=== PATIENT | male | born 1940 | race African-American/Black ===

== ENCOUNTER 2016-10-04 14:59 | Inpatient (IN) | payer MEDICARE, OTHER ==
[~2016-10-04] VITALS: Ht 170.2 cm; Wt 74.5 kg
[~2016-10-04 14:59] MED LIST: AMIT50TA PO; DABI150C PO; DIGO125T PO; DILT120C4 PO; GLIP10TA13 PO; GLIP5TAB10 PO; LISI1TAB7 PO; METF500T4 PO; PROP150T2 PO
--- NOTE | 2016-10-04 15:27 | PHYS DOC ---
Past Medical History Past Medical History: Diabetes-Type II, Heart Disease, Hypertension Past Surgical History: No Surgical History Alcohol Use: None Drug Use: None Adult General HPI HPI Patient is a 76 year old male who presents after syncopal episode. Patient reports stating [place] when he felt a little dizzy and then apparently blacked out. He says he woke up with people surrounding him. He is feeling better now. No lightheadedness at this time. He denies any chest discomfort or shortness of breath at any point. Had a similar episode a few years ago. Review of Systems Review of Systems Constitutional: Lightheaded (resolved), syncope. Denies fever or chills Eyes: Denies change in visual acuity or eye pain HENT: Denies nasal congestion or sore throat Respiratory: Denies cough or shortness of breath Cardiovascular: Denies chest pain GI: Denies abdominal pain, nausea, vomiting, bloody stools or diarrhea : Denies dysuria or hematuria Musculoskeletal: Denies back pain or joint pain Integument: Denies rash or skin lesions Neurologic: Denies headache, focal weakness or sensory changes Current Medications Current Medications Current Medications Medications (Trade) Dose Ordered Sig/Michael Start Time Stop Time Status Last Admin Dose Admin Acetaminophen (Tylenol) 650 mg PRN Q4HRS PRN 10/04/16 16:30 10/05/16 16:29 Dextrose 12.5 gm PRN Q15MIN PRN 10/04/16 16:30 Morphine Sulfate 2 mg PRN Q2HR PRN 10/04/16 16:30 10/05/16 16:29 Ondansetron HCl (Zofran) 4 mg PRN Q8HRS PRN 10/04/16 16:30 10/05/16 16:29 Sodium Chloride (Iv Sodium Chloride 0.9% 500ml Bag) 500 ml @ 500 mls/hr 1X ONCE 10/04/16 16:00 10/04/16 16:59 DC 10/04/16 16:08 500 MLS/HR Allergies Allergies Allergies Coded Allergies Type Severity Reaction Last Updated Verified No Known Drug Allergies 11/30/13 No Physical Exam Physical Exam Constitutional: Well developed, well nourished, no acute distress, non-toxic appearance HENT: Normocephalic, atraumatic, bilateral external ears normal Eyes: PERRL, EOMI, conjunctiva normal, no discharge Neck: Normal range of motion, no stridor Cardiovascular: Heart rate normal, regular rhythm, no murmur Lungs & Thorax: Coarse breath sounds throughout on expiration Abdomen: Bowel sounds normal, soft, non-distended, no TTP Skin: Warm, dry, no erythema, no rash Extremities: No obvious deformity, no edema Neurologic: Alert and oriented X 3, no gross deficits noted Psychologic: Affect normal, judgement normal, mood normal Current Patient Data Vital Signs Vital Signs Date Time Temp Pulse Resp B/P Pulse Ox O2 Delivery O2 Flow Rate FiO2 10/04/16 16:19 76 21 112/59 99 10/04/16 15:19 Room Air 10/04/16 15:06 98.0 98.0 Lab Values Laboratory Tests Test 10/04/16 15:30 White Blood Count 7.8x10^3/uL (4.0-11.0) Red Blood Count 4.59x10^6/uL (4.30-5.70) Hemoglobin 14.1g/dL (13.0-17.5) Hematocrit 43.6% (39.0-53.0) Mean Corpuscular Volume 95fL (79-100) Mean Corpuscular Hemoglobin 31pg (25-35) Mean Corpuscular Hemoglobin Concent 32g/dL (31-37) Red Cell Distribution Width 13.1% (11.5-14.5) Platelet Count 255x10^3/uL (140-400) Neutrophils (%) (Auto) 72% (31-73) Lymphocytes (%) (Auto) 18% (24-48) L Monocytes (%) (Auto) 7% (0-9) Eosinophils (%) (Auto) 2% (0-3) Basophils (%) (Auto) 1% (0-3) Neutrophils # (Auto) 5.6x10^3uL (1.8-7.7) Lymphocytes # (Auto) 1.4x10^3/uL (1.0-4.8) Monocytes # (Auto) 0.5x10^3/uL (0.0-1.1) Eosinophils # (Auto) 0.2x10^3/uL (0.0-0.7) Basophils # (Auto) 0.1x10^3/uL (0.0-0.2) Sodium Level 144mmol/L (136-145) Potassium Level 5.0mmol/L (3.5-5.1) Chloride Level 105mmol/L (98-107) Carbon Dioxide Level 30mmol/L (21-32) Anion Gap 9 (6-14) Blood Urea Nitrogen 25mg/dL (8-26) Creatinine 1.5mg/dL (0.7-1.3) H Estimated GFR (Cockcroft-Gault) 54.9 Glucose Level 121mg/dL (70-99) H Calcium Level 9.3mg/dL (8.5-10.1) Magnesium Level 1.7mg/dL (1.8-2.4) L Troponin I Quantitative < 0.017ng/mL (0.000-0.055) Laboratory Tests 10/04/16 15:30 Laboratory Tests 10/04/16 15:30 EKG EKG EKG (my read): sinus rhythm, irregular, rate 67, incomplete RBBB, no acute ST/T changes Radiology/Procedures Radiology/Procedures CXR: IMPRESSION: 1. Mild chronic prominence of the basilar lung markings suggesting fibrosis. 2. No acute cardiopulmonary abnormality is detected. Course & Med Decision Making Course & Med Decision Making Pertinent Labs and Imaging studies reviewed. (See chart for details) Patient is 76 year old male who presents s/p syncopal episode. Asymptomatic at this time. Will check EKG, CXR, labs to evaluate. Small fluid bolus ordered. Labs notable for mild hypomagnesemia. Oral replacement ordered. Given age and comorbidities, will plan admission. Discussed with Dr. Madrigal, will admit under his care for further evaluation and treatment. Dragon Disclaimer Dragon Disclaimer This electronic medical record was generated, in whole or in part, using a voice recognition dictation system. Departure Departure Impression: Primary Impression: Syncope Disposition: 09 ADMITTED INPATIENT Admitting Physician: Romelia Madrigal Condition: STABLE Referrals: SANTANA LOPEZ MD (PCP) DELANEY CRAWLEY MD Oct 04, 2016 15:27
[2016-10-04 15:45] LABS: BASO # 0.1 x10^3/uL (0.0-0.2); BASO % 1 % (0-3); EOS % 2 % (0-3); HEMATOCRIT 43.6 % (39.0-53.0); HEMOGLOBIN 14.1 g/dL (13.0-17.5); LYMPH # 1.4 x10^3/uL (1.0-4.8); LYMPH % 18 % (24-48); MEAN CORPUSCULAR HEMOGLOBIN 31 pg (25-35); MEAN CORPUSCULAR HGB CONC 32 g/dL (31-37); MEAN CORPUSCULAR VOLUME 95 fL (79-100); MONO % 7 % (0-9); NEUT % 72 % (31-73); PLATELET COUNT 255 x10^3/uL (140-400); RED BLOOD COUNT 4.59 x10^6/uL (4.30-5.70); RED CELL DISTRIBUTION WIDTH 13.1 % (11.5-14.5); WHITE BLOOD COUNT 7.8 x10^3/uL (4.0-11.0)
--- NOTE | 2016-10-04 15:52 | RAD ---
Portable chest, 10/04/2016: History: Syncope Comparison is made to a study from 12/12/2013. The heart appears to be within normal limits in size. The pulmonary vascularity is normal. There is calcific plaquing of the aorta. Mild prominence of the basilar lung markings is probably due fibrosis. No pulmonary consolidation is seen. There is no evidence of pleural fluid. IMPRESSION: 1. Mild chronic prominence of the basilar lung markings suggesting fibrosis. 2. No acute cardiopulmonary abnormality is detected.
[2016-10-04] MEDS ORDERED: IV NORMAL SALINE 500ML BAG 500 ML IV ONE (16:00)
[2016-10-04 16:06] LABS: CALCIUM 9.3 mg/dL (8.5-10.1); CREATININE 1.5 mg/dL (0.7-1.3); GFR 54.9; MAGNESIUM 1.7 mg/dL (1.8-2.4)
[2016-10-04] MEDS ORDERED: ACETAMINOPHEN 325 MG TABLET. PO PRN (16:30)
[2016-10-04] MEDS ORDERED: ONDANSETRON PF 4 MG/2 ML VIAL. IV PRN (16:30)
[2016-10-04] MEDS ORDERED: DEXTROSE 50% 25 GM / 50ML DISP.SYRIN. IV PRN (16:30)
[2016-10-04] MEDS ORDERED: MORPHINE SULFATE 2 MG/ML DISP.SYRIN. IV PRN (16:30)
[2016-10-04] MEDS: INSULIN ASPART 300 UNITS/3 ML INSULN.PEN SQ SCH (17:00)
[2016-10-04] MEDS ORDERED: MAGNESIUM OXIDE 400 MG TABLET PO ONE (17:00)
[2016-10-04 18:09] VITALS: BP 130/54
--- NOTE | 2016-10-04 18:10 | ACF ---
Admission Forms Criteria SYNCOPE Clinical Indications for Admission to Inpatient Care ( Place 'X' for any and all applicable criteria): Admission is indicated for syncope and ANY ONE of the following (1)(2)(3)(4)(5) (6)(7) : [X]I. Inpatient admission required rather than observation care (Also use Syncope: Observation Care Criteria as appropriate) because of ANY ONE of the following: [ ]a) Hemodynamic instability that is severe or persistent [ ]b) Cardiac arrhythmias of immediate concern identified or strongly suspected (eg, needs electrophysiologic study) [ ]c) Acute coronary syndrome identified (Also use Myocardial Infarction or Angina Criteria form ) [ ]d) Structural cardiac disorder (eg, aortic stenosis) suspected as cause that requires immediate correction [ ]e) Respiratory symptoms (eg, dyspnea, tachypnea) that are severe or persistent [ ]f) Neurologic signs or symptoms that are severe or persistent ( eg, stroke, seizures, altered mental status) [ ]g) Severe electrolyte abnormalities requiring inpatient care [ ]h) Supplemental oxygen or respiratory treatment for over 24 hrs that are performable only in acute inpatient setting [ ]i) IV fluid to replace significant ongoing (eg, for over 24 hrs ) losses (>3 L/m2 per day) [ ]j) Continuous intravenous infusion of anticoagulation, platelet inhibitor, vasoactive, or antiarrhythmic medication(15)(16) [ ]k) Pulmonary artery catheter monitoring [ ]l) Temporary pacemaker placement(17) [ ]m) Emergent cardioversion(18) [X]n) Other conditions, treatment or monitoring requiring inpatient admission [ ]II. Suspicion of imminently dangerous cause (eg, rare causes like pericardial tamponade, pulmonary embolism) [ ]III. Syncope causing severe injury requiring hospitalization Extended stay beyond goal length of stay may be needed for(28) [ ]a) Dangerous arrhythmia(15)(23)(27)(29) [ ]b) Myocardial ischemia [ ]c) Seizure disorder [ ]d) Syncope-related injuries The original [employer] content created by [employer] has been revised. The portions of the content which have been revised are identified through the use of italic text or in bold, and Eliana RazoSuo Yi has neither reviewed nor approved the modified material. All other unmodified content is copyright [employer]. Please see references footnoted in the original [facility] edition 2016 Admission Criteria Met?: Yes HUONG MAURICIO Oct 04, 2016 18:09
[2016-10-04 19:59] VITALS: BP 118/54
[2016-10-04 22:36] VITALS: BP 104/56
--- NOTE | 2016-10-05 00:34 | HP ---
ADMIT DATE: 10/04/2016 CHIEF COMPLAINT: Syncope. HISTORY OF PRESENT ILLNESS: The patient is a pleasant elderly male who was at the [facility] [place], he passed out. The next thing he knew is he woke up with people standing over him. They called the ambulance. I have discussed the case with the ER physician. We are to admit the patient and consult Cardiology. PAST MEDICAL HISTORY: Diabetes, hypertension and coronary artery disease. ALLERGIES: None. FAMILY HISTORY: Coronary artery disease. SOCIAL HISTORY: He does not drink, smoke or take drugs. MEDICATIONS: Reviewed, please refer to the MRAD. REVIEW OF SYSTEMS: GENERAL: No history of weight change, weakness or fevers. SKIN: No bruising, hair changes or rashes. EYES: No blurred, double or loss of vision. NOSE AND THROAT: No history of nosebleeds, hoarseness or sore throat. HEART: No history of palpitations, chest pain or shortness of breath on exertion. LUNGS: Denies cough, hemoptysis, wheezing or shortness of breath. GASTROINTESTINAL: Denies changes in appetite, nausea, vomiting, diarrhea or constipation. GENITOURINARY: No history of frequency, urgency, hesitancy or nocturia. NEUROLOGIC: Denies history of numbness, tingling, tremor or weakness. PSYCHIATRIC: No history of panic, anxiety or depression. ENDOCRINE: No history of heat or cold intolerance, polyuria or polydipsia. EXTREMITIES: Denies muscle weakness, joint pain, pain on walking or stiffness. PHYSICAL EXAMINATION: VITAL SIGNS: Temperature afebrile, pulse 77, respirations 19, blood pressure 130/54. GENERAL: He is weak. He is sleeping. He awakens, though. He is pleasant and cooperative. HEART: Distant S1, S2. LUNGS: Clear. ABDOMEN: Soft, positive bowel sounds. EXTREMITIES: No edema. SKIN: No rashes. ENDOCRINE: No thyromegaly. LYMPHATICS: No cervical nodes. HEMATOPOIETIC: No bruising. LABORATORY DATA: Hematology normal. Electrolytes normal other than a creatinine of 1.5. Troponin is 0. ASSESSMENT AND PLAN: Syncope. The patient has been admitted. We are doing cardiac monitoring, resume home medicines. Consult Cardiology. ZAMZAM GARCIA DO DR: ABEL/deng JOB#: [id number] / [id number]
[2016-10-05 03:59] VITALS: BP 96/52
[2016-10-05 07:25] VITALS: BP 106/58
[2016-10-05] MEDS: INSULIN ASPART 300 UNITS/3 ML INSULN.PEN SQ SCH ×2 (07:48→12:00)
--- NOTE | 2016-10-05 09:16 | PDOC2 ---
CARDIAC CONSULT DATE OF CONSULT Date of Consult DATE: 10/05/16 TIME: 09:09 REASON FOR CONSULT Reason for Consult: syncope HISTORY OF PRESENT ILLNESS HISTORY OF PRESENT ILLNESS Mr Devine is a 76 year old male who presents after a syncopal episode. [place] when the episode occurred. He reports feeling some dizziness and then apparently slumped forward. His brother in law caught him before he struck his head. He did not fall off the stool. He states when he woke EMS was walking over to him. He denies biting his tongue, or loss of continence. He reports this same thing happened a couple years ago. He denies any chest discomfort, congestive symptoms, palpitations. He reports dyspnea on exertion and is only able to walk about 2 blocks. He says sometime he has to stop and rest due to fatigue and dyspnea but not always. He does state he never walks further because he "would fall out ". He reports having occasional dizzy spells but that they resolve if he gets up and walks. He says yesterday he did not get up and walk when he became dizzy. He would like to go home. PAST MEDICAL HISTORY Past Medical History Diabetes, hypertension and coronary artery disease. PAST SURGICAL HISTORY Past Surgical History none FAMILY HISTORY Family History Coronary artery disease. SOCIAL HISTORY Social History He smokes .5 to 1 ppd. He denies alcohol or illicit drugs. CURRENT MEDICATIONS CURRENT MEDICATIONS Home meds include: lisinopril/HCT 20/25 daily metformin 500mg daily Current Medications Medications (Trade) Dose Ordered Sig/Michael Route PRN Reason Start Time Stop Time Status Last Admin Dose Admin Sodium Chloride (Iv Sodium Chloride 0.9% 500ml Bag) 500 ml @ 500 mls/hr 1X ONCE IV 10/04/16 16:00 10/04/16 16:59 DC 10/04/16 16:08 Magnesium Oxide (Magnesium Oxide) 400 mg 1X ONCE PO 10/04/16 17:00 10/04/16 17:01 DC 10/04/16 16:55 ALLERGIES ALLERGIES: Coded Allergies: No Known Drug Allergies (Unverified , 11/30/13) ROS Review of System as per HPI or negative PHYSICAL EXAM General: Alert, Oriented X3, Cooperative, No acute distress HEENT: Atraumatic, EOMI, Mucous membr. moist/pink Lungs: Clear to auscultation, Normal air movement Heart: Regular rate, Normal S1, Normal S2, Other (no gallops,clicks or rubs) Abdomen: Normal bowel sounds, Soft, No tenderness Extremities: No cyanosis, No edema, Normal pulses Neuro: Normal gait, Normal speech, Strength at 5/5 X4 ext Psych/Mental Status: Mental status NL, Mood NL VITALS VITALS tele - sinus bradycardia in the low 40s with occasional PACs, HR up to 90s with exertion. Vital Signs Date Time Temp Pulse Resp B/P Pulse Ox O2 Delivery O2 Flow Rate FiO2 10/05/16 07:25 98.5 78 16 106/58 98 Room Air 98.5 LABS Lab: Laboratory Tests Test 10/04/16 15:30 10/04/16 20:28 10/04/16 22:35 10/05/16 04:04 White Blood Count 7.8x10^3/uL (4.0-11.0) Red Blood Count 4.59x10^6/uL (4.30-5.70) Hemoglobin 14.1g/dL (13.0-17.5) Hematocrit 43.6% (39.0-53.0) Mean Corpuscular Volume 95fL (79-100) Mean Corpuscular Hemoglobin 31pg (25-35) Mean Corpuscular Hemoglobin Concent 32g/dL (31-37) Red Cell Distribution Width 13.1% (11.5-14.5) Platelet Count 255x10^3/uL (140-400) Neutrophils (%) (Auto) 72% (31-73) Lymphocytes (%) (Auto) 18% (24-48) Monocytes (%) (Auto) 7% (0-9) Eosinophils (%) (Auto) 2% (0-3) Basophils (%) (Auto) 1% (0-3) Neutrophils # (Auto) 5.6x10^3uL (1.8-7.7) Lymphocytes # (Auto) 1.4x10^3/uL (1.0-4.8) Monocytes # (Auto) 0.5x10^3/uL (0.0-1.1) Eosinophils # (Auto) 0.2x10^3/uL (0.0-0.7) Basophils # (Auto) 0.1x10^3/uL (0.0-0.2) Sodium Level 144mmol/L (136-145) Potassium Level 5.0mmol/L (3.5-5.1) Chloride Level 105mmol/L (98-107) Carbon Dioxide Level 30mmol/L (21-32) Anion Gap 9 (6-14) Blood Urea Nitrogen 25mg/dL (8-26) Creatinine 1.5mg/dL (0.7-1.3) Estimated GFR (Cockcroft-Gault) 54.9 Glucose Level 121mg/dL (70-99) Calcium Level 9.3mg/dL (8.5-10.1) Magnesium Level 1.7mg/dL (1.8-2.4) Troponin I Quantitative < 0.017ng/mL (0.000-0.055) < 0.017ng/mL (0.000-0.055) < 0.017ng/mL (0.000-0.055) Glucose (Fingerstick) 135mg/dL (70-99) Test 10/05/16 07:41 Glucose (Fingerstick) 93mg/dL (70-99) IMAGES IMAGES CXR - IMPRESSION: 1. Mild chronic prominence of the basilar lung markings suggesting fibrosis. 2. No acute cardiopulmonary abnormality is detected. EKG EKG pending ASSESSMENT/PLAN ASSESSMENT/PLAN 1. syncope - Chelsi negative, no new episodes. 2. bradycardia - sinus with PACs, low rate 42. + chronotropic response. 3. hypertension - controlled 4. hypomagnesemia - replace per IM 5. renal insufficiency, likely chronic stage 3 6. diabetes mellitus - mgmt per IM Suggest echocardiogram and outpatient event monitoring and MPI. Avoid any AV jayashree blocking agents. Problems: DIANN HENLEY APRN Oct 05, 2016 09:16
[2016-10-05] MEDS ORDERED: ONDANSETRON PF 4 MG/2 ML VIAL. IV PRN (09:25)
--- NOTE | 2016-10-05 09:51 | EKG ---
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
[2016-10-05] MEDS ORDERED: HYDROCHLOROTHIAZIDE 25 MG TABLET PO SCH (10:00)
[2016-10-05] MEDS ORDERED: METFORMIN 500 MG TABLET. PO SCH (10:00)
[2016-10-05] MEDS ORDERED: LISINOPRIL 20 MG TABLET PO SCH (10:00)
[2016-10-05 10:18] VITALS: BP_SYST 93; BP_SYST 98; BP_DIAS 50; BP_DIAS 53
--- NOTE | 2016-10-05 12:18 | PDOC3 ---
Discharge Summary Visit Information Date of Admission: Oct 04, 2016 Date of Discharge: Oct 05, 2016 Admitting Diagnosis Comment: Syncope - likley vagal r/o arrhythmia Diabetes, hypertension and coronary artery disease. Final Diagnosis Problems Medical Problems: (1) Syncope Status: Acute Brief Hospital Course Allergies Allergies Coded Allergies Type Severity Reaction Last Updated Verified No Known Drug Allergies 11/30/13 No Vital Signs Vital Signs Date Time Temp Pulse Resp B/P Pulse Ox O2 Delivery O2 Flow Rate FiO2 10/05/16 10:18 67 93/50 98/53 10/05/16 07:25 98.5 16 98 Room Air 98.5 Lab Results Laboratory Tests Test 10/04/16 15:30 10/04/16 20:28 10/04/16 22:35 10/05/16 04:04 White Blood Count 7.8x10^3/uL (4.0-11.0) Red Blood Count 4.59x10^6/uL (4.30-5.70) Hemoglobin 14.1g/dL (13.0-17.5) Hematocrit 43.6% (39.0-53.0) Mean Corpuscular Volume 95fL (79-100) Mean Corpuscular Hemoglobin 31pg (25-35) Mean Corpuscular Hemoglobin Concent 32g/dL (31-37) Red Cell Distribution Width 13.1% (11.5-14.5) Platelet Count 255x10^3/uL (140-400) Neutrophils (%) (Auto) 72% (31-73) Lymphocytes (%) (Auto) 18% (24-48) Monocytes (%) (Auto) 7% (0-9) Eosinophils (%) (Auto) 2% (0-3) Basophils (%) (Auto) 1% (0-3) Neutrophils # (Auto) 5.6x10^3uL (1.8-7.7) Lymphocytes # (Auto) 1.4x10^3/uL (1.0-4.8) Monocytes # (Auto) 0.5x10^3/uL (0.0-1.1) Eosinophils # (Auto) 0.2x10^3/uL (0.0-0.7) Basophils # (Auto) 0.1x10^3/uL (0.0-0.2) Sodium Level 144mmol/L (136-145) Potassium Level 5.0mmol/L (3.5-5.1) Chloride Level 105mmol/L (98-107) Carbon Dioxide Level 30mmol/L (21-32) Anion Gap 9 (6-14) Blood Urea Nitrogen 25mg/dL (8-26) Creatinine 1.5mg/dL (0.7-1.3) Estimated GFR (Cockcroft-Gault) 54.9 Glucose Level 121mg/dL (70-99) Calcium Level 9.3mg/dL (8.5-10.1) Magnesium Level 1.7mg/dL (1.8-2.4) Troponin I Quantitative < 0.017ng/mL (0.000-0.055) < 0.017ng/mL (0.000-0.055) < 0.017ng/mL (0.000-0.055) Glucose (Fingerstick) 135mg/dL (70-99) Test 10/05/16 07:41 10/05/16 11:11 Glucose (Fingerstick) 93mg/dL (70-99) 156mg/dL (70-99) Laboratory Tests Test 10/04/16 15:30 10/04/16 20:28 10/04/16 22:35 10/05/16 04:04 White Blood Count 7.8x10^3/uL (4.0-11.0) Red Blood Count 4.59x10^6/uL (4.30-5.70) Hemoglobin 14.1g/dL (13.0-17.5) Hematocrit 43.6% (39.0-53.0) Mean Corpuscular Volume 95fL (79-100) Mean Corpuscular Hemoglobin 31pg (25-35) Mean Corpuscular Hemoglobin Concent 32g/dL (31-37) Red Cell Distribution Width 13.1% (11.5-14.5) Platelet Count 255x10^3/uL (140-400) Neutrophils (%) (Auto) 72% (31-73) Lymphocytes (%) (Auto) 18% (24-48) Monocytes (%) (Auto) 7% (0-9) Eosinophils (%) (Auto) 2% (0-3) Basophils (%) (Auto) 1% (0-3) Neutrophils # (Auto) 5.6x10^3uL (1.8-7.7) Lymphocytes # (Auto) 1.4x10^3/uL (1.0-4.8) Monocytes # (Auto) 0.5x10^3/uL (0.0-1.1) Eosinophils # (Auto) 0.2x10^3/uL (0.0-0.7) Basophils # (Auto) 0.1x10^3/uL (0.0-0.2) Sodium Level 144mmol/L (136-145) Potassium Level 5.0mmol/L (3.5-5.1) Chloride Level 105mmol/L (98-107) Carbon Dioxide Level 30mmol/L (21-32) Anion Gap 9 (6-14) Blood Urea Nitrogen 25mg/dL (8-26) Creatinine 1.5mg/dL (0.7-1.3) Estimated GFR (Cockcroft-Gault) 54.9 Glucose Level 121mg/dL (70-99) Calcium Level 9.3mg/dL (8.5-10.1) Magnesium Level 1.7mg/dL (1.8-2.4) Troponin I Quantitative < 0.017ng/mL (0.000-0.055) < 0.017ng/mL (0.000-0.055) < 0.017ng/mL (0.000-0.055) Glucose (Fingerstick) 135mg/dL (70-99) Test 10/05/16 07:41 10/05/16 11:11 Glucose (Fingerstick) 93mg/dL (70-99) 156mg/dL (70-99) Brief Hospital Course Mr. Devine is a 76 old AA m,deepthi [place], Remained UR cardiac anderson overnight, CARds saw, advised OP MPI and echo, Pt ddi well with PT < Advised stop metformin (crea 1.5) unitl rpt BMP 1-2 weeks by PCP Rx all; given to RN and pt Pt seen and examined Discharge Information Condition at Discharge: Improved, Stable Follow Up: Weeks (OP echo and MPI, BMP 1-2 weeks by PCP for RAMBO) Disposition/Orders: D/C to Home Scheduled Amitriptyline Hcl (Amitriptyline Hcl) 50 MG PO HS (Reported) Lisinopril/Hydrochlorothiazide (Lisinopril-Hctz 20-25 Mg Tab) 1 TAB PO DAILY ( Reported) Metformin Hcl (Metformin Hcl) 500 MG PO BID (Reported) LE SANFORD MD Oct 05, 2016 12:18
[2016-10-05] MEDS ORDERED: AMITRIPTYLINE HCL 50 MG TABLET PO SCH (21:00)
== END 2016-10-05 13:45 | disposition home or self-care (01) | DRG 312 ==
LOC: ER 14:59 → 5 SOUTH 16:36
PROVIDERS: ADMIT Internal Medicine; ATTEND Internal Medicine
DX: R55 Syncope and collapse (principal); E11.9 Type 2 diabetes mellitus without complications; E83.42 Hypomagnesemia; F17.200 Nicotine dependence, unspecified, uncomplicated; I25.10 Atherosclerotic heart disease of native coronary artery without angina pectoris; I12.9 Hypertensive chronic kidney disease with stage 1 through stage 4 chronic kidney disease, or unspecified chronic kidney disease; N18.3 Chronic kidney disease, stage 3 (moderate); Z82.49 Family history of ischemic heart disease and other diseases of the circulatory system
CPT/HCPCS: 36415; 71010; 80048; 82947; 83735; 84484; 85027; 93005; 96360; J1815; J7040; 97530; 99285-25

== ENCOUNTER 2017-12-28 18:48 | Inpatient (IN) | payer MEDICARE ==
[2017-12-28 21:06] LABS: ADD MAN DIFF? NO
[2017-12-28 21:08] LABS: BASO % 1 % (0-3); EOS # 0.2 x10^3/uL (0.0-0.7); EOS % 2 % (0-3); HEMATOCRIT 41.3 % (39.0-53.0); HEMOGLOBIN 13.7 g/dL (13.0-17.5); LYMPH # 1.2 x10^3/uL (1.0-4.8); LYMPH % 16 % (24-48); MEAN CORPUSCULAR HEMOGLOBIN 32 pg (25-35); MEAN CORPUSCULAR HGB CONC 33 g/dL (31-37); MEAN CORPUSCULAR VOLUME 96 fL (79-100); MONO # 0.6 x10^3/uL (0.0-1.1); MONO % 8 % (0-9); NEUT # 5.4 x10^3uL (1.8-7.7); NEUT % 73 % (31-73); PLATELET COUNT 192 x10^3/uL (140-400); RED CELL DISTRIBUTION WIDTH 13.3 % (11.5-14.5); WHITE BLOOD COUNT 7.4 x10^3/uL (4.0-11.0)
[2017-12-28 21:40] LABS: ANION GAP 4 (6-14); BLOOD UREA NITROGEN 17 mg/dL (8-26); BUN/CREATININE RATIO 11 (6-20); CALCIUM 8.5 mg/dL (8.5-10.1); CARBON DIOXIDE 29 mmol/L (21-32); CHLORIDE 110 mmol/L (98-107); CREATININE 1.6 mg/dL (0.7-1.3); GFR 50.8; GLUCOSE 156 mg/dL (70-99); SODIUM 143 mmol/L (136-145)
[2017-12-28 21:46] LABS: ALBUMIN 3.2 g/dL (3.4-5.0); ALBUMIN/GLOBULIN RATIO 0.8 (1.0-1.7); ALK PHOS 108 U/L (46-116); ALT (SGPT) 42 U/L (16-63); AST (SGOT) 23 U/L (15-37); TOTAL BILIRUBIN 0.4 mg/dL (0.2-1.0); TOTAL PROTEIN 7.2 g/dL (6.4-8.2)
[2017-12-28 21:52] LABS: NT-PRO BNP 555 pg/mL (0-449)
[2017-12-28] MEDS ORDERED: MORPHINE SULFATE 4 MG/ML DISP.SYRIN. IV (22:45)
[2017-12-28] MEDS ORDERED: ACETAMINOPHEN 325 MG TABLET. PO (22:45)
[2017-12-28] MEDS ORDERED: ONDANSETRON PF 4 MG/2 ML VIAL. IV (22:45)
[2017-12-28] MEDS ORDERED: NITROGLYCERIN SUBLINGUAL 0.4 MG BOTTLE OF 25. SL (22:45)
[2017-12-28] MEDS: cloNIDine HCL 0.1 MG TABLET PO (23:21)
[2017-12-29 04:26] LABS: ADD MAN DIFF? NO
[2017-12-29 04:33] LABS: BASO % 1 % (0-3); EOS # 0.2 x10^3/uL (0.0-0.7); EOS % 3 % (0-3); HEMOGLOBIN 12.6 g/dL (13.0-17.5); LYMPH # 1.3 x10^3/uL (1.0-4.8); LYMPH % 21 % (24-48); MEAN CORPUSCULAR HEMOGLOBIN 32 pg (25-35); MEAN CORPUSCULAR HGB CONC 33 g/dL (31-37); MEAN CORPUSCULAR VOLUME 96 fL (79-100); MONO # 0.6 x10^3/uL (0.0-1.1); MONO % 10 % (0-9); NEUT # 4.1 x10^3uL (1.8-7.7); NEUT % 65 % (31-73); PLATELET COUNT 176 x10^3/uL (140-400); RED BLOOD COUNT 3.97 x10^6/uL (4.30-5.70); RED CELL DISTRIBUTION WIDTH 13.3 % (11.5-14.5); WHITE BLOOD COUNT 6.3 x10^3/uL (4.0-11.0)
[2017-12-29 05:35] LABS: ANION GAP 5 (6-14); BLOOD UREA NITROGEN 16 mg/dL (8-26); CALCIUM 7.6 mg/dL (8.5-10.1); CARBON DIOXIDE 28 mmol/L (21-32); CHLORIDE 111 mmol/L (98-107); CREATININE 1.5 mg/dL (0.7-1.3); GFR 54.8; GLUCOSE 124 mg/dL (70-99); POTASSIUM 3.6 mmol/L (3.5-5.1); SODIUM 144 mmol/L (136-145)
[2017-12-29] MEDS: IPRATRPIUM/ALBUTEROL 0.5/2.5MG 3 ML NEBU. NEB ×4 (07:36→20:26)
[2017-12-29 08:46] LABS: POC GLUCOSE 135 mg/dL (70-99)
[2017-12-29] MEDS: ENOXAPARIN 40 MG/0.4 ML SYRINGE. SQ (10:16)
[2017-12-29 11:30] LABS: POC GLUCOSE 162 mg/dL (70-99)
[2017-12-29] MEDS: hydroCHLOROthiazide 12.5 MG CAPSULE PO (11:42)
[2017-12-29] MEDS: LISINOPRIL 20 MG TABLET PO (11:42)
[2017-12-29] MEDS: INSULIN LISPRO 300 UNITS/3 ML INSULN.PEN. SQ ×2 (11:48→17:12)
[2017-12-29 16:59] LABS: POC GLUCOSE 155 mg/dL (70-99)
[2017-12-29 20:56] LABS: POC GLUCOSE 189 mg/dL (70-99)
[2017-12-30] MEDS: IPRATRPIUM/ALBUTEROL 0.5/2.5MG 3 ML NEBU. NEB (07:13)
[2017-12-30 07:59] LABS: POC GLUCOSE 103 mg/dL (70-99)
[2017-12-30] MEDS: INSULIN LISPRO 300 UNITS/3 ML INSULN.PEN. SQ ×3 (08:00→17:00)
[2017-12-30] MEDS: ENOXAPARIN 40 MG/0.4 ML SYRINGE. SQ (09:27)
[2017-12-30 11:54] LABS: POC GLUCOSE 186 mg/dL (70-99)
[2017-12-30 15:06] LABS: ANION GAP 7 (6-14); BLOOD UREA NITROGEN 12 mg/dL (8-26); CALCIUM 8.4 mg/dL (8.5-10.1); CARBON DIOXIDE 29 mmol/L (21-32); CHLORIDE 106 mmol/L (98-107); CREATININE 1.5 mg/dL (0.7-1.3); GFR 54.8; GLUCOSE 96 mg/dL (70-99); MAGNESIUM 1.7 mg/dL (1.8-2.4); POTASSIUM 3.8 mmol/L (3.5-5.1); SODIUM 142 mmol/L (136-145)
[2017-12-30 15:18] LABS: THYROID STIM HORMONE (TSH) 2.489 uIU/mL (0.358-3.74)
[2017-12-30] MEDS: amLODIPine BESYLATE 5 MG TABLET PO (15:53)
[2017-12-30 16:50] LABS: POC GLUCOSE 67 mg/dL (70-99)
[2017-12-30 17:18] LABS: POC GLUCOSE 82 mg/dL (70-99)
[2017-12-30] MEDS: MAGNESIUM SULFATE 1GM 100 ML IV (20:32)
[2017-12-30 20:52] LABS: POC GLUCOSE 136 mg/dL (70-99)
[2017-12-31] MEDS: INSULIN LISPRO 300 UNITS/3 ML INSULN.PEN. SQ ×3 (08:00→16:44)
[2017-12-31 08:24] LABS: POC GLUCOSE 99 mg/dL (70-99)
[2017-12-31 08:30] LABS: CHOLESTEROL 169 mg/dL (0-200); HDLC 43 mg/dL (40-60); LDLC 111 mg/dL (0-100); NON-HDL CHOLESTEROL 126 mg/dL (0-129); TRIGLYCERIDES 74 mg/dL (0-150); VLDLC 15 mg/dL (0-40)
[2017-12-31 08:33] LABS: CHOLESTEROL/HDL RATIO 3.9
[2017-12-31] MEDS: REGADENOSON 0.4 MG/5 ML DISP.SYRIN. IV (10:40)
[2017-12-31 11:47] LABS: POC GLUCOSE 130 mg/dL (70-99)
[2017-12-31] MEDS: hydroCHLOROthiazide 12.5 MG CAPSULE PO (11:55)
[2017-12-31] MEDS: LISINOPRIL 10 MG TABLET PO (11:55)
[2017-12-31] MEDS: ASPIRIN ENTERIC COATED 81 MG TABLET.DR. PO (11:55)
[2017-12-31] MEDS: amLODIPine BESYLATE 5 MG TABLET PO ×2 (11:57→19:59)
[2017-12-31] MEDS: ENOXAPARIN 40 MG/0.4 ML SYRINGE. SQ (11:58)
[2017-12-31 16:21] LABS: POC GLUCOSE 127 mg/dL (70-99)
[2017-12-31] MEDS ORDERED: hydrALAZINE 20 MG/ML VIAL. IVP (17:30)
[2017-12-31 20:51] LABS: POC GLUCOSE 137 mg/dL (70-99)
[2017-12-31] MEDS: ATORVASTATIN CALCIUM 10 MG TABLET. PO (20:55)
[2018-01-01 07:49] LABS: POC GLUCOSE 102 mg/dL (70-99)
[2018-01-01] MEDS: INSULIN LISPRO 300 UNITS/3 ML INSULN.PEN. SQ ×3 (07:51→17:29)
[2018-01-01] MEDS: ENOXAPARIN 40 MG/0.4 ML SYRINGE. SQ (07:53)
[2018-01-01] MEDS: hydroCHLOROthiazide 12.5 MG CAPSULE PO (07:53)
[2018-01-01] MEDS: amLODIPine BESYLATE 5 MG TABLET PO ×2 (07:53→11:11)
[2018-01-01] MEDS: ASPIRIN ENTERIC COATED 81 MG TABLET.DR. PO (07:54)
[2018-01-01] MEDS: LISINOPRIL 10 MG TABLET PO (07:54)
[2018-01-01 11:28] LABS: POC GLUCOSE 129 mg/dL (70-99)
[2018-01-01 11:45] LABS: ANION GAP 8 (6-14); BLOOD UREA NITROGEN 13 mg/dL (8-26); CALCIUM 9.2 mg/dL (8.5-10.1); CARBON DIOXIDE 29 mmol/L (21-32); CHLORIDE 101 mmol/L (98-107); CREATININE 1.3 mg/dL (0.7-1.3); GFR 64.6; GLUCOSE 131 mg/dL (70-99); POTASSIUM 3.7 mmol/L (3.5-5.1); SODIUM 138 mmol/L (136-145)
[2018-01-01] MEDS ORDERED: LIDOCAINE 2%/EPI 1:100,000 20 ML VIAL. (12:41)
[2018-01-01] MEDS ORDERED: fentaNYL PF VIAL 250 MCG/5 ML VIAL (13:24)
[2018-01-01] MEDS ORDERED: MIDAZOLAM HCL/PF 5 MG/5 ML VIAL. (13:25)
[2018-01-01] MEDS: fentaNYL PF VIAL 250 MCG/5 ML VIAL IV (14:36)
[2018-01-01] MEDS: LIDOCAINE 2%/EPI 1:100,000 20 ML VIAL. IJ (14:36)
[2018-01-01] MEDS: MIDAZOLAM HCL/PF 5 MG/5 ML VIAL. IV (14:37)
[2018-01-01] MEDS: BACITRACIN 50,000 UNIT in IV NORMAL SALINE 250ML 250 ML IRR (14:37)
[2018-01-01] MEDS: METOPROLOL TARTRATE 5 MG/5 ML VIAL. IVP (15:52)
[2018-01-01] MEDS ORDERED: oxyCODONE/APAP 5/325 1 TAB TABLET PO (16:00)
[2018-01-01] MEDS ORDERED: NO ANTICOAGULANT THERAPY. MC (16:00)
[2018-01-01 17:02] LABS: POC GLUCOSE 183 mg/dL (70-99)
[2018-01-01] MEDS: METOPROLOL TART IMMED RELEASE 25 MG TABLET. PO (17:29)
[2018-01-01 20:39] LABS: BILIRUBIN,URINE NEGATIVE (NEG); CLARITY,URINE CLEAR; COLOR,URINE YELLOW; GLUCOSE,URINE NEGATIVE (NEG); NITRITE,URINE NEGATIVE (NEG); PROTEIN,URINE NEGATIVE (NEG-TRACE)
[2018-01-01 20:53] LABS: BACTERIA,URINE MOD /HPF (0-FEW); RBC,URINE 0 /HPF (0-2); SQUAMOUS EPITHELIAL CELL,UR OCC /LPF
[2018-01-01] MEDS: ATORVASTATIN CALCIUM 10 MG TABLET. PO (20:56)
[2018-01-01 21:05] LABS: POC GLUCOSE 206 mg/dL (70-99)
[2018-01-02] MEDS: METOPROLOL TART IMMED RELEASE 25 MG TABLET. PO ×4 (00:33→22:42)
[2018-01-02] MEDS: FUROSEMIDE 40 MG/4 ML VIAL. IVP ×3 (07:45→14:59)
[2018-01-02 08:00] LABS: POC GLUCOSE 105 mg/dL (70-99)
[2018-01-02] MEDS: INSULIN LISPRO 300 UNITS/3 ML INSULN.PEN. SQ ×3 (08:00→17:00)
[2018-01-02] MEDS: ENOXAPARIN 40 MG/0.4 ML SYRINGE. SQ (09:22)
[2018-01-02] MEDS: hydroCHLOROthiazide 12.5 MG CAPSULE PO (09:22)
[2018-01-02] MEDS: amLODIPine BESYLATE 5 MG TABLET PO (09:22)
[2018-01-02] MEDS: LISINOPRIL 10 MG TABLET PO (09:22)
[2018-01-02] MEDS: ASPIRIN ENTERIC COATED 81 MG TABLET.DR. PO (09:22)
[2018-01-02] MEDS: FUROSEMIDE 40 MG TABLET. PO (10:36)
[2018-01-02 12:23] LABS: ANION GAP 10 (6-14); BLOOD UREA NITROGEN 17 mg/dL (8-26); CALCIUM 8.8 mg/dL (8.5-10.1); CARBON DIOXIDE 28 mmol/L (21-32); CHLORIDE 100 mmol/L (98-107); CREATININE 1.6 mg/dL (0.7-1.3); GFR 50.8; GLUCOSE 198 mg/dL (70-99); MAGNESIUM 1.7 mg/dL (1.8-2.4); POTASSIUM 4.1 mmol/L (3.5-5.1); SODIUM 138 mmol/L (136-145)
[2018-01-02 12:36] LABS: POC GLUCOSE 213 mg/dL (70-99)
[2018-01-02] MEDS: DIGOXIN IV 500 MCG/2 ML AMPUL. IV (13:19)
[2018-01-02] MEDS: FUROSEMIDE 20 MG/2 ML VIAL. IVP ×2 (13:20→13:30)
[2018-01-02] MEDS: METOPROLOL TARTRATE 5 MG/5 ML VIAL. IVP (13:30)
[2018-01-02] MEDS ORDERED: ANTI-COAG MONITOR BY PHARMACY. MC (13:45)
[2018-01-02 16:56] LABS: POC GLUCOSE 109 mg/dL (70-99)
[2018-01-02] MEDS: ATORVASTATIN CALCIUM 10 MG TABLET. PO (20:36)
[2018-01-03] MEDS: METOPROLOL TART IMMED RELEASE 25 MG TABLET. PO ×2 (06:44→20:33)
[2018-01-03] MEDS: INSULIN LISPRO 300 UNITS/3 ML INSULN.PEN. SQ ×3 (08:00→17:00)
[2018-01-03 08:19] LABS: POC GLUCOSE 149 mg/dL (70-99)
[2018-01-03] MEDS ORDERED: METOPROLOL TART IMMED RELEASE 25 MG TABLET. PO (09:00)
[2018-01-03] MEDS: hydroCHLOROthiazide 12.5 MG CAPSULE PO (09:09)
[2018-01-03] MEDS: amLODIPine BESYLATE 5 MG TABLET PO (09:09)
[2018-01-03] MEDS: DIGOXIN IV 500 MCG/2 ML AMPUL. IV ×3 (09:10→18:30)
[2018-01-03] MEDS: LISINOPRIL 10 MG TABLET PO (09:10)
[2018-01-03 12:00] LABS: POC GLUCOSE 184 mg/dL (70-99)
[2018-01-03 13:05] LABS: HEMATOCRIT 50.3 % (39.0-53.0); HEMOGLOBIN 17.2 g/dL (13.0-17.5); MEAN CORPUSCULAR HEMOGLOBIN 32 pg (25-35); MEAN CORPUSCULAR HGB CONC 34 g/dL (31-37); MEAN CORPUSCULAR VOLUME 94 fL (79-100); PLATELET COUNT 168 x10^3/uL (140-400); RED BLOOD COUNT 5.33 x10^6/uL (4.30-5.70); RED CELL DISTRIBUTION WIDTH 13.4 % (11.5-14.5)
[2018-01-03] MEDS: APIXABAN 5 MG TABLET. PO ×2 (13:23→20:32)
[2018-01-03 14:12] LABS: ALBUMIN 3.2 g/dL (3.4-5.0); ALBUMIN/GLOBULIN RATIO 0.7 (1.0-1.7); ALK PHOS 98 U/L (46-116); ALT (SGPT) 61 U/L (16-63); ANION GAP 8 (6-14); AST (SGOT) 55 U/L (15-37); BLOOD UREA NITROGEN 31 mg/dL (8-26); BUN/CREATININE RATIO 17 (6-20); CALCIUM 9.2 mg/dL (8.5-10.1); CARBON DIOXIDE 25 mmol/L (21-32); CHLORIDE 100 mmol/L (98-107); CREATININE 1.8 mg/dL (0.7-1.3); GFR 44.4; GLUCOSE 169 mg/dL (70-99); SODIUM 133 mmol/L (136-145); TOTAL BILIRUBIN 0.5 mg/dL (0.2-1.0); TOTAL PROTEIN 7.5 g/dL (6.4-8.2)
[2018-01-03] MEDS ORDERED: IV NORMAL SALINE 250ML 250 ML IV (14:15)
[2018-01-03] MEDS: IV NORMAL SALINE 500ML BAG 250 ML IV (14:15)
[2018-01-03] MEDS: MAGNESIUM CHLORIDE ER 64 MG TABLET.ER PO ×2 (15:18→20:32)
[2018-01-03 17:30] LABS: POC GLUCOSE 126 mg/dL (70-99)
[2018-01-03] MEDS: ATORVASTATIN CALCIUM 10 MG TABLET. PO (20:32)
[2018-01-03 21:16] LABS: POC GLUCOSE 169 mg/dL (70-99)
[2018-01-04] MEDS: INSULIN LISPRO 300 UNITS/3 ML INSULN.PEN. SQ ×3 (08:00→16:45)
[2018-01-04 08:23] LABS: POC GLUCOSE 123 mg/dL (70-99)
[2018-01-04] MEDS: APIXABAN 5 MG TABLET. PO ×2 (09:24→20:56)
[2018-01-04] MEDS: hydroCHLOROthiazide 12.5 MG CAPSULE PO (09:24)
[2018-01-04] MEDS: MAGNESIUM CHLORIDE ER 64 MG TABLET.ER PO ×2 (09:24→20:56)
[2018-01-04] MEDS: METOPROLOL TART IMMED RELEASE 25 MG TABLET. PO ×2 (09:25→20:58)
[2018-01-04 12:13] LABS: POC GLUCOSE 220 mg/dL (70-99)
[2018-01-04 15:12] LABS: ALBUMIN/GLOBULIN RATIO 0.7 (1.0-1.7); ALK PHOS 88 U/L (46-116); ALT (SGPT) 77 U/L (16-63); ANION GAP 6 (6-14); AST (SGOT) 57 U/L (15-37); BLOOD UREA NITROGEN 29 mg/dL (8-26); BUN/CREATININE RATIO 17 (6-20); CALCIUM 8.5 mg/dL (8.5-10.1); CARBON DIOXIDE 30 mmol/L (21-32); CHLORIDE 101 mmol/L (98-107); CREATININE 1.7 mg/dL (0.7-1.3); GFR 47.4; GLUCOSE 118 mg/dL (70-99); POTASSIUM 4.4 mmol/L (3.5-5.1); SODIUM 137 mmol/L (136-145); TOTAL BILIRUBIN 0.5 mg/dL (0.2-1.0); TOTAL PROTEIN 7.1 g/dL (6.4-8.2)
[2018-01-04] MEDS: DEXTROSE 50% 25 GM / 50ML DISP.SYRIN. IV (16:51)
[2018-01-04 17:02] LABS: POC GLUCOSE 68 mg/dL (70-99)
[2018-01-04 17:44] LABS: POC GLUCOSE 165 mg/dL (70-99)
[2018-01-04] MEDS: ATORVASTATIN CALCIUM 10 MG TABLET. PO (20:56)
[2018-01-04 21:17] LABS: POC GLUCOSE 209 mg/dL (70-99)
[2018-01-05] MEDS: INSULIN LISPRO 300 UNITS/3 ML INSULN.PEN. SQ ×2 (08:00→12:40)
[2018-01-05 08:23] LABS: POC GLUCOSE 142 mg/dL (70-99)
[2018-01-05] MEDS: MAGNESIUM CHLORIDE ER 64 MG TABLET.ER PO (09:43)
[2018-01-05] MEDS: APIXABAN 5 MG TABLET. PO (09:43)
[2018-01-05] MEDS: hydroCHLOROthiazide 12.5 MG CAPSULE PO (09:45)
[2018-01-05] MEDS: METOPROLOL TART IMMED RELEASE 25 MG TABLET. PO (09:48)
[2018-01-05 21:03] LABS: POC GLUCOSE 205 mg/dL (70-99)
== END 2018-01-05 17:29 | DRG 242 ==
LOC: 5 SOUTH 12-29 00:44 → ER 18:48 → 2 SOUTH 01-01 13:19 → 5 SOUTH 22:25
PROC: 0JH606Z Insertion of Pacemaker, Dual Chamber into Chest Subcutaneous Tissue and Fascia, Open Approach (ICD-10-PCS; principal; 2018-01-01)
PROC: 02H63JZ Insertion of Pacemaker Lead into Right Atrium, Percutaneous Approach (ICD-10-PCS; 2018-01-01)
PROC: 02HK3JZ Insertion of Pacemaker Lead into Right Ventricle, Percutaneous Approach (ICD-10-PCS; 2018-01-01)
DX: I13.0 Hypertensive heart and chronic kidney disease with heart failure and stage 1 through stage 4 chronic kidney disease, or unspecified chronic kidney disease (principal); I50.31 Acute diastolic (congestive) heart failure; J96.01 Acute respiratory failure with hypoxia; N17.9 Acute kidney failure, unspecified; I48.92 Unspecified atrial flutter; E11.22 Type 2 diabetes mellitus with diabetic chronic kidney disease; I48.91 Unspecified atrial fibrillation; J44.9 Chronic obstructive pulmonary disease, unspecified; I49.5 Sick sinus syndrome; N18.9 Chronic kidney disease, unspecified; F17.210 Nicotine dependence, cigarettes, uncomplicated; I16.0 Hypertensive urgency; I25.10 Atherosclerotic heart disease of native coronary artery without angina pectoris; Z79.84 Long term (current) use of oral hypoglycemic drugs; Z83.3 Family history of diabetes mellitus
CPT/HCPCS: 33208; 36415; 71045; 71046; 78452; 80048; 80053; 80061; 81001; 82962; 83735; 83880; 84443; 85025; 85027; 93005; 93017; 93306; 94640; 94760; 96374; 96375; 96376; 97110-GP; 97116-GP; 97162-GP; 97164-GP; 97166-GO; 97168-GO; 97530-GO; 97530-GP; 97535-GO; 99152; 99153; 99285; 99285-25; 99406; A9500; C1785; C1898; J0690; J1160; J1650; J1815; J1940; J2250; J2785; J3010; J3475; J3490; J7040; J7042; J7050; J7620

== ENCOUNTER → 2018-06-30 | Outpatient (CLI) | payer MEDICARE ==
[2018-01-05 15:00] VITALS: BP 137/57
[~2018-06-30] MED LIST changes: +BP Med; +METF500T16 PO; -METF500T4 PO
--- NOTE | 2018-06-30 10:27 | CARD ---
MR#: [id number] Date of Study: 06/30/2018 Ordering Physician: NEGRO KILPATRICK, Referring Physician: NEGRO KILPATRICK, Tech: Sophia Rothman MINDY APPROVED REPORT EXAM: Two-dimensional and M-mode echocardiogram with Doppler and color Doppler. Other Information Quality : Good INDICATION Hypertension/HCVD 2D DIMENSIONS RVDd2.3 (2.9-3.5cm)Left Atrium(2D)3.2 (1.6-4.0cm) IVSd0.9 (0.7-1.1cm)Aortic Root(2D)2.8 (2.0-3.7cm) LVDd5.6 (3.9-5.9cm)LVOT Diameter2.2 (1.8-2.4cm) PWd0.9 (0.7-1.1cm)LVDs2.3 (2.5-4.0cm) FS (%) 30.0 %SV135.9 ml LVEF(%)60.0 (>50%) Aortic Valve AoV Peak Hua.148.0cm/sAoV VTI27.6cm AO Peak GR.8.8mmHgLVOT Peak Hua.119.8cm/s AO Mean GR.5mmHgAVA (VMAX)3.02cm2 NIKOLE (VTI)3.60cm2 Mitral Valve MV E Hjdpvtjz53.9cm/sMV DECEL [id number] MV A Nwkuqaxc348.5cm/sE/A Ratio0.7 Tricuspid Valve TR P. Ksfmdeoy576ou/sRAP [id number] TR Peak Gr.93uoXpWTYX22ynMa Pulmonary Vein S1 Igvbmazt75.2cm/sD2 Ynnqdyyk79.0cm/s LEFT VENTRICLE The left ventricle is normal size. There is normal left ventricular wall thickness. The left ventricu lar systolic function is normal. The Ejection Fraction is 55-60%. There is normal LV segmental wall m otion. Transmitral Doppler flow pattern is Grade I-abnormal relaxation pattern. RIGHT VENTRICLE The right ventricle is normal size. The right ventricular systolic function is normal. There is a pac emaker lead in the right ventricle. ATRIA The left atrium size is normal. The right atrium size is normal. A pacemaker is seen in the right atr ium consistent with history. The interatrial septum is intact with no evidence for an atrial septal d efect or patent foramen ovale as noted on 2-D or Doppler imaging. AORTIC VALVE The aortic valve is calcified but opens well. Doppler and Color Flow revealed no significant aortic r egurgitation. There is no significant aortic valvular stenosis. MITRAL VALVE The mitral valve is calcified but opens well. There is no evidence of mitral valve prolapse. There is no mitral valve stenosis. Doppler and Color Flow revealed no mitral valve regurgitation noted. TRICUSPID VALVE The tricuspid valve is normal in structure and function. Doppler and Color Flow revealed trace to mil d tricuspid regurgitation. There is moderate-severe pulmonary hypertension. The PA pressure was estim ated at 68 mmHg. There is no tricuspid valve stenosis. PULMONIC VALVE The pulmonic valve is not well visualized. Doppler and Color Flow revealed no pulmonic valvular regur gitation. There is no pulmonic valvular stenosis. GREAT VESSELS The aortic root is normal in size. The ascending aorta is normal in size. The IVC is normal in size a nd collapses >50% with inspiration. PERICARDIAL EFFUSION There is no evidence of significant pericardial effusion. Critical Notification Critical Value: No <Conclusion> The left ventricular systolic function is normal. The Ejection Fraction is 55-60%. There is normal LV segmental wall motion. Transmitral Doppler flow pattern is Grade I-abnormal relaxation pattern. A pacemaker is seen in the right atrium consistent with history. Trace to mild tricuspid regurgitation. Moderate-severe pulmonary hypertension. The PA pressure was estimated at 68 mmHg. There is no evidence of significant pericardial effusion. Signed by : Chon Nelson, Electronically Approved : 06/30/2018 10:26:52
== END | disposition home or self-care (01) ==
LOC: ECHO 08:44
PROVIDERS: ATTEND Internal Medicine Cardiovascular Disease
DX: I10 Essential (primary) hypertension (principal); Z95.0 Presence of cardiac pacemaker
CPT/HCPCS: 93306

== ENCOUNTER 2018-12-10 12:58 | Observation (INO) | payer MEDICARE ==
[~2018-12-10] VITALS: Ht 170.2 cm; Wt 83.6 kg
--- NOTE | 2018-12-10 13:05 | PHYS DOC ---
Past Medical History Past Medical History: Diabetes-Type II, Heart Disease, Hypertension Past Surgical History: No Surgical History Alcohol Use: None Drug Use: None Adult General Chief Complaint Chief Complaint: RAPID HEART RATE HPI HPI Patient is a 78 year old male was brought here by EMS for evaluation of rapid heart rate. Patient has history of tachy- bradycardia syndrome, had pacemaker placed last year. She said he had been feeling weak and dizzy for about week, he went to see her family doctor today at a regular checkup, they found that his heart rate was fast so they called EMS to take him here for evaluation. Patient denies any trouble breathing or chest pain. He denies any cough or any fever. Review of Systems Review of Systems Constitutional: Denies fever or chills [] Eyes: Denies change in visual acuity, redness, or eye pain [] HENT: Denies nasal congestion or sore throat [] Respiratory: Denies cough or shortness of breath [] Cardiovascular: No additional information not addressed in HPI [] GI: Denies abdominal pain, nausea, vomiting, bloody stools or diarrhea [] : Denies dysuria or hematuria [] Musculoskeletal: Denies back pain or joint pain [] Integument: Denies rash or skin lesions [] Neurologic: Denies headache, focal weakness or sensory changes. POSITIVE FOR WEAK AND DIZZINESS. Endocrine: Denies polyuria or polydipsia [] All other systems were reviewed and found to be within normal limits, except as documented in this note. Current Medications Current Medications Current Medications Medications (Trade) Dose Ordered Sig/Michael Start Time Stop Time Status Last Admin Dose Admin Diltiazem HCl (Cardizem Iv Push) 20 mg 1X ONCE 12/10/18 13:15 12/10/18 13:16 DC 12/10/18 13:23 20 MG Diltiazem HCl 125 mg/Dextrose 125 ml @ 5 mls/hr CONT PRN 12/10/18 13:45 12/11/18 16:27 DC Allergies Allergies Allergies Coded Allergies Type Severity Reaction Last Updated Verified No Known Drug Allergies 11/30/13 No Physical Exam Physical Exam Constitutional: Well developed, well nourished, no acute distress, non-toxic мария earance. [] HENT: Normocephalic, atraumatic, bilateral external ears normal, oropharynx moist, no oral exudates, nose normal. [] Eyes: PERRLA, EOMI, conjunctiva normal, no discharge. [] Neck: Normal range of motion, no tenderness, supple, no stridor. [] Cardiovascular: tachycardia with irregular rhythm, no murmur [] Lungs & Thorax: Bilateral breath sounds clear to auscultation [] Abdomen: Bowel sounds normal, soft, no tenderness, no masses, no pulsatile masses. [] Skin: Warm, dry, no erythema, no rash. [] Back: No tenderness, no CVA tenderness. [] Extremities: No tenderness, no cyanosis, no clubbing, ROM intact, no edema. [] Neurologic: Alert and oriented X 3, normal motor function, normal sensory function, no focal deficits noted. [] Psychologic: Affect normal, judgement normal, mood normal. [] Current Patient Data Vital Signs Vital Signs Date Time Temp Pulse Resp B/P (MAP) Pulse Ox O2 Delivery O2 Flow Rate FiO2 12/10/18 14:18 84 24 102/59 (73) 96 Room Air 12/10/18 13:00 98.8 98.8 Lab Values Laboratory Tests Test 12/10/18 13:10 White Blood Count 8.2 x10^3/uL (4.0-11.0) Red Blood Count 4.41 x10^6/uL (4.30-5.70) Hemoglobin 12.3 g/dL (13.0-17.5) L Hematocrit 39.7 % (39.0-53.0) Mean Corpuscular Volume 90 fL (79-100) Mean Corpuscular Hemoglobin 28 pg (25-35) Mean Corpuscular Hemoglobin Concent 31 g/dL (31-37) Red Cell Distribution Width 14.6 % (11.5-14.5) H Platelet Count 258 x10^3/uL (140-400) Neutrophils (%) (Auto) 75 % (31-73) H Lymphocytes (%) (Auto) 16 % (24-48) L Monocytes (%) (Auto) 7 % (0-9) Eosinophils (%) (Auto) 2 % (0-3) Basophils (%) (Auto) 1 % (0-3) Neutrophils # (Auto) 6.2 x10^3uL (1.8-7.7) Lymphocytes # (Auto) 1.3 x10^3/uL (1.0-4.8) Monocytes # (Auto) 0.6 x10^3/uL (0.0-1.1) Eosinophils # (Auto) 0.2 x10^3/uL (0.0-0.7) Basophils # (Auto) 0.1 x10^3/uL (0.0-0.2) Prothrombin Time 15.3 SEC (11.7-14.0) H Prothrombin Time INR 1.2 (0.8-1.1) H PTT 32 SEC (24-38) Sodium Level 141 mmol/L (136-145) Potassium Level 3.6 mmol/L (3.5-5.1) Chloride Level 102 mmol/L (98-107) Carbon Dioxide Level 26 mmol/L (21-32) Anion Gap 13 (6-14) Blood Urea Nitrogen 22 mg/dL (8-26) Creatinine 1.9 mg/dL (0.7-1.3) H Estimated GFR (Cockcroft-Gault) 41.6 BUN/Creatinine Ratio 12 (6-20) Glucose Level 258 mg/dL (70-99) H Calcium Level 8.7 mg/dL (8.5-10.1) Magnesium Level 1.6 mg/dL (1.8-2.4) L Total Bilirubin 0.4 mg/dL (0.2-1.0) Aspartate Amino Transferase (AST) 15 U/L (15-37) Alanine Aminotransferase (ALT) 17 U/L (16-63) Alkaline Phosphatase 93 U/L (46-116) Creatine Kinase 201 U/L (39-308) Creatine Kinase MB (Mass) 1.4 ng/mL (0.0-3.6) Creatine Kinase MB Relative Index 0.7 % (0-4) Troponin I Quantitative < 0.017 ng/mL (0.000-0.055) SL-Utp-K-Type Natriuretic Peptide 432 pg/mL (0-449) Total Protein 7.4 g/dL (6.4-8.2) Albumin 3.4 g/dL (3.4-5.0) Albumin/Globulin Ratio 0.9 (1.0-1.7) L Thyroid Stimulating Hormone (TSH) 1.433 uIU/mL (0.358-3.74) Free Thyroxine 1.18 ng/dL (0.76-1.46) Laboratory Tests 12/10/18 13:10 Laboratory Tests 12/10/18 13:10 EKG EKG HEART RATE OF 149 BPM, ATRIAL FLUTTER RHYTHM , NO STEMI. Radiology/Procedures Radiology/Procedures [] Course & Med Decision Making Course & Med Decision Making Pertinent Labs and Imaging studies reviewed. (See chart for details) [] Dragon Disclaimer Dragon Disclaimer This electronic medical record was generated, in whole or in part, using a voice recognition dictation system. Departure Departure Impression: Primary Impression: Atrial flutter Disposition: ADMITTED INPATIENT Admitting Physician: Romelia Madrigal Condition: STABLE Referrals: MARGOT RYDER MD (PCP) HAROLDO BARKSDALE DO December 10, 2018 13:05
[2018-12-10] MEDS ORDERED: dilTIAZem IV PUSH 25 MG/5 ML VIAL IVP ONE (13:15)
--- NOTE | 2018-12-10 13:19 | EKG ---
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
[2018-12-10 13:30] LABS: BASO # 0.1 x10^3/uL (0.0-0.2); BASO % 1 % (0-3); EOS # 0.2 x10^3/uL (0.0-0.7); EOS % 2 % (0-3); HEMATOCRIT 39.7 % (39.0-53.0); HEMOGLOBIN 12.3 g/dL (13.0-17.5); LYMPH # 1.3 x10^3/uL (1.0-4.8); LYMPH % 16 % (24-48); MEAN CORPUSCULAR HEMOGLOBIN 28 pg (25-35); MEAN CORPUSCULAR HGB CONC 31 g/dL (31-37); MEAN CORPUSCULAR VOLUME 90 fL (79-100); MONO # 0.6 x10^3/uL (0.0-1.1); MONO % 7 % (0-9); NEUT # 6.2 x10^3uL (1.8-7.7); NEUT % 75 % (31-73); PLATELET COUNT 258 x10^3/uL (140-400); RED BLOOD COUNT 4.41 x10^6/uL (4.30-5.70); RED CELL DISTRIBUTION WIDTH 14.6 % (11.5-14.5); WHITE BLOOD COUNT 8.2 x10^3/uL (4.0-11.0)
[2018-12-10 13:39] LABS: PROTHROMBIN TIME PATIENT 15.3 SEC (11.7-14.0)
[2018-12-10 13:40] LABS: CALCIUM 8.7 mg/dL (8.5-10.1); CREATININE 1.9 mg/dL (0.7-1.3); GFR 41.6; POTASSIUM 3.6 mmol/L (3.5-5.1)
[2018-12-10] MEDS ORDERED: dilTIAZem INJ 125 MG in IV DEXTROSE 5% 100ML 100 ML IV PRN (13:45)
[2018-12-10 13:49] LABS: ALBUMIN 3.4 g/dL (3.4-5.0); ALBUMIN/GLOBULIN RATIO 0.9 (1.0-1.7); MAGNESIUM 1.6 mg/dL (1.8-2.4); TOTAL BILIRUBIN 0.4 mg/dL (0.2-1.0); TOTAL PROTEIN 7.4 g/dL (6.4-8.2)
[2018-12-10 13:52] LABS: FREE T4 1.18 ng/dL (0.76-1.46); THYROID STIM HORMONE (TSH) 1.433 uIU/mL (0.358-3.74)
--- NOTE | 2018-12-10 14:15 | RAD ---
PORTABLE CHEST 1V History: Shortness of breath.. Comparison with January 02, 2018. The heart size remains enlarged. Pacemaker again demonstrated. There is mild increase in infiltrates/edema in both lungs, more pronounced on the left lung base. No evidence of pneumothorax. Small left pleural effusion. IMPRESSION: Worsening of pulmonary edema/infiltrate. Increase in small left pleural effusion. Electronically signed by: Seth Moarles MD (12/10/2018 2:12 PM) [id number]
[2018-12-10 15:00] VITALS: BP 131/63
--- NOTE | 2018-12-10 15:10 | NUR ---
Patient arrived to room 262 via bed from ER at 1510. Patient's niece/DPOA at bedside. Patient A&OX3 but forgetful at times. No complaints of pain. The patient, LEO RESENDIZ, 78 y/o, M admitted by ZAMZAM GARCIA III, DO, was given written information regarding hospital policies, unit procedures and contact persons. Valuables were checked and noted. Will continue to monitor.
--- NOTE | 2018-12-10 15:19 | PDOC2 ---
RONY SHEIKH DECATING MACHINE OPERATOR 12/10/18 1519: CARDIAC CONSULT DATE OF CONSULT Date of Consult DATE: 12/10/18 TIME: 15:10 REASON FOR CONSULT Reason for Consult: Atrial flutter with RVR REFERRING PHYSICIAN Referring Physician: Dr. Peterson SOURCE Source: Chart review, Patient HISTORY OF PRESENT ILLNESS HISTORY OF PRESENT ILLNESS This is a 78 yo male, with a history of PAFIB. SSS s/p PPM, hypertension, and diabetes, who presented secondary to tachycardia. Patient presented to PCP office for regular visit. Routine vitals noted elevated heart rate and patient was referred to the ED for further evaluation and treatment. Initial EKG with a- flutter with RVR. Cardizem bolus was administered. Denies any palpitations or shortness of breath. Patient reports chronic intermittent dizziness. Was not dizzy today. Has been experiencing shortness of breath with minimal exertion. Has been worse in the last few months. Further ischemic workup was discussed during last office visit, by patient deferred. Denies any LE edema, orthopnea, or PND. No recent illness/fevers. Reports compliance with medications. Patient remains in a-flutter with controlled rate. PAST MEDICAL HISTORY Cardiovascular: AFIB, CHF, HTN, Hyperlipidemia, Other (SSS) Pulmonary: COPD CENTRAL NERVOUS SYSTEM: Other (no pertinent hx) GI: No pertinent hx Heme/Onc: No pertinent hx Hepatobiliary: No pertinent hx Psych: No pertinent hx Musculoskeletal: Osteoarthritis Rheumatologic: No pertinent hx Infectious disease: No pertinent hx ENT: No pertinent hx Renal/: Chronic renal insuff Endocrine: Diabetes Dermatology: No pertinent hx PAST SURGICAL HISTORY Past Surgical History: Pacemaker FAMILY HISTORY Family History: Coronary Artery Disease (father CABG), Diabetes, High Peggy strol, Hypertension, Stroke (mother ) SOCIAL HISTORY Smoke: <1 pack per day ALCOHOL: none Drugs: None Lives: Alone CURRENT MEDICATIONS CURRENT MEDICATIONS Current Medications Medications (Trade) Dose Ordered Sig/Michael Route PRN Reason Start Time Stop Time Status Last Admin Dose Admin Diltiazem HCl (Cardizem Iv Push) 20 mg 1X ONCE IVP 12/10/18 13:15 12/10/18 13:16 DC 12/10/18 13:23 ALLERGIES ALLERGIES: Coded Allergies: No Known Drug Allergies (Unverified , 11/30/13) ROS Review of System 14 point ROS conducted with pertinent positives noted above in HPI. PHYSICAL EXAM General: Alert, Oriented X3, Cooperative, No acute distress HEENT: Atraumatic, Mucous membr. moist/pink Lungs: Clear to auscultation, Normal air movement Heart: No murmurs, Other (IRRR; tele AFIB. rate near 80) Abdomen: Soft, No tenderness Extremities: No edema, Normal pulses Skin: No breakdown, No significant lesion Neuro: Normal speech, Sensation intact Psych/Mental Status: Mental status NL, Mood NL MUSCULOSKELETAL: Osteoarthritic changes both hands VITALS VITALS Vital Signs Date Time Temp Pulse Resp B/P (MAP) Pulse Ox O2 Delivery O2 Flow Rate FiO2 12/10/18 14:48 82 24 99/58 (72) 96 Room Air 12/10/18 13:00 98.8 98.8 LABS Lab: Laboratory Tests Test 12/10/18 13:10 White Blood Count 8.2 x10^3/uL (4.0-11.0) Red Blood Count 4.41 x10^6/uL (4.30-5.70) Hemoglobin 12.3 g/dL (13.0-17.5) Hematocrit 39.7 % (39.0-53.0) Mean Corpuscular Volume 90 fL (79-100) Mean Corpuscular Hemoglobin 28 pg (25-35) Mean Corpuscular Hemoglobin Concent 31 g/dL (31-37) Red Cell Distribution Width 14.6 % (11.5-14.5) Platelet Count 258 x10^3/uL (140-400) Neutrophils (%) (Auto) 75 % (31-73) Lymphocytes (%) (Auto) 16 % (24-48) Monocytes (%) (Auto) 7 % (0-9) Eosinophils (%) (Auto) 2 % (0-3) Basophils (%) (Auto) 1 % (0-3) Neutrophils # (Auto) 6.2 x10^3uL (1.8-7.7) Lymphocytes # (Auto) 1.3 x10^3/uL (1.0-4.8) Monocytes # (Auto) 0.6 x10^3/uL (0.0-1.1) Eosinophils # (Auto) 0.2 x10^3/uL (0.0-0.7) Basophils # (Auto) 0.1 x10^3/uL (0.0-0.2) Prothrombin Time 15.3 SEC (11.7-14.0) Prothromb Time International Ratio 1.2 (0.8-1.1) Activated Partial Thromboplast Time 32 SEC (24-38) Sodium Level 141 mmol/L (136-145) Potassium Level 3.6 mmol/L (3.5-5.1) Chloride Level 102 mmol/L (98-107) Carbon Dioxide Level 26 mmol/L (21-32) Anion Gap 13 (6-14) Blood Urea Nitrogen 22 mg/dL (8-26) Creatinine 1.9 mg/dL (0.7-1.3) Estimated GFR (Cockcroft-Gault) 41.6 BUN/Creatinine Ratio 12 (6-20) Glucose Level 258 mg/dL (70-99) Calcium Level 8.7 mg/dL (8.5-10.1) Magnesium Level 1.6 mg/dL (1.8-2.4) Total Bilirubin 0.4 mg/dL (0.2-1.0) Aspartate Amino Transf (AST/SGOT) 15 U/L (15-37) Alanine Aminotransferase (ALT/SGPT) 17 U/L (16-63) Alkaline Phosphatase 93 U/L (46-116) Creatine Kinase 201 U/L (39-308) Creatine Kinase MB (Mass) 1.4 ng/mL (0.0-3.6) Creatine Kinase MB Relative Index 0.7 % (0-4) Troponin I Quantitative < 0.017 ng/mL (0.000-0.055) EU-Has-W-Type Natriuretic Peptide 432 pg/mL (0-449) Total Protein 7.4 g/dL (6.4-8.2) Albumin 3.4 g/dL (3.4-5.0) Albumin/Globulin Ratio 0.9 (1.0-1.7) Thyroid Stimulating Hormone (TSH) 1.433 uIU/mL (0.358-3.74) Free Thyroxine 1.18 ng/dL (0.76-1.46) ECHOCARDIOGRAM ECHOCARDIOGRAM <Conclusion> The left ventricular systolic function is normal. The Ejection Fraction is 55-60%. There is normal LV segmental wall motion. Transmitral Doppler flow pattern is Grade I-abnormal relaxation pattern. A pacemaker is seen in the right atrium consistent with history. Trace to mild tricuspid regurgitation. Moderate-severe pulmonary hypertension. The PA pressure was estimated at 68 mmHg. There is no evidence of significant pericardial effusion. DATE: 06/30/18 1026 STRESS TEST STRESS TEST Conclusion 1. No evidence of EKG changes with stress testing. 2. Normal perfusion at stress/rest. 3. Low risk study. 4. EF > 60%. DATE: 01/01/18 1102 ASSESSMENT/PLAN ASSESSMENT/PLAN 1. PAFIB/a-flutter with RVR; rate controlled following Cardizem bolus. Remains in atrial flutter 2. Chronic diastolic HF; appears compensated 3. SSS s/p PPM (Biotronik) 4. Hypertension; controlled 5. Hyperlipidemia; statin 6. Diabetes, II 7. Hypomagnesemia 8. 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 Tobaccoism; discussed/encouraged cessation Recommendations Biotronik to interrogate device Increase BB for rate control TSH Resume Eliquis for stroke prophylaxis NPO m MN. Possible CV in AM. Discussed further outpatient ischemic evaluation given risk factors and GODDARD. Patient would like to discuss further with NEGRO Wall MD 12/10/18 2266: CARDIAC CONSULT ASSESSMENT/PLAN ASSESSMENT/PLAN Patient seen and examined. He is well-known to me. In the office we discussed possibility of a right left heart catheterization due to his dyspnea but he has not given us a final decision. Continue optimization of his heart rate. If he still in atrial fibrillation tomorrow we'll plan for cardioversion and depending on his symptoms on outpatient basis could consider a right left heart catheterization at that time in 4 weeks RONY SHEIKH APRN December 10, 2018 15:19 NEGRO KILPATRICK MD December 10, 2018 17:46
[2018-12-10] MEDS ORDERED: APIX5TAB PO (15:52)
[2018-12-10] MEDS ORDERED: LISI1TAB5 PO (15:52)
[2018-12-10] MEDS ORDERED: ATOR10TA60 PO (15:52)
[2018-12-10] MEDS ORDERED: METO50TA6 PO (15:52)
[2018-12-10] MEDS ORDERED: MAGN64TA6 PO (15:52)
[2018-12-10] MEDS ORDERED: 0.9 % SODIUM CHLORIDE 10 ML DISP.SYRIN. IV PRN (16:30)
[2018-12-10] MEDS ORDERED: ANTI-COAG MONITOR BY PHARMACY. MC PRN (16:45)
[2018-12-10] MEDS ORDERED: MAGNESIUM SULFATE 2GM 50 ML IV ONE (17:00)
--- NOTE | 2018-12-10 19:33 | PDOC1 ---
History and Physical Date of Admission: Date of Admission DATE: 12/10/18 TIME: 19:30 Chief Complaint: Problems: (1) Syncope (2) Atrial fibrillation (3) Atrial flutter (4) FH: stroke (5) FH: cardiovascular disease (6) FH: coronary artery bypass surgery Chief Complain: Tachycardia History of Present Illness: HPI: Patient is a pleasant middle-aged male with an extensive cardiac history presented to his nicky-care doctor's office for evaluation was noted to have tachycardia He was told to go to the ER We got our emergency room we noted that he had A. fib and flutter with rapid ventricular response He was given some Cardizem that seems to have helped I discussed the case with ER physician Luc admit the patient and consult cardiology Cardiology saw him this evening and plans to do further cardiac evaluation over the next couple of days She be noted the patient discussed describes his pain as agonizing He has associated shortness of breath This has been occurring off and on for months and he has actually deferred further cardiac evaluation He rates it 7 out of 10 Past Medical/Surgical History: PMH/PSH: PAST MEDICAL HISTORY Cardiovascular: AFIB, CHF, HTN, Hyperlipidemia, Other (SSS) Pulmonary: COPD CENTRAL NERVOUS SYSTEM: Other (no pertinent hx) GI: No pertinent hx Heme/Onc: No pertinent hx Hepatobiliary: No pertinent hx Psych: No pertinent hx Musculoskeletal: Osteoarthritis Rheumatologic: No pertinent hx Infectious disease: No pertinent hx ENT: No pertinent hx Renal/: Chronic renal insuff Endocrine: Diabetes Dermatology: No pertinent hx PAST SURGICAL HISTORY Past Surgical History: Pacemaker Allergies: Allergies: Coded Allergies: No Known Drug Allergies (Unverified , 11/30/13) Family History: Family History: Strokes Social History: Social Hisoty: He does not drink smoke or take the Current Medications: Current Medications Current Medications Diltiazem HCl (Cardizem Iv Push) 20 mg 1X ONCE IVP Last administered on 12/10/18at 13:23; Start 12/10/18 at 13:15; Stop 12/10/18 at 13:16; Status DC Diltiazem HCl 125 mg/Dextrose 125 ml @ 5 mls/hr CONT PRN IV SEE I/O RECORD; Start 12/10/18 at 13:45 Apixaban (Eliquis) 5 mg BID PO ; Start 12/10/18 at 21:00 Atorvastatin Calcium (Lipitor) 10 mg HS PO ; Start 12/10/18 at 21:00 Non-Formulary Medication (Lisinopril/ Hydrochlorothiazide (Lisinopril-Hctz 20- 12.5 Mg Tab)) 1 tab DAILY PO ; Start 12/11/18 at 09:00; Status UNV Magnesium Chloride (Mag Delay) 64 mg DAILY PO ; Start 12/11/18 at 09:00 Lisinopril (Prinivil) 20 mg DAILY PO ; Start 12/11/18 at 09:00 Hydrochlorothiazide (Microzide) 12.5 mg DAILY PO ; Start 12/11/18 at 09:00 Info (Anti-Coagulation Monitoring By Pharmacy) 1 each PRN DAILY PRN MC SEE COMMENTS; Start 12/10/18 at 16:45 Magnesium Sulfate 50 ml @ 25 mls/hr 1X ONCE IV Last administered on 12/10/18at 17:03; Start 12/10/18 at 17:00; Stop 12/10/18 at 18:59; Status DC Metoprolol Tartrate (Lopressor) 100 mg BID PO ; Start 12/10/18 at 21:00 Sodium Chloride (Normal Saline Flush) 10 ml QSHIFT PRN IV AFTER MEDS AND BLOOD DRAWS; Start 12/10/18 at 16:30 Active Scripts Active Reported Lisinopril-Hctz 20-12.5 Mg Tab (Lisinopril/Hydrochlorothiazide) 1 Each Tablet 1 Tab PO DAILY Metoprolol Tartrate 50 Mg Tablet 50 Mg PO BID Mag64 (Magnesium Chloride) 64 Mg Tablet.er 64 Mg PO DAILY Eliquis (Apixaban) 5 Mg Tablet 5 Mg PO BID Atorvastatin Calcium 10 Mg Tablet 10 Mg PO HS [BP Med] DAILY Metformin Hcl 500 Mg Tablet 500 Mg PO BIDWMEALS ROS: Review of Systems Review of System REVIEW OF SYSTEMS: GENERAL: Denies weakness SKIN: No bruising, hair changes or rashes. EYES: No blurred, double or loss of vision. NOSE AND THROAT: No history of nosebleeds, hoarseness or sore throat. HEART: Complains of palpitations and tachycardia LUNGS: Complains of shortness of breath. GASTROINTESTINAL: Denies changes in appetite, nausea, vomiting, diarrhea or constipation. GENITOURINARY: No history of frequency, urgency, hesitancy or nocturia. NEUROLOGIC: Denies history of numbness, tingling, tremor or weakness. PSYCHIATRIC: No history of panic, anxiety or depression. ENDOCRINE: No history of heat or cold intolerance, polyuria or polydipsia. EXTREMITIES: Denies muscle weakness, joint pain, pain on walking or stiffness. Physical Exam: Vital Signs: Vital Signs Date Time Temp Pulse Resp B/P (MAP) Pulse Ox O2 Delivery O2 Flow Rate FiO2 12/10/18 15:15 Room Air 12/10/18 15:00 98.3 90 18 131/63 (85) 98 98.3 Physcial Exam: GEN.: No apparent distress. Alert and oriented. HEENT: Head is normocephalic, atraumatic NECK: Supple, no JVD LUNGS: Clear to auscultation without rhonchi or wheezing HEART: He has a flutter on the monitor but his rate is well controlled 78 bpm with intermittent pacing ABDOMEN: Soft, nontender. Positive bowel sounds no organomegaly EXTREMITIES: Without any cyanosis, clubbing, or edema. Pedal pulses intact NEUROLOGIC: Normal speech, normal tone. A&O x 3 PSYCHIATRIC: Normal affect, normal mood. Stable SKIN: No ulcerations or rashes VASCULAR: Good capillary refill Labs: Labs: Laboratory Tests Test 12/10/18 13:10 12/10/18 16:33 White Blood Count 8.2 x10^3/uL (4.0-11.0) Red Blood Count 4.41 x10^6/uL (4.30-5.70) Hemoglobin 12.3 g/dL (13.0-17.5) Hematocrit 39.7 % (39.0-53.0) Mean Corpuscular Volume 90 fL (79-100) Mean Corpuscular Hemoglobin 28 pg (25-35) Mean Corpuscular Hemoglobin Concent 31 g/dL (31-37) Red Cell Distribution Width 14.6 % (11.5-14.5) Platelet Count 258 x10^3/uL (140-400) Neutrophils (%) (Auto) 75 % (31-73) Lymphocytes (%) (Auto) 16 % (24-48) Monocytes (%) (Auto) 7 % (0-9) Eosinophils (%) (Auto) 2 % (0-3) Basophils (%) (Auto) 1 % (0-3) Neutrophils # (Auto) 6.2 x10^3uL (1.8-7.7) Lymphocytes # (Auto) 1.3 x10^3/uL (1.0-4.8) Monocytes # (Auto) 0.6 x10^3/uL (0.0-1.1) Eosinophils # (Auto) 0.2 x10^3/uL (0.0-0.7) Basophils # (Auto) 0.1 x10^3/uL (0.0-0.2) Prothrombin Time 15.3 SEC (11.7-14.0) Prothromb Time International Ratio 1.2 (0.8-1.1) Activated Partial Thromboplast Time 32 SEC (24-38) Sodium Level 141 mmol/L (136-145) Potassium Level 3.6 mmol/L (3.5-5.1) Chloride Level 102 mmol/L (98-107) Carbon Dioxide Level 26 mmol/L (21-32) Anion Gap 13 (6-14) Blood Urea Nitrogen 22 mg/dL (8-26) Creatinine 1.9 mg/dL (0.7-1.3) Estimated GFR (Cockcroft-Gault) 41.6 BUN/Creatinine Ratio 12 (6-20) Glucose Level 258 mg/dL (70-99) Calcium Level 8.7 mg/dL (8.5-10.1) Magnesium Level 1.6 mg/dL (1.8-2.4) Total Bilirubin 0.4 mg/dL (0.2-1.0) Aspartate Amino Transf (AST/SGOT) 15 U/L (15-37) Alanine Aminotransferase (ALT/SGPT) 17 U/L (16-63) Alkaline Phosphatase 93 U/L (46-116) Creatine Kinase 201 U/L (39-308) Creatine Kinase MB (Mass) 1.4 ng/mL (0.0-3.6) Creatine Kinase MB Relative Index 0.7 % (0-4) Troponin I Quantitative < 0.017 ng/mL (0.000-0.055) VM-Zsg-S-Type Natriuretic Peptide 432 pg/mL (0-449) Total Protein 7.4 g/dL (6.4-8.2) Albumin 3.4 g/dL (3.4-5.0) Albumin/Globulin Ratio 0.9 (1.0-1.7) Thyroid Stimulating Hormone (TSH) 1.433 uIU/mL (0.358-3.74) Free Thyroxine 1.18 ng/dL (0.76-1.46) Glucose (Fingerstick) 95 mg/dL (70-99) Laboratory Tests Test 12/10/18 13:10 12/10/18 16:33 White Blood Count 8.2 x10^3/uL (4.0-11.0) Red Blood Count 4.41 x10^6/uL (4.30-5.70) Hemoglobin 12.3 g/dL (13.0-17.5) Hematocrit 39.7 % (39.0-53.0) Mean Corpuscular Volume 90 fL (79-100) Mean Corpuscular Hemoglobin 28 pg (25-35) Mean Corpuscular Hemoglobin Concent 31 g/dL (31-37) Red Cell Distribution Width 14.6 % (11.5-14.5) Platelet Count 258 x10^3/uL (140-400) Neutrophils (%) (Auto) 75 % (31-73) Lymphocytes (%) (Auto) 16 % (24-48) Monocytes (%) (Auto) 7 % (0-9) Eosinophils (%) (Auto) 2 % (0-3) Basophils (%) (Auto) 1 % (0-3) Neutrophils # (Auto) 6.2 x10^3uL (1.8-7.7) Lymphocytes # (Auto) 1.3 x10^3/uL (1.0-4.8) Monocytes # (Auto) 0.6 x10^3/uL (0.0-1.1) Eosinophils # (Auto) 0.2 x10^3/uL (0.0-0.7) Basophils # (Auto) 0.1 x10^3/uL (0.0-0.2) Prothrombin Time 15.3 SEC (11.7-14.0) Prothromb Time International Ratio 1.2 (0.8-1.1) Activated Partial Thromboplast Time 32 SEC (24-38) Sodium Level 141 mmol/L (136-145) Potassium Level 3.6 mmol/L (3.5-5.1) Chloride Level 102 mmol/L (98-107) Carbon Dioxide Level 26 mmol/L (21-32) Anion Gap 13 (6-14) Blood Urea Nitrogen 22 mg/dL (8-26) Creatinine 1.9 mg/dL (0.7-1.3) Estimated GFR (Cockcroft-Gault) 41.6 BUN/Creatinine Ratio 12 (6-20) Glucose Level 258 mg/dL (70-99) Calcium Level 8.7 mg/dL (8.5-10.1) Magnesium Level 1.6 mg/dL (1.8-2.4) Total Bilirubin 0.4 mg/dL (0.2-1.0) Aspartate Amino Transf (AST/SGOT) 15 U/L (15-37) Alanine Aminotransferase (ALT/SGPT) 17 U/L (16-63) Alkaline Phosphatase 93 U/L (46-116) Creatine Kinase 201 U/L (39-308) Creatine Kinase MB (Mass) 1.4 ng/mL (0.0-3.6) Creatine Kinase MB Relative Index 0.7 % (0-4) Troponin I Quantitative < 0.017 ng/mL (0.000-0.055) KW-Rjm-Y-Type Natriuretic Peptide 432 pg/mL (0-449) Total Protein 7.4 g/dL (6.4-8.2) Albumin 3.4 g/dL (3.4-5.0) Albumin/Globulin Ratio 0.9 (1.0-1.7) Thyroid Stimulating Hormone (TSH) 1.433 uIU/mL (0.358-3.74) Free Thyroxine 1.18 ng/dL (0.76-1.46) Glucose (Fingerstick) 95 mg/dL (70-99) Images: Images Chest x-rays negative Assessment/Plan Assessment/Plan A. fib flutter with RVR Plan We gave a bolus of Cardizem for now that seems to help We consult cardiology they saw the patient and are planning further cardiac evaluation starting tomorrow morning DVT prophylaxis Full code Serial enzymes Serial EKGs Home meds ZAMZAM GARCIA III DO December 10, 2018 19:33
[2018-12-10 19:40] VITALS: BP 118/44
[2018-12-10] MEDS ORDERED: ATORVASTATIN CALCIUM 10 MG TABLET. PO SCH (21:00)
[2018-12-10] MEDS: APIXABAN 5 MG TABLET. PO SCH (21:15)
[2018-12-10] MEDS: METOPROLOL TART IMMED RELEASE 50 MG TABLET. PO SCH (21:15)
[2018-12-10] MEDS ORDERED: diphenhydrAMINE HCL 25 MG CAPSULE PO PRN (21:45)
[2018-12-10 23:44] VITALS: BP 109/61
[2018-12-11 03:20] VITALS: BP 106/43
[2018-12-11 04:02] LABS: CHOLESTEROL/HDL RATIO 2.2
[2018-12-11 07:33] VITALS: BP 138/63
--- NOTE | 2018-12-11 07:33 | EKG ---
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
[2018-12-11] MEDS: APIXABAN 5 MG TABLET. PO SCH (08:28)
[2018-12-11] MEDS: METOPROLOL TART IMMED RELEASE 50 MG TABLET. PO SCH (08:29)
[2018-12-11] MEDS ORDERED: hydroCHLOROthiazide 12.5 MG CAPSULE PO SCH (09:00)
[2018-12-11] MEDS ORDERED: LISINOPRIL 20 MG TABLET PO SCH (09:00)
[2018-12-11] MEDS ORDERED: MAGNESIUM CHLORIDE ER 64 MG TABLET.ER PO SCH (09:00)
[2018-12-11] MEDS ORDERED: NON FORMULARY ITEM (Lisinopril/Hydrochlorothiazide (Lisinopril-Hctz 20-12.5 Mg Tab) 1 TAB) PO SCH (09:00)
--- NOTE | 2018-12-11 09:33 | PDOC ---
PROGRESS NOTES History of Present Illness History of Present Illness Assessment/Plan IMPRESSION: Worsening of pulmonary edema/infiltrate. Increase in small left pleural effusion. A. fib flutter with RVR Plan Biotronik to interrogate device BB for rate control TSH Eliquis for stroke prophylaxis Possible CV today. iv Cardizem consult cardiology DVT prophylaxis Full code Serial enzymes Serial EKGs Home meds 43 min pt exam, chart review, > 50% of time spent with exam, chart review, pt care coordination Vitals Vitals Vital Signs Date Time Temp Pulse Resp B/P (MAP) Pulse Ox O2 Delivery O2 Flow Rate FiO2 12/11/18 08:29 71 150/66 12/11/18 07:33 98.3 18 96 Room Air 98.3 Physical Exam General: Alert, Oriented X3, Cooperative, No acute distress Heart: No murmurs, Other (IRRR; tele AFIB. rate near 80) Lungs: Clear Abdomen: Soft, No tenderness Extremities: No edema, Normal pulses Skin: No breakdown, No significant lesion Labs LABS PORTABLE CHEST 1V History: Shortness of breath.. Comparison with January 02, 2018. The heart size remains enlarged. Pacemaker again demonstrated. There is mild increase in infiltrates/edema in both lungs, more pronounced on the left lung base. No evidence of pneumothorax. Small left pleural effusion. IMPRESSION: Worsening of pulmonary edema/infiltrate. Increase in small left pleural effusion. Electronically signed by: Seth Morales MD (12/10/2018 2:12 PM) [facility] Laboratory Tests Test 12/10/18 13:10 12/10/18 16:33 12/10/18 20:51 12/11/18 03:30 White Blood Count 8.2 x10^3/uL (4.0-11.0) Red Blood Count 4.41 x10^6/uL (4.30-5.70) Hemoglobin 12.3 g/dL (13.0-17.5) Hematocrit 39.7 % (39.0-53.0) Mean Corpuscular Volume 90 fL (79-100) Mean Corpuscular Hemoglobin 28 pg (25-35) Mean Corpuscular Hemoglobin Concent 31 g/dL (31-37) Red Cell Distribution Width 14.6 % (11.5-14.5) Platelet Count 258 x10^3/uL (140-400) Neutrophils (%) (Auto) 75 % (31-73) Lymphocytes (%) (Auto) 16 % (24-48) Monocytes (%) (Auto) 7 % (0-9) Eosinophils (%) (Auto) 2 % (0-3) Basophils (%) (Auto) 1 % (0-3) Neutrophils # (Auto) 6.2 x10^3uL (1.8-7.7) Lymphocytes # (Auto) 1.3 x10^3/uL (1.0-4.8) Monocytes # (Auto) 0.6 x10^3/uL (0.0-1.1) Eosinophils # (Auto) 0.2 x10^3/uL (0.0-0.7) Basophils # (Auto) 0.1 x10^3/uL (0.0-0.2) Prothrombin Time 15.3 SEC (11.7-14.0) Prothromb Time International Ratio 1.2 (0.8-1.1) Activated Partial Thromboplast Time 32 SEC (24-38) Sodium Level 141 mmol/L (136-145) Potassium Level 3.6 mmol/L (3.5-5.1) Chloride Level 102 mmol/L (98-107) Carbon Dioxide Level 26 mmol/L (21-32) Anion Gap 13 (6-14) Blood Urea Nitrogen 22 mg/dL (8-26) Creatinine 1.9 mg/dL (0.7-1.3) Estimated GFR (Cockcroft-Gault) 41.6 BUN/Creatinine Ratio 12 (6-20) Glucose Level 258 mg/dL (70-99) Calcium Level 8.7 mg/dL (8.5-10.1) Magnesium Level 1.6 mg/dL (1.8-2.4) Total Bilirubin 0.4 mg/dL (0.2-1.0) Aspartate Amino Transf (AST/SGOT) 15 U/L (15-37) Alanine Aminotransferase (ALT/SGPT) 17 U/L (16-63) Alkaline Phosphatase 93 U/L (46-116) Creatine Kinase 201 U/L (39-308) Creatine Kinase MB (Mass) 1.4 ng/mL (0.0-3.6) Creatine Kinase MB Relative Index 0.7 % (0-4) Troponin I Quantitative < 0.017 ng/mL (0.000-0.055) SV-Ekc-O-Type Natriuretic Peptide 432 pg/mL (0-449) Total Protein 7.4 g/dL (6.4-8.2) Albumin 3.4 g/dL (3.4-5.0) Albumin/Globulin Ratio 0.9 (1.0-1.7) Thyroid Stimulating Hormone (TSH) 1.433 uIU/mL (0.358-3.74) Free Thyroxine 1.18 ng/dL (0.76-1.46) Glucose (Fingerstick) 95 mg/dL (70-99) 175 mg/dL (70-99) Triglycerides Level 45 mg/dL (0-150) Cholesterol Level 92 mg/dL (0-200) LDL Cholesterol, Calculated 41 mg/dL (0-100) VLDL Cholesterol, Calculated 9 mg/dL (0-40) Non-HDL Cholesterol Calculated 50 mg/dL (0-129) HDL Cholesterol 42 mg/dL (40-60) Cholesterol/HDL Ratio 2.2 Test 12/11/18 07:06 Glucose (Fingerstick) 99 mg/dL (70-99) Assessment and Plan Assessmemt and Plan Problems Medical Problems: (1) Atrial flutter Status: Acute Comment Review of Relevant I have reviewed the following items jacquelin (where applicable) has been applied. Labs Laboratory Tests Test 12/10/18 13:10 12/10/18 16:33 12/10/18 20:51 12/11/18 03:30 White Blood Count 8.2 x10^3/uL (4.0-11.0) Red Blood Count 4.41 x10^6/uL (4.30-5.70) Hemoglobin 12.3 g/dL (13.0-17.5) Hematocrit 39.7 % (39.0-53.0) Mean Corpuscular Volume 90 fL (79-100) Mean Corpuscular Hemoglobin 28 pg (25-35) Mean Corpuscular Hemoglobin Concent 31 g/dL (31-37) Red Cell Distribution Width 14.6 % (11.5-14.5) Platelet Count 258 x10^3/uL (140-400) Neutrophils (%) (Auto) 75 % (31-73) Lymphocytes (%) (Auto) 16 % (24-48) Monocytes (%) (Auto) 7 % (0-9) Eosinophils (%) (Auto) 2 % (0-3) Basophils (%) (Auto) 1 % (0-3) Neutrophils # (Auto) 6.2 x10^3uL (1.8-7.7) Lymphocytes # (Auto) 1.3 x10^3/uL (1.0-4.8) Monocytes # (Auto) 0.6 x10^3/uL (0.0-1.1) Eosinophils # (Auto) 0.2 x10^3/uL (0.0-0.7) Basophils # (Auto) 0.1 x10^3/uL (0.0-0.2) Prothrombin Time 15.3 SEC (11.7-14.0) Prothromb Time International Ratio 1.2 (0.8-1.1) Activated Partial Thromboplast Time 32 SEC (24-38) Sodium Level 141 mmol/L (136-145) Potassium Level 3.6 mmol/L (3.5-5.1) Chloride Level 102 mmol/L (98-107) Carbon Dioxide Level 26 mmol/L (21-32) Anion Gap 13 (6-14) Blood Urea Nitrogen 22 mg/dL (8-26) Creatinine 1.9 mg/dL (0.7-1.3) Estimated GFR (Cockcroft-Gault) 41.6 BUN/Creatinine Ratio 12 (6-20) Glucose Level 258 mg/dL (70-99) Calcium Level 8.7 mg/dL (8.5-10.1) Magnesium Level 1.6 mg/dL (1.8-2.4) Total Bilirubin 0.4 mg/dL (0.2-1.0) Aspartate Amino Transf (AST/SGOT) 15 U/L (15-37) Alanine Aminotransferase (ALT/SGPT) 17 U/L (16-63) Alkaline Phosphatase 93 U/L (46-116) Creatine Kinase 201 U/L (39-308) Creatine Kinase MB (Mass) 1.4 ng/mL (0.0-3.6) Creatine Kinase MB Relative Index 0.7 % (0-4) Troponin I Quantitative < 0.017 ng/mL (0.000-0.055) PX-Xwi-F-Type Natriuretic Peptide 432 pg/mL (0-449) Total Protein 7.4 g/dL (6.4-8.2) Albumin 3.4 g/dL (3.4-5.0) Albumin/Globulin Ratio 0.9 (1.0-1.7) Thyroid Stimulating Hormone (TSH) 1.433 uIU/mL (0.358-3.74) Free Thyroxine 1.18 ng/dL (0.76-1.46) Glucose (Fingerstick) 95 mg/dL (70-99) 175 mg/dL (70-99) Triglycerides Level 45 mg/dL (0-150) Cholesterol Level 92 mg/dL (0-200) LDL Cholesterol, Calculated 41 mg/dL (0-100) VLDL Cholesterol, Calculated 9 mg/dL (0-40) Non-HDL Cholesterol Calculated 50 mg/dL (0-129) HDL Cholesterol 42 mg/dL (40-60) Cholesterol/HDL Ratio 2.2 Test 12/11/18 07:06 Glucose (Fingerstick) 99 mg/dL (70-99) Laboratory Tests Test 12/10/18 13:10 12/10/18 16:33 12/10/18 20:51 12/11/18 03:30 White Blood Count 8.2 x10^3/uL (4.0-11.0) Red Blood Count 4.41 x10^6/uL (4.30-5.70) Hemoglobin 12.3 g/dL (13.0-17.5) Hematocrit 39.7 % (39.0-53.0) Mean Corpuscular Volume 90 fL (79-100) Mean Corpuscular Hemoglobin 28 pg (25-35) Mean Corpuscular Hemoglobin Concent 31 g/dL (31-37) Red Cell Distribution Width 14.6 % (11.5-14.5) Platelet Count 258 x10^3/uL (140-400) Neutrophils (%) (Auto) 75 % (31-73) Lymphocytes (%) (Auto) 16 % (24-48) Monocytes (%) (Auto) 7 % (0-9) Eosinophils (%) (Auto) 2 % (0-3) Basophils (%) (Auto) 1 % (0-3) Neutrophils # (Auto) 6.2 x10^3uL (1.8-7.7) Lymphocytes # (Auto) 1.3 x10^3/uL (1.0-4.8) Monocytes # (Auto) 0.6 x10^3/uL (0.0-1.1) Eosinophils # (Auto) 0.2 x10^3/uL (0.0-0.7) Basophils # (Auto) 0.1 x10^3/uL (0.0-0.2) Prothrombin Time 15.3 SEC (11.7-14.0) Prothromb Time International Ratio 1.2 (0.8-1.1) Activated Partial Thromboplast Time 32 SEC (24-38) Sodium Level 141 mmol/L (136-145) Potassium Level 3.6 mmol/L (3.5-5.1) Chloride Level 102 mmol/L (98-107) Carbon Dioxide Level 26 mmol/L (21-32) Anion Gap 13 (6-14) Blood Urea Nitrogen 22 mg/dL (8-26) Creatinine 1.9 mg/dL (0.7-1.3) Estimated GFR (Cockcroft-Gault) 41.6 BUN/Creatinine Ratio 12 (6-20) Glucose Level 258 mg/dL (70-99) Calcium Level 8.7 mg/dL (8.5-10.1) Magnesium Level 1.6 mg/dL (1.8-2.4) Total Bilirubin 0.4 mg/dL (0.2-1.0) Aspartate Amino Transf (AST/SGOT) 15 U/L (15-37) Alanine Aminotransferase (ALT/SGPT) 17 U/L (16-63) Alkaline Phosphatase 93 U/L (46-116) Creatine Kinase 201 U/L (39-308) Creatine Kinase MB (Mass) 1.4 ng/mL (0.0-3.6) Creatine Kinase MB Relative Index 0.7 % (0-4) Troponin I Quantitative < 0.017 ng/mL (0.000-0.055) NG-Dta-B-Type Natriuretic Peptide 432 pg/mL (0-449) Total Protein 7.4 g/dL (6.4-8.2) Albumin 3.4 g/dL (3.4-5.0) Albumin/Globulin Ratio 0.9 (1.0-1.7) Thyroid Stimulating Hormone (TSH) 1.433 uIU/mL (0.358-3.74) Free Thyroxine 1.18 ng/dL (0.76-1.46) Glucose (Fingerstick) 95 mg/dL (70-99) 175 mg/dL (70-99) Triglycerides Level 45 mg/dL (0-150) Cholesterol Level 92 mg/dL (0-200) LDL Cholesterol, Calculated 41 mg/dL (0-100) VLDL Cholesterol, Calculated 9 mg/dL (0-40) Non-HDL Cholesterol Calculated 50 mg/dL (0-129) HDL Cholesterol 42 mg/dL (40-60) Cholesterol/HDL Ratio 2.2 Test 12/11/18 07:06 Glucose (Fingerstick) 99 mg/dL (70-99) Medications Current Medications Diltiazem HCl (Cardizem Iv Push) 20 mg 1X ONCE IVP Last administered on 12/10/18 13:23; Start 12/10/18 at 13:15; Stop 12/10/18 at 13:16; Status DC Diltiazem HCl 125 mg/Dextrose 125 ml @ 5 mls/hr CONT PRN IV SEE I/O RECORD; Start 12/10/18 at 13:45 Apixaban (Eliquis) 5 mg BID PO Last administered on 12/11/18at 08:28; Start 12/10/18 at 21:00 Atorvastatin Calcium (Lipitor) 10 mg HS PO Last administered on 12/10/18at 21:15; Start 12/10/18 at 21:00 Non-Formulary Medication (Lisinopril/ Hydrochlorothiazide (Lisinopril-Hctz 20- 12.5 Mg Tab)) 1 tab DAILY PO ; Start 12/11/18 at 09:00; Status UNV Magnesium Chloride (Mag Delay) 64 mg DAILY PO Last administered on 12/11/18 08:28; Start 12/11/18 at 09:00 Lisinopril (Prinivil) 20 mg DAILY PO Last administered on 12/11/18 08:28; Start 12/11/18 at 09:00 Hydrochlorothiazide (Microzide) 12.5 mg DAILY PO Last administered on 12/11/18 08:28; Start 12/11/18 at 09:00 Info (Anti-Coagulation Monitoring By Pharmacy) 1 each PRN DAILY PRN MC SEE COMMENTS; Start 12/10/18 at 16:45 Magnesium Sulfate 50 ml @ 25 mls/hr 1X ONCE IV Last administered on 12/10/18at 17:03; Start 12/10/18 at 17:00; Stop 12/10/18 at 18:59; Status DC Metoprolol Tartrate (Lopressor) 100 mg BID PO Last administered on 12/11/18at 08:29; Start 12/10/18 at 21:00 Sodium Chloride (Normal Saline Flush) 10 ml QSHIFT PRN IV AFTER MEDS AND BLOOD DRAWS; Start 12/10/18 at 16:30 Diphenhydramine HCl (Benadryl) 25 mg PRN QHS PRN PO INSOMNIA Last administered on 12/10/18at 22:23; Start 12/10/18 at 21:45 Active Scripts Active Reported Lisinopril-Hctz 20-12.5 Mg Tab (Lisinopril/Hydrochlorothiazide) 1 Each Tablet 1 Tab PO DAILY Metoprolol Tartrate 50 Mg Tablet 50 Mg PO BID Mag64 (Magnesium Chloride) 64 Mg Tablet.er 64 Mg PO DAILY Eliquis (Apixaban) 5 Mg Tablet 5 Mg PO BID Atorvastatin Calcium 10 Mg Tablet 10 Mg PO HS [BP Med] DAILY Metformin Hcl 500 Mg Tablet 500 Mg PO BIDWMEALS Vitals/I & O Vital Sign - Last 24 Hours 12/10/18 12/10/18 12/10/18 12/10/18 13:00 13:22 13:23 13:48 Temp 98.8 98.8 Pulse 146 150 152 94 Resp 24 24 B/P (MAP) 125/79 (94) 103/67 (79) 103/67 109/59 (76) Pulse Ox 98 97 95 O2 Delivery Room Air Room Air Room Air 12/10/18 12/10/18 12/10/18 12/10/18 14:18 14:48 15:00 15:15 Temp 98.3 98.3 Pulse 84 82 90 Resp 24 24 18 B/P (MAP) 102/59 (73) 99/58 (72) 131/63 (85) Pulse Ox 96 96 98 O2 Delivery Room Air Room Air Room Air Room Air 12/10/18 12/10/18 12/10/18 12/10/18 19:40 20:00 21:15 23:44 Temp 98.5 98.4 98.5 98.4 Pulse 69 69 89 Resp 19 18 B/P (MAP) 118/44 (68) 118/44 109/61 (77) Pulse Ox 91 95 O2 Delivery Room Air Room Air Room Air 12/11/18 12/11/18 12/11/18 12/11/18 03:20 07:33 08:28 08:29 Temp 98.1 98.3 98.1 98.3 Pulse 73 73 73 71 Resp 18 18 B/P (MAP) 106/43 (64) 138/63 (88) 150/66 150/66 Pulse Ox 98 96 O2 Delivery Room Air Room Air Intake and Output 12/10/18 12/10/18 12/11/18 15:00 23:00 07:00 Intake Total 600 ml Balance 600 ml ABIDA VARGAS MD December 11, 2018 09:33
--- NOTE | 2018-12-11 09:49 | CARD ---
MR#: [id number] Date of Study: 12/11/2018 Ordering Physician: RONY SHEIKH, Referring Physician: ZAMZAM GARCIA Tech: Corrina Eastman MINDY APPROVED REPORT EXAM: Two-dimensional and M-mode echocardiogram with Doppler and color Doppler. Other Information Quality : AverageHR: 84bpm Rhythm : Other INDICATION Arrhythmia 2D DIMENSIONS RVDd3.0 (2.9-3.5cm)Left Atrium(2D)3.8 (1.6-4.0cm) IVSd0.9 (0.7-1.1cm)Aortic Root(2D)2.9 (2.0-3.7cm) LVDd4.6 (3.9-5.9cm)LVOT Diameter2.3 (1.8-2.4cm) PWd0.8 (0.7-1.1cm)LVDs3.6 (2.5-4.0cm) FS (%) 22.9 %SV45.1 ml LVEF(%)46.1 (>50%) M-Mode DIMENSIONS Left Atrium(MM)3.70 (2.5-4.0cm)Aortic Root3.07 (2.2-3.7cm) Aortic Valve AoV Peak Hua.118.7cm/sAoV VTI26.1cm AO Peak GR.5.6mmHgLVOT Peak Hua.82.2cm/s AO Mean GR.3mmHgAVA (VMAX)2.80cm2 NIKOLE (VTI)2.70cm2 Mitral Valve MV E Rrafgttu93.2cm/sMV DECEL JULT543lf MV A Nadprwrs206.5cm/sE/A Ratio0.7 Pulmonary Valve PV Peak Oxdnkgxl969.1cm/s Tricuspid Valve TR P. Bnkkivie650mx/sRAP WSKAVXXS7qhXz TR Peak Gr.31asXrYUGA12jjZd LEFT VENTRICLE The left ventricle is normal size. There is normal left ventricular wall thickness. Left ventricle sy stolic function is low normal. The Ejection Fraction is 50%. Transmitral Doppler flow pattern is Grad e I-abnormal relaxation pattern. RIGHT VENTRICLE The right ventricle is normal size. There is normal right ventricular wall thickness. Systolic functi on is borderline reduced. Pacer lead noted in RV/RA. ATRIA The left atrium size is normal. The right atrium size is normal. The interatrial septum is intact wit h no evidence for an atrial septal defect or patent foramen ovale as noted on 2-D or Doppler imaging. AORTIC VALVE The aortic valve is mildly calcified. The aortic valve is trileaflet. Doppler and Color Flow revealed no significant aortic regurgitation. There is no significant aortic valvular stenosis. There is no a ortic valvular vegetation. MITRAL VALVE Mitral annular calcification is mild. There is no evidence of mitral valve prolapse. There is no mitr al valve stenosis. Doppler and Color Flow revealed no mitral valve regurgitation noted. TRICUSPID VALVE The tricuspid valve is normal in structure and function. Doppler and Color Flow revealed mild tricusp id regurgitation. There is moderate pulmonary hypertension. The PA pressure was estimated at 55 mmHg. There is no tricuspid valve prolapse or vegetation. There is no tricuspid valve stenosis. PULMONIC VALVE The pulmonic valve is not well visualized. GREAT VESSELS The aortic root is normal in size. The ascending aorta is normal in size. The IVC is dilated and taj apses >50% with inspiration. PERICARDIAL EFFUSION There is no evidence of significant pericardial effusion. Critical Notification Critical Value: No <Conclusion> Left ventricle systolic function is low normal. The Ejection Fraction is 50%. Transmitral Doppler flow pattern is Grade I-abnormal relaxation pattern. Pacer lead noted in RV/RA. Mild tricuspid regurgitation. There is moderate pulmonary hypertension. The PA pressure was estimated at 55 mmHg. There is no evidence of significant pericardial effusion. Signed by : Chon Nelson, Electronically Approved : 12/11/2018 09:48:33
[2018-12-11 10:38] VITALS: BP 131/73
--- NOTE | 2018-12-11 12:24 | PDOC ---
CARDIO Progress Notes Date and Time Date of Service 12/11/2018 Time of Evaluation 1200 Subjective Subjective: No Chest Pain, No shortness of breath, No Palpitations Vitals Vitals Vital Signs Date Time Temp Pulse Resp B/P (MAP) Pulse Ox O2 Delivery O2 Flow Rate FiO2 12/11/18 10:38 98.6 64 18 131/73 (92) 94 Room Air 98.6 Weight Weight [ ] Input and Output Intake and Output Intake and Output 12/11/18 07:00 Intake Total 600 ml Balance 600 ml Intake Oral 600 ml # Voids 3 # Bowel Movements 1 Laboratory Labs Laboratory Tests Test 12/10/18 13:10 12/10/18 16:33 12/10/18 20:51 12/11/18 03:30 White Blood Count 8.2 x10^3/uL (4.0-11.0) Red Blood Count 4.41 x10^6/uL (4.30-5.70) Hemoglobin 12.3 g/dL (13.0-17.5) Hematocrit 39.7 % (39.0-53.0) Mean Corpuscular Volume 90 fL (79-100) Mean Corpuscular Hemoglobin 28 pg (25-35) Mean Corpuscular Hemoglobin Concent 31 g/dL (31-37) Red Cell Distribution Width 14.6 % (11.5-14.5) Platelet Count 258 x10^3/uL (140-400) Neutrophils (%) (Auto) 75 % (31-73) Lymphocytes (%) (Auto) 16 % (24-48) Monocytes (%) (Auto) 7 % (0-9) Eosinophils (%) (Auto) 2 % (0-3) Basophils (%) (Auto) 1 % (0-3) Neutrophils # (Auto) 6.2 x10^3uL (1.8-7.7) Lymphocytes # (Auto) 1.3 x10^3/uL (1.0-4.8) Monocytes # (Auto) 0.6 x10^3/uL (0.0-1.1) Eosinophils # (Auto) 0.2 x10^3/uL (0.0-0.7) Basophils # (Auto) 0.1 x10^3/uL (0.0-0.2) Prothrombin Time 15.3 SEC (11.7-14.0) Prothromb Time International Ratio 1.2 (0.8-1.1) Activated Partial Thromboplast Time 32 SEC (24-38) Sodium Level 141 mmol/L (136-145) Potassium Level 3.6 mmol/L (3.5-5.1) Chloride Level 102 mmol/L (98-107) Carbon Dioxide Level 26 mmol/L (21-32) Anion Gap 13 (6-14) Blood Urea Nitrogen 22 mg/dL (8-26) Creatinine 1.9 mg/dL (0.7-1.3) Estimated GFR (Cockcroft-Gault) 41.6 BUN/Creatinine Ratio 12 (6-20) Glucose Level 258 mg/dL (70-99) Calcium Level 8.7 mg/dL (8.5-10.1) Magnesium Level 1.6 mg/dL (1.8-2.4) Total Bilirubin 0.4 mg/dL (0.2-1.0) Aspartate Amino Transf (AST/SGOT) 15 U/L (15-37) Alanine Aminotransferase (ALT/SGPT) 17 U/L (16-63) Alkaline Phosphatase 93 U/L (46-116) Creatine Kinase 201 U/L (39-308) Creatine Kinase MB (Mass) 1.4 ng/mL (0.0-3.6) Creatine Kinase MB Relative Index 0.7 % (0-4) Troponin I Quantitative < 0.017 ng/mL (0.000-0.055) UB-Yis-K-Type Natriuretic Peptide 432 pg/mL (0-449) Total Protein 7.4 g/dL (6.4-8.2) Albumin 3.4 g/dL (3.4-5.0) Albumin/Globulin Ratio 0.9 (1.0-1.7) Thyroid Stimulating Hormone (TSH) 1.433 uIU/mL (0.358-3.74) Free Thyroxine 1.18 ng/dL (0.76-1.46) Glucose (Fingerstick) 95 mg/dL (70-99) 175 mg/dL (70-99) Triglycerides Level 45 mg/dL (0-150) Cholesterol Level 92 mg/dL (0-200) LDL Cholesterol, Calculated 41 mg/dL (0-100) VLDL Cholesterol, Calculated 9 mg/dL (0-40) Non-HDL Cholesterol Calculated 50 mg/dL (0-129) HDL Cholesterol 42 mg/dL (40-60) Cholesterol/HDL Ratio 2.2 Test 12/11/18 07:06 12/11/18 11:31 Glucose (Fingerstick) 99 mg/dL (70-99) 271 mg/dL (70-99) Physical Exam HEENT: Neck Supple W Full Motion Chest: Symmetric LUNGS: Clear to Auscultation Heart: S1S2, RRR (SR with intermittent pacing) Abdomen: Soft N/T Extremities: No Edema, No Calf Tenderness Neurology: alert, oriented, follow commands Assessment Assessment 1. PAFIB/a-flutter with RVR: converted to SR overnight. 2. Chronic diastolic CHF; appears compensated 3. SSS s/p PPM ([employer]), normal function. 22% AFIB burden, DDD-CLS 4. Hypertension; controlled 5. DM2/HLP 6. RAMBO on CKD 7. Tobaccoism; discussed/encouraged cessation Recommendations Continue with current metoprolol dose. Eliquis for stroke prevention. lasix x1. Continue home HCTZ. Continue secondary preventions. Smoking cessation If no recent stress test then would consider as an outpt. Follow up in office in 4 weeks. Anticipate DC this afternoon. ERIC JASSO APRN December 11, 2018 12:24
[2018-12-11] MEDS ORDERED: FUROSEMIDE 40 MG/4 ML VIAL. IVP ONE (12:30)
[2018-12-11 13:32] VITALS: BP 180/72
[2018-12-11 13:34] LABS: CALCIUM 8.6 mg/dL (8.5-10.1); CREATININE 1.8 mg/dL (0.7-1.3); GFR 44.3; POTASSIUM 3.7 mmol/L (3.5-5.1)
[2018-12-11 14:44] VITALS: BP 142/65
[2018-12-11] MEDS ORDERED: METO100T7 PO (15:21)
--- NOTE | 2018-12-11 15:58 | NUR ---
Discharge Note: LEO RESENDIZ [facility] Discharge instructions and discharge home medications reviewed with patient & Family Member and a copy given. All questions have been answered and understanding verbalized. The following instructions and handouts were given: discharge instructions, Atrial fibrillation Discontinued lines and drains: Peripheral IV intact. Patient discharged to Home or Self Care with Family Member via Ambulated with walker at 1555.
--- NOTE | 2018-12-11 16:26 | PDOC3 ---
Discharge Summary Date of Admission: December 10, 2018 Date of Discharge: December 11, 2018 Follow-Up: 3-5 days Admitting Diagnosis comment: discharge dx IMPRESSION: Worsening of pulmonary edema/infiltrate. Increase in small left pleural effusion. A. fib flutter with RVR Plan Biotronik to interrogate device BB for rate control TSH Eliquis for stroke prophylaxis iv lasix x 1 Possible CV cancelled iv Cardizem consult cardiology DVT prophylaxis Full code Serial enzymes Serial EKGs Home meds 43 min pt exam, chart review, > 50% of time spent with exam, chart review, pt care coordination Vitals Vitals Vital Signs Date Time Temp Pulse Resp B/P (MAP) Pulse Ox O2 Delivery O2 Flow Rate FiO2 12/11/18 08:29 71 150/66 12/11/18 07:33 98.3 18 96 Room Air 98.3 Physical Exam General: Alert, Oriented X3, Cooperative, No acute distress Heart: No murmurs, Other (IRRR; tele AFIB. rate near 80) Lungs: Clear Abdomen: Soft, No tenderness Extremities: No edema, Normal pulses Skin: No breakdown, No significant lesion Labs LABS PORTABLE CHEST 1V History: Shortness of breath.. Comparison with January 02, 2018. The heart size remains enlarged. Pacemaker again demonstrated. There is mild increase in infiltrates/edema in both lungs, more pronounced on the left lung base. No evidence of pneumothorax. Small left pleural effusion. IMPRESSION: Worsening of pulmonary edema/infiltrate. Increase in small left pleural effusion. FINAL DIAGNOSIS Problems Medical Problems: (1) Atrial flutter Status: Acute Brief Hospital Course Mr. Devine is a 78 old [sex] who presented with [ a fib rvr] CONDITION AT DISCHARGE: Improved Discharge Medications Current Medications Diltiazem HCl (Cardizem Iv Push) 20 mg 1X ONCE IVP Last administered on 12/10/18at 13:23; Start 12/10/18 at 13:15; Stop 12/10/18 at 13:16; Status DC Diltiazem HCl 125 mg/Dextrose 125 ml @ 5 mls/hr CONT PRN IV SEE I/O RECORD; Start 12/10/18 at 13:45 Apixaban (Eliquis) 5 mg BID PO Last administered on 12/11/18at 08:28; Start 12/10/18 at 21:00 Atorvastatin Calcium (Lipitor) 10 mg HS PO Last administered on 12/10/18at 21:15; Start 12/10/18 at 21:00 Non-Formulary Medication (Lisinopril/ Hydrochlorothiazide (Lisinopril-Hctz 20- 12.5 Mg Tab)) 1 tab DAILY PO ; Start 12/11/18 at 09:00; Status UNV Magnesium Chloride (Mag Delay) 64 mg DAILY PO Last administered on 12/11/18 08:28; Start 12/11/18 at 09:00 Lisinopril (Prinivil) 20 mg DAILY PO Last administered on 12/11/18 08:28; Start 12/11/18 at 09:00 Hydrochlorothiazide (Microzide) 12.5 mg DAILY PO Last administered on 12/11/18 08:28; Start 12/11/18 at 09:00 Info (Anti-Coagulation Monitoring By Pharmacy) 1 each PRN DAILY PRN MC SEE COMMENTS; Start 12/10/18 at 16:45 Magnesium Sulfate 50 ml @ 25 mls/hr 1X ONCE IV Last administered on 12/10/18 17:03; Start 12/10/18 at 17:00; Stop 12/10/18 at 18:59; Status DC Metoprolol Tartrate (Lopressor) 100 mg BID PO Last administered on 12/11/18 08:29; Start 12/10/18 at 21:00 Sodium Chloride (Normal Saline Flush) 10 ml QSHIFT PRN IV AFTER MEDS AND BLOOD DRAWS; Start 12/10/18 at 16:30 Diphenhydramine HCl (Benadryl) 25 mg PRN QHS PRN PO INSOMNIA Last administered on 12/10/18 22:23; Start 12/10/18 at 21:45 Furosemide (Lasix) 40 mg 1X ONCE IVP Last administered on 12/11/18 13:24; Start 12/11/18 at 12:30; Stop 12/11/18 at 12:31; Status DC Active Scripts Active Reported Metoprolol Tartrate 100 Mg Tablet 1 Tab PO BID Lisinopril-Hctz 20-12.5 Mg Tab (Lisinopril/Hydrochlorothiazide) 1 Each Tablet 1 Tab PO DAILY Mag64 (Magnesium Chloride) 64 Mg Tablet.er 64 Mg PO DAILY Eliquis (Apixaban) 5 Mg Tablet 5 Mg PO BID Atorvastatin Calcium 10 Mg Tablet 10 Mg PO HS Metformin Hcl 500 Mg Tablet 500 Mg PO BIDWMEALS Vital Signs Vital Signs Date Time Temp Pulse Resp B/P (MAP) Pulse Ox O2 Delivery O2 Flow Rate FiO2 12/11/18 14:44 142/65 (90) 12/11/18 10:38 98.6 64 18 94 Room Air 98.6 Labs Laboratory Tests Test 12/10/18 13:10 12/10/18 16:33 12/10/18 20:51 12/11/18 03:30 White Blood Count 8.2 x10^3/uL (4.0-11.0) Red Blood Count 4.41 x10^6/uL (4.30-5.70) Hemoglobin 12.3 g/dL (13.0-17.5) Hematocrit 39.7 % (39.0-53.0) Mean Corpuscular Volume 90 fL (79-100) Mean Corpuscular Hemoglobin 28 pg (25-35) Mean Corpuscular Hemoglobin Concent 31 g/dL (31-37) Red Cell Distribution Width 14.6 % (11.5-14.5) Platelet Count 258 x10^3/uL (140-400) Neutrophils (%) (Auto) 75 % (31-73) Lymphocytes (%) (Auto) 16 % (24-48) Monocytes (%) (Auto) 7 % (0-9) Eosinophils (%) (Auto) 2 % (0-3) Basophils (%) (Auto) 1 % (0-3) Neutrophils # (Auto) 6.2 x10^3uL (1.8-7.7) Lymphocytes # (Auto) 1.3 x10^3/uL (1.0-4.8) Monocytes # (Auto) 0.6 x10^3/uL (0.0-1.1) Eosinophils # (Auto) 0.2 x10^3/uL (0.0-0.7) Basophils # (Auto) 0.1 x10^3/uL (0.0-0.2) Prothrombin Time 15.3 SEC (11.7-14.0) Prothromb Time International Ratio 1.2 (0.8-1.1) Activated Partial Thromboplast Time 32 SEC (24-38) Sodium Level 141 mmol/L (136-145) 143 mmol/L (136-145) Potassium Level 3.6 mmol/L (3.5-5.1) 3.7 mmol/L (3.5-5.1) Chloride Level 102 mmol/L (98-107) 105 mmol/L (98-107) Carbon Dioxide Level 26 mmol/L (21-32) 28 mmol/L (21-32) Anion Gap 13 (6-14) 10 (6-14) Blood Urea Nitrogen 22 mg/dL (8-26) 24 mg/dL (8-26) Creatinine 1.9 mg/dL (0.7-1.3) 1.8 mg/dL (0.7-1.3) Estimated GFR (Cockcroft-Gault) 41.6 44.3 BUN/Creatinine Ratio 12 (6-20) Glucose Level 258 mg/dL (70-99) 130 mg/dL (70-99) Calcium Level 8.7 mg/dL (8.5-10.1) 8.6 mg/dL (8.5-10.1) Magnesium Level 1.6 mg/dL (1.8-2.4) 1.8 mg/dL (1.8-2.4) Total Bilirubin 0.4 mg/dL (0.2-1.0) Aspartate Amino Transf (AST/SGOT) 15 U/L (15-37) Alanine Aminotransferase (ALT/SGPT) 17 U/L (16-63) Alkaline Phosphatase 93 U/L (46-116) Creatine Kinase 201 U/L (39-308) Creatine Kinase MB (Mass) 1.4 ng/mL (0.0-3.6) Creatine Kinase MB Relative Index 0.7 % (0-4) Troponin I Quantitative < 0.017 ng/mL (0.000-0.055) EA-Kql-P-Type Natriuretic Peptide 432 pg/mL (0-449) Total Protein 7.4 g/dL (6.4-8.2) Albumin 3.4 g/dL (3.4-5.0) Albumin/Globulin Ratio 0.9 (1.0-1.7) Thyroid Stimulating Hormone (TSH) 1.433 uIU/mL (0.358-3.74) Free Thyroxine 1.18 ng/dL (0.76-1.46) Glucose (Fingerstick) 95 mg/dL (70-99) 175 mg/dL (70-99) Triglycerides Level 45 mg/dL (0-150) Cholesterol Level 92 mg/dL (0-200) LDL Cholesterol, Calculated 41 mg/dL (0-100) VLDL Cholesterol, Calculated 9 mg/dL (0-40) Non-HDL Cholesterol Calculated 50 mg/dL (0-129) HDL Cholesterol 42 mg/dL (40-60) Cholesterol/HDL Ratio 2.2 Test 12/11/18 07:06 12/11/18 11:31 Glucose (Fingerstick) 99 mg/dL (70-99) 271 mg/dL (70-99) Laboratory Tests Test 12/10/18 16:33 12/10/18 20:51 12/11/18 03:30 12/11/18 07:06 Glucose (Fingerstick) 95 mg/dL (70-99) 175 mg/dL (70-99) 99 mg/dL (70-99) Sodium Level 143 mmol/L (136-145) Potassium Level 3.7 mmol/L (3.5-5.1) Chloride Level 105 mmol/L (98-107) Carbon Dioxide Level 28 mmol/L (21-32) Anion Gap 10 (6-14) Blood Urea Nitrogen 24 mg/dL (8-26) Creatinine 1.8 mg/dL (0.7-1.3) Estimated GFR (Cockcroft-Gault) 44.3 Glucose Level 130 mg/dL (70-99) Calcium Level 8.6 mg/dL (8.5-10.1) Magnesium Level 1.8 mg/dL (1.8-2.4) Triglycerides Level 45 mg/dL (0-150) Cholesterol Level 92 mg/dL (0-200) LDL Cholesterol, Calculated 41 mg/dL (0-100) VLDL Cholesterol, Calculated 9 mg/dL (0-40) Non-HDL Cholesterol Calculated 50 mg/dL (0-129) HDL Cholesterol 42 mg/dL (40-60) Cholesterol/HDL Ratio 2.2 Test 12/11/18 11:31 Glucose (Fingerstick) 271 mg/dL (70-99) Allergies Allergies Coded Allergies Type Severity Reaction Last Updated Verified No Known Drug Allergies 11/30/13 No Disposition/Orders: D/C to Home Patient Instructions d/c planning 35 min ABIDA VARGAS MD December 11, 2018 16:26
[2018-12-22] MEDS ORDERED: AMIO200T4 PO (10:46)
[2018-12-22] MEDS ORDERED: Pantoprazole PO (10:46)
== END 2018-12-11 15:55 | disposition home or self-care (01) ==
LOC: ER 12:58 → OBSVTOIN 14:29 → 2 SOUTH 14:29 → INTOOBSV 14:29
PROVIDERS: ADMIT Internal Medicine; ATTEND Internal Medicine
DX: I48.92 Unspecified atrial flutter (principal); N17.9 Acute kidney failure, unspecified; I13.0 Hypertensive heart and chronic kidney disease with heart failure and stage 1 through stage 4 chronic kidney disease, or unspecified chronic kidney disease; I50.32 Chronic diastolic (congestive) heart failure; E11.22 Type 2 diabetes mellitus with diabetic chronic kidney disease; E78.5 Hyperlipidemia, unspecified; E83.42 Hypomagnesemia; F17.210 Nicotine dependence, cigarettes, uncomplicated; I25.10 Atherosclerotic heart disease of native coronary artery without angina pectoris; J44.9 Chronic obstructive pulmonary disease, unspecified; N18.9 Chronic kidney disease, unspecified; Z82.3 Family history of stroke; Z82.49 Family history of ischemic heart disease and other diseases of the circulatory system; Z95.1 Presence of aortocoronary bypass graft; Z83.3 Family history of diabetes mellitus; M19.90 Unspecified osteoarthritis, unspecified site; Z71.6 Tobacco abuse counseling; R00.1 Bradycardia, unspecified
CPT/HCPCS: 36415; 71045; 80048; 80053; 80061; 82550; 82553; 82962; 83735; 83880; 84439; 84443; 84484; 85025; 85610; 85730; 93005; 93306; 96365; 96366; 96375; 99284; 99406; G0378; J1940; J3475; J3490; Q0163; 92960; 96374; G0379; 99285-25

== ENCOUNTER 2018-12-18 09:10 | Inpatient (IN) | payer MEDICARE ==
[~2018-12-18] VITALS: Ht 170.2 cm; Wt 82.4 kg
[~2018-12-18 09:10] MED LIST changes: +APIX5TAB PO; +ATOR10TA60 PO; +LISI1TAB5 PO; +MAGN64TA6 PO; +METO100T7 PO; +METO50TA6 PO
[2018-12-18] MEDS ORDERED: dilTIAZem IV PUSH 25 MG/5 ML VIAL ONE (09:24)
[2018-12-18] MEDS ORDERED: dilTIAZem IV PUSH 25 MG/5 ML VIAL IVP ONE (09:30)
--- NOTE | 2018-12-18 09:52 | PHYS DOC ---
Past Medical History Past Medical History: A-Fib, Diabetes-Type II, Heart Disease, Hypertension Past Surgical History: Pacemaker Alcohol Use: None Drug Use: None Adult General Chief Complaint Chief Complaint: RAPID HEART RATE HPI HPI Patient is a 78 year old male who presents with complaining of heart racing. Patient has history of atrial fibrillation on Coumadin and recent hospitalization with palpitation and was seen by his para educator today because of palpitation started today with increasing of shortness of breath without chest pain. EKG showed atrial flutter with RVR and send to ER for evaluation. Patient complaining of generalized weakness without focal neuro deficit, fever and chills, chest pain, nausea and vomiting. Review of Systems Review of Systems Constitutional: Denies fever or chills [] Eyes: Denies change in visual acuity, redness, or eye pain [] HENT: Denies nasal congestion or sore throat [] Respiratory: Denies cough or shortness of breath [] Cardiovascular: No additional information not addressed in HPI [] GI: Denies abdominal pain, nausea, vomiting, bloody stools or diarrhea [] : Denies dysuria or hematuria [] Musculoskeletal: Denies back pain or joint pain [] Integument: Denies rash or skin lesions [] Neurologic: Denies headache, focal weakness or sensory changes [] Endocrine: Denies polyuria or polydipsia [] All other systems were reviewed and found to be within normal limits, except as documented in this note. Current Medications Current Medications Current Medications Medications (Trade) Dose Ordered Sig/Michael Start Time Stop Time Status Last Admin Dose Admin Diltiazem HCl (Cardizem Iv Push) 25 mg STK-MED ONCE 12/18/18 09:24 12/18/18 09:25 DC Allergies Allergies Allergies Coded Allergies Type Severity Reaction Last Updated Verified No Known Drug Allergies 11/30/13 No Physical Exam Physical Exam Constitutional: Well developed, well nourished, mild distress, non-toxic appearance. [] HENT: Normocephalic, atraumatic, oropharynx moist. Eyes: PERRLA, EOMI, conjunctiva normal, no discharge. [] Neck: Normal range of motion, no tenderness, supple, no stridor. [] Cardiovascular: Irregularly irregular with tachycardia, no murmur [] Lungs & Thorax: Bilateral breath sounds clear to auscultation [] Abdomen: Bowel sounds normal, soft, no tenderness, no masses, no pulsatile masses. [] Skin: Warm, dry, no erythema, no rash. [] Back: No tenderness, no CVA tenderness. [] Extremities: No tenderness, no cyanosis, no clubbing, ROM intact, no edema. [] Neurologic: Alert and oriented X 3, normal motor function, normal sensory function, no focal deficits noted. [] Psychologic: Affect normal, judgement normal, mood normal. [] Current Patient Data Vital Signs Vital Signs Date Time Temp Pulse Resp B/P (MAP) Pulse Ox O2 Delivery O2 Flow Rate FiO2 12/18/18 09:29 149 115/75 12/18/18 09:22 97.8 20 99 Nasal Cannula 2.0 97.8 Lab Values Laboratory Tests Test 12/18/18 09:39 White Blood Count 7.3 x10^3/uL (4.0-11.0) Red Blood Count 4.25 x10^6/uL (4.30-5.70) L Hemoglobin 11.9 g/dL (13.0-17.5) L Hematocrit 37.7 % (39.0-53.0) L Mean Corpuscular Volume 89 fL (79-100) Mean Corpuscular Hemoglobin 28 pg (25-35) Mean Corpuscular Hemoglobin Concent 31 g/dL (31-37) Red Cell Distribution Width 14.6 % (11.5-14.5) H Platelet Count 263 x10^3/uL (140-400) Neutrophils (%) (Auto) 71 % (31-73) Lymphocytes (%) (Auto) 16 % (24-48) L Monocytes (%) (Auto) 10 % (0-9) H Eosinophils (%) (Auto) 2 % (0-3) Basophils (%) (Auto) 1 % (0-3) Neutrophils # (Auto) 5.2 x10^3uL (1.8-7.7) Lymphocytes # (Auto) 1.2 x10^3/uL (1.0-4.8) Monocytes # (Auto) 0.7 x10^3/uL (0.0-1.1) Eosinophils # (Auto) 0.1 x10^3/uL (0.0-0.7) Basophils # (Auto) 0.1 x10^3/uL (0.0-0.2) Prothrombin Time 16.0 SEC (11.7-14.0) H Prothrombin Time INR 1.3 (0.8-1.1) H Sodium Level 142 mmol/L (136-145) Potassium Level 3.9 mmol/L (3.5-5.1) Chloride Level 105 mmol/L (98-107) Carbon Dioxide Level 24 mmol/L (21-32) Anion Gap 13 (6-14) Blood Urea Nitrogen 26 mg/dL (8-26) Creatinine 2.0 mg/dL (0.7-1.3) H Estimated GFR (Cockcroft-Gault) 39.2 BUN/Creatinine Ratio 13 (6-20) Glucose Level 154 mg/dL (70-99) H Calcium Level 9.0 mg/dL (8.5-10.1) Magnesium Level 1.7 mg/dL (1.8-2.4) L Total Bilirubin 0.6 mg/dL (0.2-1.0) Aspartate Amino Transferase (AST) 17 U/L (15-37) Alanine Aminotransferase (ALT) 19 U/L (16-63) Alkaline Phosphatase 78 U/L (46-116) Creatine Kinase 82 U/L (39-308) Troponin I Quantitative < 0.017 ng/mL (0.000-0.055) KX-Mdn-U-Type Natriuretic Peptide 1977 pg/mL (0-449) H Total Protein 7.3 g/dL (6.4-8.2) Albumin 3.3 g/dL (3.4-5.0) L Albumin/Globulin Ratio 0.8 (1.0-1.7) L Laboratory Tests 12/18/18 09:39 Laboratory Tests 12/18/18 09:39 EKG EKG EKG interpreted by me. EKG at 0 922 showed atrial flutter with RVR at rate of 151, normal KS and QT intervals, right atrial enlargement, left foster axis, LVH, no acute ST and T-wave abnormalities. Repeat EKG at 0 944 after Cardizem showed atrial flutter at rate of [address] and T-wave abnormalities. Radiology/Procedures Radiology/Procedures [] [address] [place] [address] IMAGING REPORT Signed PATIENT: LEO RESENDIZ ACCOUNT: [id number] : 1940 LOCATION: [facility] AGE: 78 SEX: M EXAM STATUS: ADM IN ORD. PHYSICIAN: JEREMY GROSSMAN MD REASON: shortness of breath, a.fib with RVR PROCEDURE: PORTABLE CHEST 1V Portable chest, 12/18/2018: HISTORY: Shortness of breath, atrial fibrillation Comparison is made to a study from 12/10/2018. A left-sided transvenous pacemaker remains in place with 2 leads extending into the right heart. The heart is enlarged. The pulmonary vascularity is prominent. There is ongoing left basilar infiltrate which appears to have worsened slightly. No definite pleural fluid is seen. IMPRESSION: 1. Cardiomegaly with mild vascular congestion. 2. Worsening left basilar infiltrate compatible with pneumonia versus pulmonary edema. Electronically signed by: Chace Zavala MD (12/18/2018 10:12 AM) [facility] DICTATED and SIGNED BY: CHACE ZAVALA MD DATE: 12/18/18 1012 Course & Med Decision Making Course & Med Decision Making Pertinent Labs and Imaging studies reviewed. (See chart for details) Evaluation of patient in ER showed 78-year-old male patient sent from his cardiology office because of exacerbation with RVR. Patient had heart rate of 150s in ER and treated with Cardizem bolus decrease of heart rate to 90s with atrial flutter. Cardizem and amiodarone drip was started per recommendation of his para educator. . Patient was chest pain-free in ER.Patient requiring admission for further evaluation and treatment. Discussed with Dr. Figueroa who is in agreement with admission. Discussed findings and plan with patient and family, who acknowledge understanding and agreement. Dragon Disclaimer Dragon Disclaimer This electronic medical record was generated, in whole or in part, using a voice recognition dictation system. Departure Departure Impression: Primary Impression: Atrial flutter with rapid ventricular response Additional Impressions: Shortness of breath Anemia Renal insufficiency Hypomagnesemia CHF (congestive heart failure) Disposition: ADMITTED INPATIENT (at 046) Admitting Physician: Robert Newman (Accepted admission at 0945) Condition: IMPROVED Referrals: MARGOT RYDER MD (PCP) Critical Care Time Critical care time was 55 minutes exclusive of procedures. Problem Qualifiers JEREMY GROSSMAN MD December 18, 2018 09:52
[2018-12-18 09:54] LABS: BASO # 0.1 x10^3/uL (0.0-0.2); BASO % 1 % (0-3); EOS # 0.1 x10^3/uL (0.0-0.7); EOS % 2 % (0-3); HEMATOCRIT 37.7 % (39.0-53.0); HEMOGLOBIN 11.9 g/dL (13.0-17.5); LYMPH # 1.2 x10^3/uL (1.0-4.8); LYMPH % 16 % (24-48); MEAN CORPUSCULAR HEMOGLOBIN 28 pg (25-35); MEAN CORPUSCULAR HGB CONC 31 g/dL (31-37); MEAN CORPUSCULAR VOLUME 89 fL (79-100); MONO # 0.7 x10^3/uL (0.0-1.1); MONO % 10 % (0-9); NEUT # 5.2 x10^3uL (1.8-7.7); NEUT % 71 % (31-73); PLATELET COUNT 263 x10^3/uL (140-400); RED BLOOD COUNT 4.25 x10^6/uL (4.30-5.70); RED CELL DISTRIBUTION WIDTH 14.6 % (11.5-14.5); WHITE BLOOD COUNT 7.3 x10^3/uL (4.0-11.0)
[2018-12-18 10:00] LABS: GFR 39.2; POTASSIUM 3.9 mmol/L (3.5-5.1)
[2018-12-18] MEDS ORDERED: dilTIAZem INJ 125 MG in IV DEXTROSE 5% 100ML 100 ML IV ONE (10:00)
[2018-12-18] MEDS ORDERED: AMIODARONE 900 MG in IV DEXTROSE 5% 500 ML IV ONE (10:00)
[2018-12-18 10:07] LABS: ALBUMIN 3.3 g/dL (3.4-5.0); ALBUMIN/GLOBULIN RATIO 0.8 (1.0-1.7); MAGNESIUM 1.7 mg/dL (1.8-2.4); TOTAL BILIRUBIN 0.6 mg/dL (0.2-1.0); TOTAL PROTEIN 7.3 g/dL (6.4-8.2)
--- NOTE | 2018-12-18 10:16 | RAD ---
Portable chest, 12/18/2018: HISTORY: Shortness of breath, atrial fibrillation Comparison is made to a study from 12/10/2018. A left-sided transvenous pacemaker remains in place with 2 leads extending into the right heart. The heart is enlarged. The pulmonary vascularity is prominent. There is ongoing left basilar infiltrate which appears to have worsened slightly. No definite pleural fluid is seen. IMPRESSION: 1. Cardiomegaly with mild vascular congestion. 2. Worsening left basilar infiltrate compatible with pneumonia versus pulmonary edema. Electronically signed by: Chace Zavala MD (12/18/2018 10:12 AM) [facility]
--- NOTE | 2018-12-18 10:22 | PDOC1 ---
History and Physical Date of Admission Date of Admission DATE: 12/18/18 TIME: 10:22 Identification/Chief Complaint Chief Complaint seen in er , 78 year old male who presents with complaining of heart racing. Patient has history of atrial fibrillation on eliquis and recent hospitalization with palpitations and was seen by his tawer today because of palpitation started today with increasing of shortness of breath without chest pain. EKG showed atrial flutter with RVR and send to ER for evaluation. Patient complaining of generalized weakness without focal neuro deficit, fever and chills, chest pain, nausea and vomiting. Past Medical History Cardiovascular: AFIB, CHF, HTN, Hyperlipidemia, Other Pulmonary: COPD CENTRAL NERVOUS SYSTEM: Other GI: No pertinent hx Heme/Onc: No pertinent hx Hepatobiliary: No pertinent hx Psych: No pertinent hx Musculoskeletal: Osteoarthritis Rheumatologic: No pertinent hx Infectious disease: No pertinent hx Renal/: Chronic renal insuff Endocrine: Diabetes Past Surgical History Past Surgical History: Pacemaker Family History Family History: Coronary Artery Disease, Diabetes, High Cholestrol, Hypertension, Stroke Social History Smoke: No ALCOHOL: none Drugs: None Current Problem List Problem List Problems Medical Problems: (1) Atrial flutter with rapid ventricular response Status: Acute (2) Shortness of breath Status: Acute Current Medications Current Medications Current Medications Diltiazem HCl (Cardizem Iv Push) 20 mg 1X ONCE IVP Last administered on 12/18/18at 09:29; Start 12/18/18 at 09:30; Stop 12/18/18 at 09:31; Status DC Amiodarone HCl 900 mg/Dextrose 518 ml @ 0 mls/hr 1X ONCE IV Last administered on 12/18/18at 10:02; Start 12/18/18 at 10:00; Stop 12/18/18 at 10:01; Status DC Diltiazem HCl 125 mg/Dextrose 125 ml @ 10 mls/hr 1X ONCE IV Last administered on 12/18/18at 09:45; Start 12/18/18 at 10:00; Stop 12/18/18 at 22:29 Diltiazem HCl (Cardizem Iv Push) 25 mg STK-MED ONCE .ROUTE ; Start 12/18/18 at 09:24; Stop 12/18/18 at 09:25; Status DC Active Scripts Active Reported Metoprolol Tartrate 100 Mg Tablet 1 Tab PO BID Lisinopril-Hctz 20-12.5 Mg Tab (Lisinopril/Hydrochlorothiazide) 1 Each Tablet 1 Tab PO DAILY Mag64 (Magnesium Chloride) 64 Mg Tablet.er 64 Mg PO DAILY Eliquis (Apixaban) 5 Mg Tablet 5 Mg PO BID Atorvastatin Calcium 10 Mg Tablet 10 Mg PO HS Metformin Hcl 500 Mg Tablet 500 Mg PO BIDWMEALS Allergies Allergies: Coded Allergies: No Known Drug Allergies (Unverified , 11/30/13) ROS Review of System Review of Systems Review of Systems Constitutional: Denies fever or chills [] Eyes: Denies change in visual acuity, redness, or eye pain [] HENT: Denies nasal congestion or sore throat [] Respiratory: Denies cough or shortness of breath [] Cardiovascular: No additional information not addressed in HPI [] GI: Denies abdominal pain, nausea, vomiting, bloody stools or diarrhea [] : Denies dysuria or hematuria [] Musculoskeletal: Denies back pain or joint pain [] Integument: Denies rash or skin lesions [] Neurologic: Denies headache, focal weakness or sensory changes [] Endocrine: Denies polyuria or polydipsia [] 14 pt systems were reviewed and found to be within normal limits, except as documented Physical Exam Physical Exam Physical Exam Physical Exam Constitutional: Well developed, well nourished, mild distress, non-toxic appearance. [] HENT: Normocephalic, atraumatic, oropharynx moist. Eyes: PERRLA, EOMI, conjunctiva normal, no discharge. [] Neck: Normal range of motion, no tenderness, supple, no stridor. [] Cardiovascular: Irregularly irregular with tachycardia, no murmur [] Lungs & Thorax: Bilateral breath sounds clear to auscultation [] Abdomen: Bowel sounds normal, soft, no tenderness, no masses, no pulsatile masses. [] Skin: Warm, dry, no erythema, no rash. [] Back: No tenderness, no CVA tenderness. [] Extremities: No tenderness, no cyanosis, no clubbing, ROM intact, no edema. [] Neurologic: Alert and oriented X 3, normal motor function, normal sensory function, no focal deficits noted. [] Psychologic: Affect normal, judgement normal, mood normal. [] General: Oriented X3, Cooperative, mild distress HEENT: Atraumatic, Mucous membr. moist/pink Lungs: Normal air movement Heart: irregularly irregular Abdomen: Soft Rectal Exam: not examined Neuro: Normal speech, Cranial nerves 3-12 NL Psych/Mental Status: Mental status NL, Mood NL Vitals Vitals Vital Signs Date Time Temp Pulse Resp B/P (MAP) Pulse Ox O2 Delivery O2 Flow Rate FiO2 12/18/18 09:29 149 115/75 12/18/18 09:22 97.8 20 99 Nasal Cannula 2.0 97.8 Labs Labs Laboratory Tests Test 12/18/18 09:39 White Blood Count 7.3 x10^3/uL (4.0-11.0) Red Blood Count 4.25 x10^6/uL (4.30-5.70) Hemoglobin 11.9 g/dL (13.0-17.5) Hematocrit 37.7 % (39.0-53.0) Mean Corpuscular Volume 89 fL (79-100) Mean Corpuscular Hemoglobin 28 pg (25-35) Mean Corpuscular Hemoglobin Concent 31 g/dL (31-37) Red Cell Distribution Width 14.6 % (11.5-14.5) Platelet Count 263 x10^3/uL (140-400) Neutrophils (%) (Auto) 71 % (31-73) Lymphocytes (%) (Auto) 16 % (24-48) Monocytes (%) (Auto) 10 % (0-9) Eosinophils (%) (Auto) 2 % (0-3) Basophils (%) (Auto) 1 % (0-3) Neutrophils # (Auto) 5.2 x10^3uL (1.8-7.7) Lymphocytes # (Auto) 1.2 x10^3/uL (1.0-4.8) Monocytes # (Auto) 0.7 x10^3/uL (0.0-1.1) Eosinophils # (Auto) 0.1 x10^3/uL (0.0-0.7) Basophils # (Auto) 0.1 x10^3/uL (0.0-0.2) Prothrombin Time 16.0 SEC (11.7-14.0) Prothromb Time International Ratio 1.3 (0.8-1.1) Sodium Level 142 mmol/L (136-145) Potassium Level 3.9 mmol/L (3.5-5.1) Chloride Level 105 mmol/L (98-107) Carbon Dioxide Level 24 mmol/L (21-32) Anion Gap 13 (6-14) Blood Urea Nitrogen 26 mg/dL (8-26) Creatinine 2.0 mg/dL (0.7-1.3) Estimated GFR (Cockcroft-Gault) 39.2 BUN/Creatinine Ratio 13 (6-20) Glucose Level 154 mg/dL (70-99) Calcium Level 9.0 mg/dL (8.5-10.1) Magnesium Level 1.7 mg/dL (1.8-2.4) Total Bilirubin 0.6 mg/dL (0.2-1.0) Aspartate Amino Transf (AST/SGOT) 17 U/L (15-37) Alanine Aminotransferase (ALT/SGPT) 19 U/L (16-63) Alkaline Phosphatase 78 U/L (46-116) Creatine Kinase 82 U/L (39-308) Troponin I Quantitative < 0.017 ng/mL (0.000-0.055) QK-Nef-W-Type Natriuretic Peptide 1977 pg/mL (0-449) Total Protein 7.3 g/dL (6.4-8.2) Albumin 3.3 g/dL (3.4-5.0) Albumin/Globulin Ratio 0.8 (1.0-1.7) Laboratory Tests Test 12/18/18 09:39 White Blood Count 7.3 x10^3/uL (4.0-11.0) Red Blood Count 4.25 x10^6/uL (4.30-5.70) Hemoglobin 11.9 g/dL (13.0-17.5) Hematocrit 37.7 % (39.0-53.0) Mean Corpuscular Volume 89 fL (79-100) Mean Corpuscular Hemoglobin 28 pg (25-35) Mean Corpuscular Hemoglobin Concent 31 g/dL (31-37) Red Cell Distribution Width 14.6 % (11.5-14.5) Platelet Count 263 x10^3/uL (140-400) Neutrophils (%) (Auto) 71 % (31-73) Lymphocytes (%) (Auto) 16 % (24-48) Monocytes (%) (Auto) 10 % (0-9) Eosinophils (%) (Auto) 2 % (0-3) Basophils (%) (Auto) 1 % (0-3) Neutrophils # (Auto) 5.2 x10^3uL (1.8-7.7) Lymphocytes # (Auto) 1.2 x10^3/uL (1.0-4.8) Monocytes # (Auto) 0.7 x10^3/uL (0.0-1.1) Eosinophils # (Auto) 0.1 x10^3/uL (0.0-0.7) Basophils # (Auto) 0.1 x10^3/uL (0.0-0.2) Prothrombin Time 16.0 SEC (11.7-14.0) Prothromb Time International Ratio 1.3 (0.8-1.1) Sodium Level 142 mmol/L (136-145) Potassium Level 3.9 mmol/L (3.5-5.1) Chloride Level 105 mmol/L (98-107) Carbon Dioxide Level 24 mmol/L (21-32) Anion Gap 13 (6-14) Blood Urea Nitrogen 26 mg/dL (8-26) Creatinine 2.0 mg/dL (0.7-1.3) Estimated GFR (Cockcroft-Gault) 39.2 BUN/Creatinine Ratio 13 (6-20) Glucose Level 154 mg/dL (70-99) Calcium Level 9.0 mg/dL (8.5-10.1) Magnesium Level 1.7 mg/dL (1.8-2.4) Total Bilirubin 0.6 mg/dL (0.2-1.0) Aspartate Amino Transf (AST/SGOT) 17 U/L (15-37) Alanine Aminotransferase (ALT/SGPT) 19 U/L (16-63) Alkaline Phosphatase 78 U/L (46-116) Creatine Kinase 82 U/L (39-308) Troponin I Quantitative < 0.017 ng/mL (0.000-0.055) GA-Ppv-B-Type Natriuretic Peptide 1977 pg/mL (0-449) Total Protein 7.3 g/dL (6.4-8.2) Albumin 3.3 g/dL (3.4-5.0) Albumin/Globulin Ratio 0.8 (1.0-1.7) Images Images Pulmonary Valve PV Peak Velocity 108.1cm/s Tricuspid Valve TR P. Velocity 341cm/s RAP ESTIMATE 8mmHg TR Peak Gr. 47mmHg RVSP 55mmHg LEFT VENTRICLE The left ventricle is normal size. There is normal left ventricular wall thickness. Left ventricle systolic function is low normal. The Ejection Fraction is 50%. Transmitral Doppler flow pattern is Grade I-abnormal relaxation pattern. RIGHT VENTRICLE The right ventricle is normal size. There is normal right ventricular wall thickness. Systolic function is borderline reduced. Pacer lead noted in RV/RA. ATRIA The left atrium size is normal. The right atrium size is normal. The interatrial septum is intact with no evidence for an atrial septal defect or patent foramen ovale as noted on 2-D or Doppler imaging. AORTIC VALVE The aortic valve is mildly calcified. The aortic valve is trileaflet. Doppler and Color Flow revealed no significant aortic regurgitation. There is no significant aortic valvular stenosis. There is no aortic valvular vegetation. MITRAL VALVE Mitral annular calcification is mild. There is no evidence of mitral valve prolapse. There is no mitral valve stenosis. Doppler and Color Flow revealed no mitral valve regurgitation noted. TRICUSPID VALVE The tricuspid valve is normal in structure and function. Doppler and Color Flow revealed mild tricuspid regurgitation. There is moderate pulmonary hypertension. The PA pressure was estimated at 55 mmHg. There is no tricuspid valve prolapse or vegetation. There is no tricuspid valve stenosis. PULMONIC VALVE The pulmonic valve is not well visualized. GREAT VESSELS The aortic root is normal in size. The ascending aorta is normal in size. The IVC is dilated and collapses >50% with inspiration. PERICARDIAL EFFUSION There is no evidence of significant pericardial effusion. Critical Notification Critical Value: No <Conclusion> Left ventricle systolic function is low normal. The Ejection Fraction is 50%. Transmitral Doppler flow pattern is Grade I-abnormal relaxation pattern. Pacer lead noted in RV/RA. Mild tricuspid regurgitation. There is moderate pulmonary hypertension. The PA pressure was estimated at 55 mmHg. There is no evidence of significant pericardial effusion. Signed by : Chon Nelson, Electronically Approved : 12/11/2018 09:48:33 Portable chest, 12/18/2018: HISTORY: Shortness of breath, atrial fibrillation Comparison is made to a study from 12/10/2018. A left-sided transvenous pacemaker remains in place with 2 leads extending into the right heart. The heart is enlarged. The pulmonary vascularity is prominent. There is ongoing left basilar infiltrate which appears to have worsened slightly. No definite pleural fluid is seen. IMPRESSION: 1. Cardiomegaly with mild vascular congestion. 2. Worsening left basilar infiltrate compatible with pneumonia versus pulmonary edema. Electronically signed by: Chace Wright MD (12/18/2018 10:12 AM) [facility] DICTATED and SIGNED BY: CHACE WRIGHT MD DATE: 12/18/18 1012 VTE Prophylaxis Ordered VTE Prophylaxis Devices: Yes VTE Pharmacological Prophylaxi: Yes Assessment/Plan Assessment/Plan IMPRESSION: Worsening of pulmonary edema/infiltrate A. fib ///flutter with RVR Left ventricle systolic function is low normal. recent echo The Ejection Fraction is 50%. Grade I-abnormal relaxation pattern. Pacer lead noted in RV/RA. Mild tricuspid regurgitation. moderate pulmonary hypertension. PA pressure was estimated at 55 mmHg. POORNIMA, vasomotor CKD STAGE 3-4 Plan Biotronik to interrogate device BB for rate control TSH Eliquis for stroke prophylaxis heparin drip iv Cardizem drip consult cardiology DVT prophylaxis Full code Serial enzymes Serial EKGs Home meds d/c metformin due to CKD GI prophylaxis NEPHROLOGY CONSULT 36 min cc time ABIDA VARGAS MD December 18, 2018 10:22
[2018-12-18 10:52] VITALS: BP 107/55
[2018-12-18] MEDS ORDERED: HEPARIN 25,000UTS/500ML PREMIX 500 ML IV PRN ×3 (11:00→12:00)
[2018-12-18] MEDS ORDERED: HEPARIN for IV BOLUS 10,000 UNIT/10 ML VIAL. IV PRN ×2 (11:00→12:00)
[2018-12-18] MEDS ORDERED: ANTI-COAG MONITOR BY PHARMACY. MC PRN (12:00)
[2018-12-18] MEDS: MAGNESIUM CHLORIDE ER 64 MG TABLET.ER PO SCH (12:30)
[2018-12-18] MEDS ORDERED: APIXABAN 5 MG TABLET. PO SCH (12:30)
[2018-12-18] MEDS: hydroCHLOROthiazide 12.5 MG CAPSULE PO SCH (12:30)
[2018-12-18] MEDS: LISINOPRIL 20 MG TABLET PO SCH (12:30)
[2018-12-18] MEDS ORDERED: DILT180C29 PO (12:43)
--- NOTE | 2018-12-18 12:44 | EKG ---
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
--- NOTE | 2018-12-18 12:44 | PDOC2 ---
CONSULT Date of Consult Date of Consult DATE: 12/18/18 TIME: 12:35 Reason for Consult Reason for Consult: Elevated Creat Identification/Chief Complaint Chief Complaint " I want to go home , i m feeling fine" Source Source: Chart review, Patient History of Present Illness Reason for Visit: Patient is a 78 year old AAM who presents with complaining of heart racing. 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 EKG showed atrial flutter with RVR and send to ER for evaluation. Patient complaining of generalized weakness without focal neuro deficit, fever and chills, chest pain, nausea and vomiting. Denies NSAID use. Never seen Nephrology, states doesnt know anything wrong with his Kidneys Denies any urinary complaints . On lisnopril/HCTZ for many years Only Med change Dose of Metoprolol increased to 100 mg Part of Hx obtained from Niece - DPOA Past Medical History Cardiovascular: AFIB, CHF, HTN, Hyperlipidemia, Other Pulmonary: COPD CENTRAL NERVOUS SYSTEM: Other GI: No pertinent hx Heme/Onc: No pertinent hx Hepatobiliary: No pertinent hx Psych: No pertinent hx Musculoskeletal: Osteoarthritis Rheumatologic: No pertinent hx Infectious disease: No pertinent hx Renal/: Chronic renal insuff Endocrine: Diabetes Past Surgical History Past Surgical History: Pacemaker Family History Family History: Coronary Artery Disease, Diabetes, High Cholestrol, Hypertension, Stroke Social History No ALCOHOL: none Drugs: None Lives: Alone Current Problem List Problem List Problems Medical Problems: (1) Atrial flutter with rapid ventricular response Status: Acute (2) Shortness of breath Status: Acute Current Medications Current Medications Current Medications Diltiazem HCl (Cardizem Iv Push) 20 mg 1X ONCE IVP Last administered on 12/18/18at 09:29; Start 12/18/18 at 09:30; Stop 12/18/18 at 09:31; Status DC Amiodarone HCl 900 mg/Dextrose 518 ml @ 0 mls/hr 1X ONCE IV Last administered on 12/18/18at 10:02; Start 12/18/18 at 10:00; Stop 12/18/18 at 10:01; Status DC Diltiazem HCl 125 mg/Dextrose 125 ml @ 10 mls/hr 1X ONCE IV Last administered on 12/18/18at 09:45; Start 12/18/18 at 10:00; Stop 12/18/18 at 22:29 Diltiazem HCl (Cardizem Iv Push) 25 mg STK-MED ONCE .ROUTE ; Start 12/18/18 at 09:24; Stop 12/18/18 at 09:25; Status DC Heparin Sodium/ Dextrose 500 ml @ 0 mls/hr CONT PRN IV SEE I/O RECORD; Start 12/18/18 at 11:00; Stop 12/18/18 at 11:00; Status Cancel Heparin Sodium/ Dextrose 500 ml @ 20 mls/hr CONT PRN IV SEE I/O RECORD Last administered on 12/18/18at 11:21; Start 12/18/18 at 11:00; Stop 12/18/18 at 11:49; Status DC Heparin Sodium (Porcine) (Heparin Sodium) 2,050 unit PRN Q6HRS PRN IV FOR UFH LEVEL LESS THAN 0.2; Start 12/18/18 at 11:00; Stop 12/18/18 at 11:50; Status DC Apixaban (Eliquis) 5 mg BID PO ; Start 12/18/18 at 12:30; Stop 12/18/18 at 12:30; Status DC Atorvastatin Calcium (Lipitor) 10 mg HS PO ; Start 12/18/18 at 21:00 Non-Formulary Medication (Lisinopril/ Hydrochlorothiazide (Lisinopril-Hctz 20- 12.5 Mg Tab)) 1 tab DAILY PO ; Start 12/19/18 at 09:00; Status UNV Magnesium Chloride (Mag Delay) 64 mg DAILY PO ; Start 12/18/18 at 12:30 Non-Formulary Medication (Metformin Hcl ) 500 mg BIDWMEALS PO ; Start 12/18/18 at 17:00; Stop 12/18/18 at 17:00; Status DC Metoprolol Tartrate (Lopressor) 100 mg BID PO ; Start 12/18/18 at 12:30 Lisinopril (Prinivil) 20 mg DAILY PO ; Start 12/18/18 at 12:30 Hydrochlorothiazide (Microzide) 12.5 mg DAILY PO ; Start 12/18/18 at 12:30 Info (Anti-Coagulation Monitoring By Pharmacy) 1 each PRN DAILY PRN MC SEE COMMENTS; Start 12/18/18 at 12:00 Pantoprazole Sodium (Protonix) 40 mg DAILYAC PO ; Start 12/18/18 at 12:00 Heparin Sodium/ Dextrose 500 ml @ 20 mls/hr CONT PRN IV SEE I/O RECORD; Start 12/18/18 at 12:00 Heparin Sodium (Porcine) (Heparin Sodium) 2,050 unit PRN Q6HRS PRN IV FOR UFH LEVEL LESS THAN 0.2; Start 12/18/18 at 12:00 Active Scripts Active Reported Metoprolol Tartrate 100 Mg Tablet 1 Tab PO BID Lisinopril-Hctz 20-12.5 Mg Tab (Lisinopril/Hydrochlorothiazide) 1 Each Tablet 1 Tab PO DAILY Mag64 (Magnesium Chloride) 64 Mg Tablet.er 64 Mg PO DAILY Eliquis (Apixaban) 5 Mg Tablet 5 Mg PO BID Atorvastatin Calcium 10 Mg Tablet 10 Mg PO HS Metformin Hcl 500 Mg Tablet 500 Mg PO BIDWMEALS Allergies Allergies: Coded Allergies: No Known Drug Allergies (Unverified , 11/30/13) ROS Review of System As per HPI Physical Exam Physical Exam General: Oriented X3, NAD HEENT: Atraumatic, Mucous membr. moist/pink Lungs: Normal air movement Heart: irregularly irregular Abdomen: Soft Neuro: Normal speech, Cranial nerves 3-12 NL Psych/Mental Status: Mental status NL, Mood NL Vital Signs Vital Signs Date Time Temp Pulse Resp B/P (MAP) Pulse Ox O2 Delivery O2 Flow Rate FiO2 12/18/18 12:06 Nasal Cannula 2.0 12/18/18 10:52 97.6 97 18 107/55 (72) 92 97.6 Assessment & Plan RAMBO - Cardio renal /Vasomotor Hypotensive , Hold Lisinopril and HCTZ Strict I/O , Daily standing weight Avoid nephrotoxins Renal US and UA ordered , follow CKD stage 3- Baseline Creat 1.5-1.8 based on PMC records ? RAMBO vs CKD Pulmonary edema/infiltrate A. fib ///flutter with RVR Has Pacer l Moderate pulmonary hypertension HTN- On MADDI-I and HCTZ at home Hold if Hypotensive and any worsening of renal function DM- Dc metformin Manage per Primary Labs Labs Laboratory Tests Test 12/18/18 09:39 White Blood Count 7.3 x10^3/uL (4.0-11.0) Red Blood Count 4.25 x10^6/uL (4.30-5.70) Hemoglobin 11.9 g/dL (13.0-17.5) Hematocrit 37.7 % (39.0-53.0) Mean Corpuscular Volume 89 fL (79-100) Mean Corpuscular Hemoglobin 28 pg (25-35) Mean Corpuscular Hemoglobin Concent 31 g/dL (31-37) Red Cell Distribution Width 14.6 % (11.5-14.5) Platelet Count 263 x10^3/uL (140-400) Neutrophils (%) (Auto) 71 % (31-73) Lymphocytes (%) (Auto) 16 % (24-48) Monocytes (%) (Auto) 10 % (0-9) Eosinophils (%) (Auto) 2 % (0-3) Basophils (%) (Auto) 1 % (0-3) Neutrophils # (Auto) 5.2 x10^3uL (1.8-7.7) Lymphocytes # (Auto) 1.2 x10^3/uL (1.0-4.8) Monocytes # (Auto) 0.7 x10^3/uL (0.0-1.1) Eosinophils # (Auto) 0.1 x10^3/uL (0.0-0.7) Basophils # (Auto) 0.1 x10^3/uL (0.0-0.2) Prothrombin Time 16.0 SEC (11.7-14.0) Prothromb Time International Ratio 1.3 (0.8-1.1) Sodium Level 142 mmol/L (136-145) Potassium Level 3.9 mmol/L (3.5-5.1) Chloride Level 105 mmol/L (98-107) Carbon Dioxide Level 24 mmol/L (21-32) Anion Gap 13 (6-14) Blood Urea Nitrogen 26 mg/dL (8-26) Creatinine 2.0 mg/dL (0.7-1.3) Estimated GFR (Cockcroft-Gault) 39.2 BUN/Creatinine Ratio 13 (6-20) Glucose Level 154 mg/dL (70-99) Calcium Level 9.0 mg/dL (8.5-10.1) Magnesium Level 1.7 mg/dL (1.8-2.4) Total Bilirubin 0.6 mg/dL (0.2-1.0) Aspartate Amino Transf (AST/SGOT) 17 U/L (15-37) Alanine Aminotransferase (ALT/SGPT) 19 U/L (16-63) Alkaline Phosphatase 78 U/L (46-116) Creatine Kinase 82 U/L (39-308) Troponin I Quantitative < 0.017 ng/mL (0.000-0.055) GO-Mwq-G-Type Natriuretic Peptide 1977 pg/mL (0-449) Total Protein 7.3 g/dL (6.4-8.2) Albumin 3.3 g/dL (3.4-5.0) Albumin/Globulin Ratio 0.8 (1.0-1.7) Laboratory Tests Test 12/18/18 09:39 White Blood Count 7.3 x10^3/uL (4.0-11.0) Red Blood Count 4.25 x10^6/uL (4.30-5.70) Hemoglobin 11.9 g/dL (13.0-17.5) Hematocrit 37.7 % (39.0-53.0) Mean Corpuscular Volume 89 fL (79-100) Mean Corpuscular Hemoglobin 28 pg (25-35) Mean Corpuscular Hemoglobin Concent 31 g/dL (31-37) Red Cell Distribution Width 14.6 % (11.5-14.5) Platelet Count 263 x10^3/uL (140-400) Neutrophils (%) (Auto) 71 % (31-73) Lymphocytes (%) (Auto) 16 % (24-48) Monocytes (%) (Auto) 10 % (0-9) Eosinophils (%) (Auto) 2 % (0-3) Basophils (%) (Auto) 1 % (0-3) Neutrophils # (Auto) 5.2 x10^3uL (1.8-7.7) Lymphocytes # (Auto) 1.2 x10^3/uL (1.0-4.8) Monocytes # (Auto) 0.7 x10^3/uL (0.0-1.1) Eosinophils # (Auto) 0.1 x10^3/uL (0.0-0.7) Basophils # (Auto) 0.1 x10^3/uL (0.0-0.2) Prothrombin Time 16.0 SEC (11.7-14.0) Prothromb Time International Ratio 1.3 (0.8-1.1) Sodium Level 142 mmol/L (136-145) Potassium Level 3.9 mmol/L (3.5-5.1) Chloride Level 105 mmol/L (98-107) Carbon Dioxide Level 24 mmol/L (21-32) Anion Gap 13 (6-14) Blood Urea Nitrogen 26 mg/dL (8-26) Creatinine 2.0 mg/dL (0.7-1.3) Estimated GFR (Cockcroft-Gault) 39.2 BUN/Creatinine Ratio 13 (6-20) Glucose Level 154 mg/dL (70-99) Calcium Level 9.0 mg/dL (8.5-10.1) Magnesium Level 1.7 mg/dL (1.8-2.4) Total Bilirubin 0.6 mg/dL (0.2-1.0) Aspartate Amino Transf (AST/SGOT) 17 U/L (15-37) Alanine Aminotransferase (ALT/SGPT) 19 U/L (16-63) Alkaline Phosphatase 78 U/L (46-116) Creatine Kinase 82 U/L (39-308) Troponin I Quantitative < 0.017 ng/mL (0.000-0.055) QU-Flz-W-Type Natriuretic Peptide 1977 pg/mL (0-449) Total Protein 7.3 g/dL (6.4-8.2) Albumin 3.3 g/dL (3.4-5.0) Albumin/Globulin Ratio 0.8 (1.0-1.7) Review All relevant outside records, renal labs, imaging studies, telemetry/EKG's were reviewed. Images Images 1. Cardiomegaly with mild vascular congestion. 2. Worsening left basilar infiltrate compatible with pneumonia versus pulmonary edema. SUDHIR WATERS MD December 18, 2018 12:44
--- NOTE | 2018-12-18 12:49 | EKG ---
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
[2018-12-18] MEDS: PANTOPRAZOLE 40 MG TABLET.DR. PO SCH (13:28)
[2018-12-18] MEDS: METOPROLOL TART IMMED RELEASE 50 MG TABLET. PO SCH ×2 (13:28→21:51)
--- NOTE | 2018-12-18 14:04 | PDOC ---
CARDIO Progress Notes Date and Time Date of Service 12/18/2018 Time of Evaluation 1330 Subjective Subjective: No Chest Pain, Other (SOA with exertion) Vitals Vitals Vital Signs Date Time Temp Pulse Resp B/P (MAP) Pulse Ox O2 Delivery O2 Flow Rate FiO2 12/18/18 13:28 97 107/55 12/18/18 12:06 Nasal Cannula 2.0 12/18/18 10:52 97.6 18 92 97.6 Weight Weight [ ] Laboratory Labs Laboratory Tests Test 12/18/18 09:39 White Blood Count 7.3 x10^3/uL (4.0-11.0) Red Blood Count 4.25 x10^6/uL (4.30-5.70) Hemoglobin 11.9 g/dL (13.0-17.5) Hematocrit 37.7 % (39.0-53.0) Mean Corpuscular Volume 89 fL (79-100) Mean Corpuscular Hemoglobin 28 pg (25-35) Mean Corpuscular Hemoglobin Concent 31 g/dL (31-37) Red Cell Distribution Width 14.6 % (11.5-14.5) Platelet Count 263 x10^3/uL (140-400) Neutrophils (%) (Auto) 71 % (31-73) Lymphocytes (%) (Auto) 16 % (24-48) Monocytes (%) (Auto) 10 % (0-9) Eosinophils (%) (Auto) 2 % (0-3) Basophils (%) (Auto) 1 % (0-3) Neutrophils # (Auto) 5.2 x10^3uL (1.8-7.7) Lymphocytes # (Auto) 1.2 x10^3/uL (1.0-4.8) Monocytes # (Auto) 0.7 x10^3/uL (0.0-1.1) Eosinophils # (Auto) 0.1 x10^3/uL (0.0-0.7) Basophils # (Auto) 0.1 x10^3/uL (0.0-0.2) Prothrombin Time 16.0 SEC (11.7-14.0) Prothromb Time International Ratio 1.3 (0.8-1.1) Sodium Level 142 mmol/L (136-145) Potassium Level 3.9 mmol/L (3.5-5.1) Chloride Level 105 mmol/L (98-107) Carbon Dioxide Level 24 mmol/L (21-32) Anion Gap 13 (6-14) Blood Urea Nitrogen 26 mg/dL (8-26) Creatinine 2.0 mg/dL (0.7-1.3) Estimated GFR (Cockcroft-Gault) 39.2 BUN/Creatinine Ratio 13 (6-20) Glucose Level 154 mg/dL (70-99) Calcium Level 9.0 mg/dL (8.5-10.1) Magnesium Level 1.7 mg/dL (1.8-2.4) Total Bilirubin 0.6 mg/dL (0.2-1.0) Aspartate Amino Transf (AST/SGOT) 17 U/L (15-37) Alanine Aminotransferase (ALT/SGPT) 19 U/L (16-63) Alkaline Phosphatase 78 U/L (46-116) Creatine Kinase 82 U/L (39-308) Troponin I Quantitative < 0.017 ng/mL (0.000-0.055) TU-Scq-H-Type Natriuretic Peptide 1977 pg/mL (0-449) Total Protein 7.3 g/dL (6.4-8.2) Albumin 3.3 g/dL (3.4-5.0) Albumin/Globulin Ratio 0.8 (1.0-1.7) Physical Exam Heart: irregularly irregular Assessment Assessment This is a pleasant 78 yo male admitted for complains of fast heart rate. He was briefly seen in the office and noted with AFIB/flutter RVR and was SOA, weak, and was directed to go to ED. Denies any chest pain, nausea. No recent fever or chills. I saw him as an inpt on 12/11 and was discharge that day. Amiodarone was started in ED. He has been feeling weak with palpitations in the last few days. Again no CP or passing out. Presently he wants to go home. He does not known his medications but verbalized that he is complaint and his niece prepares it for him. 1. PAFIB/a-flutter with RVR 2. Acute on chronic diastolic CHF: partly induced by arrhythmia. Recent EF at 50% 3. SSS s/p PPM (Biotronik), DDD-CLS, recently noted with normal function 4. Hypertension: marginally low.with CCB/BB and amiodarone. 5. DM2/HLP 6. 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 Tobaccoism; discussed/encouraged cessation Recommendations Continue metoprolol per BP trend. Amiodarone. replace Mg Eliquis 2.5 mg bid for stroke prevention. Hold HCTZ/ACEi for now. Lasix IV low dose, additional per response and BP trend. Continue secondary preventions. Smoking cessation Potential [facility] on Friday given his multiple episodes of refractory CHF and arrhythmia pending his renal function. Renal optimization per nephrology ERIC JASSO [employer] December 18, 2018 14:04
[2018-12-18] MEDS ORDERED: FUROSEMIDE 20 MG/2 ML VIAL. IVP ONE (14:15)
[2018-12-18 14:39] LABS: BILIRUBIN,URINE SMALL (NEG); CLARITY,URINE CLEAR; COLOR,URINE YELLOW; NITRITE,URINE NEGATIVE (NEG); PH,URINE 5.5; PROTEIN,URINE NEGATIVE (NEG-TRACE)
[2018-12-18 14:54] VITALS: BP 106/54
[2018-12-18] MEDS ORDERED: MAGNESIUM SULFATE 2GM 50 ML IV ONE (15:00)
[2018-12-18 15:09] LABS: BACTERIA,URINE 0 /HPF (0-FEW); RBC,URINE 0 /HPF (0-2); SQUAMOUS EPITHELIAL CELL,UR OCC /LPF
[2018-12-18] MEDS ORDERED: NON FORMULARY ITEM (Metformin Hcl 500 MG) PO SCH (17:00)
[2018-12-18 19:20] VITALS: BP 127/60
[2018-12-18] MEDS: APIXABAN 2.5 MG TABLET. PO SCH (21:51)
[2018-12-18] MEDS: ATORVASTATIN CALCIUM 10 MG TABLET. PO SCH (21:51)
[2018-12-18] MEDS: dilTIAZem INJ 125 MG in IV DEXTROSE 5% 100ML 100 ML IV PRN (22:22)
[2018-12-18 23:00] VITALS: BP 125/68
[2018-12-19] VITALS (14 sets, daily range): BP systolic 99–144; BP diastolic 56–86
[2018-12-19 04:40] LABS: BASO # 0.1 x10^3/uL (0.0-0.2); BASO % 1 % (0-3); EOS # 0.2 x10^3/uL (0.0-0.7); EOS % 4 % (0-3); HEMATOCRIT 33.1 % (39.0-53.0); HEMOGLOBIN 10.7 g/dL (13.0-17.5); LYMPH # 1.1 x10^3/uL (1.0-4.8); LYMPH % 17 % (24-48); MEAN CORPUSCULAR HEMOGLOBIN 29 pg (25-35); MEAN CORPUSCULAR HGB CONC 32 g/dL (31-37); MEAN CORPUSCULAR VOLUME 89 fL (79-100); MONO # 0.6 x10^3/uL (0.0-1.1); MONO % 9 % (0-9); NEUT # 4.4 x10^3uL (1.8-7.7); NEUT % 69 % (31-73); PLATELET COUNT 220 x10^3/uL (140-400); RED BLOOD COUNT 3.73 x10^6/uL (4.30-5.70); RED CELL DISTRIBUTION WIDTH 14.7 % (11.5-14.5); WHITE BLOOD COUNT 6.4 x10^3/uL (4.0-11.0)
[2018-12-19 04:59] LABS: ALBUMIN 2.9 g/dL (3.4-5.0); CALCIUM 8.5 mg/dL (8.5-10.1); CREATININE 1.7 mg/dL (0.7-1.3); GFR 47.3; PHOSPHORUS 3.4 mg/dL (2.6-4.7); POTASSIUM 3.8 mmol/L (3.5-5.1)
[2018-12-19] MEDS ORDERED: AMIODARONE 450 MG in IV DEXTROSE 5% 250 ML IV PRN (05:00)
--- NOTE | 2018-12-19 07:58 | RAD ---
Examination: Ultrasound kidneys HISTORY: History of acute renal insufficiency and chronic kidney disease COMPARISON: None available. Findings: The right kidney measures 9.7 x 4.9 x 4.8 cm. The left kidney measures 13.0 x 4.5 x 5.4 cm. No evidence of hydronephrosis. There is a cystic structure identified in the superior pole of the left kidney measuring 6.7 cm likely a cyst. Urinary bladder is mildly distended.The prostate is moderately enlarged with prostatic calcifications. IMPRESSION: 1. No evidence of hydronephrosis. 2. 6.7 cm cyst left kidney. 3. Moderate prostatomegaly. Electronically signed by: Berto Anderson MD (12/19/2018 7:55 AM) [facility]
[2018-12-19] MEDS: hydroCHLOROthiazide 12.5 MG CAPSULE PO SCH (08:54)
[2018-12-19] MEDS: LISINOPRIL 20 MG TABLET PO SCH (08:54)
[2018-12-19] MEDS: APIXABAN 2.5 MG TABLET. PO SCH ×2 (08:54→22:00)
[2018-12-19] MEDS: MAGNESIUM CHLORIDE ER 64 MG TABLET.ER PO SCH (08:54)
[2018-12-19] MEDS: PANTOPRAZOLE 40 MG TABLET.DR. PO SCH (08:55)
[2018-12-19] MEDS: METOPROLOL TART IMMED RELEASE 50 MG TABLET. PO SCH ×2 (08:55→22:01)
[2018-12-19] MEDS ORDERED: NON FORMULARY ITEM (Lisinopril/Hydrochlorothiazide (Lisinopril-Hctz 20-12.5 Mg Tab) 1 TAB) PO SCH (09:00)
--- NOTE | 2018-12-19 10:10 | PDOC ---
PROGRESS NOTES History of Present Illness History of Present Illness VTE Prophylaxis Ordered VTE Prophylaxis Devices: Yes VTE Pharmacological Prophylaxi: Yes Assessment/Plan Assessment/Plan IMPRESSION: Worsening of pulmonary edema/infiltrate A. fib ///flutter with RVR Left ventricle systolic function is low normal. recent echo The Ejection Fraction is 50%. Grade I-abnormal relaxation pattern. Pacer lead noted in RV/RA. Mild tricuspid regurgitation. moderate pulmonary hypertension. PA pressure was estimated at 55 mmHg. POORNIMA, vasomotor CKD STAGE 3-4 Plan , THEN 200MG PO DAILY AMIODARONE LOADING DOSE Biotronik to interrogate device BB for rate control TSH Eliquis for stroke prophylaxis heparin drip iv Cardizem drip consult cardiology DVT prophylaxis Full code Serial enzymes Serial EKGs Home meds d/c metformin due to CKD GI prophylaxis NEPHROLOGY CONSULT PT/OT 36 min pt exam, chart review, > 50% of time with exam, chart review, pt care coordination Vitals Vitals Vital Signs Date Time Temp Pulse Resp B/P (MAP) Pulse Ox O2 Delivery O2 Flow Rate FiO2 12/19/18 08:55 70 128/71 12/19/18 07:00 97.6 20 99 Nasal Cannula 2.0 97.6 Physical Exam General: Alert, Oriented X3, Cooperative, No acute distress Heart: Other (IRR rare 68) Lungs: Clear Abdomen: Normal bowel sounds, Soft Extremities: No cyanosis Skin: No rashes Labs LABS Laboratory Tests Test 12/18/18 14:05 12/18/18 14:25 12/18/18 17:30 12/19/18 03:50 Troponin I Quantitative < 0.017 ng/mL (0.000-0.055) < 0.017 ng/mL (0.000-0.055) Urine Color Yellow Urine Clarity Clear Urine pH 5.5 Urine Specific Trion 1.025 Urine Protein Negative mg/dL (NEG-TRACE) Urine Glucose (UA) Negative mg/dL (NEG) Urine Ketones (Stick) Negative mg/dL (NEG) Urine Blood Negative (NEG) Urine Nitrite Negative (NEG) Urine Bilirubin Small (NEG) Urine Urobilinogen Dipstick 1.0 mg/dL (0.2 mg/dL) Urine Leukocyte Esterase Trace (NEG) Urine RBC 0 /HPF (0-2) Urine WBC 1-4 /HPF (0-4) Urine Squamous Epithelial Cells Occ /LPF Urine Bacteria 0 /HPF (0-FEW) Urine Mucus Mod /LPF White Blood Count 6.4 x10^3/uL (4.0-11.0) Red Blood Count 3.73 x10^6/uL (4.30-5.70) Hemoglobin 10.7 g/dL (13.0-17.5) Hematocrit 33.1 % (39.0-53.0) Mean Corpuscular Volume 89 fL (79-100) Mean Corpuscular Hemoglobin 29 pg (25-35) Mean Corpuscular Hemoglobin Concent 32 g/dL (31-37) Red Cell Distribution Width 14.7 % (11.5-14.5) Platelet Count 220 x10^3/uL (140-400) Neutrophils (%) (Auto) 69 % (31-73) Lymphocytes (%) (Auto) 17 % (24-48) Monocytes (%) (Auto) 9 % (0-9) Eosinophils (%) (Auto) 4 % (0-3) Basophils (%) (Auto) 1 % (0-3) Neutrophils # (Auto) 4.4 x10^3uL (1.8-7.7) Lymphocytes # (Auto) 1.1 x10^3/uL (1.0-4.8) Monocytes # (Auto) 0.6 x10^3/uL (0.0-1.1) Eosinophils # (Auto) 0.2 x10^3/uL (0.0-0.7) Basophils # (Auto) 0.1 x10^3/uL (0.0-0.2) Sodium Level 139 mmol/L (136-145) Potassium Level 3.8 mmol/L (3.5-5.1) Chloride Level 103 mmol/L (98-107) Carbon Dioxide Level 26 mmol/L (21-32) Anion Gap 10 (6-14) Blood Urea Nitrogen 28 mg/dL (8-26) Creatinine 1.7 mg/dL (0.7-1.3) Estimated GFR (Cockcroft-Gault) 47.3 Glucose Level 174 mg/dL (70-99) Calcium Level 8.5 mg/dL (8.5-10.1) Phosphorus Level 3.4 mg/dL (2.6-4.7) Albumin 2.9 g/dL (3.4-5.0) Assessment and Plan Assessmemt and Plan Problems Medical Problems: (1) Anemia Status: Acute (2) Atrial flutter with rapid ventricular response Status: Acute (3) CHF (congestive heart failure) Status: Acute (4) Hypomagnesemia Status: Acute (5) Renal insufficiency Status: Acute (6) Shortness of breath Status: Acute Comment Review of Relevant I have reviewed the following items jacquelin (where applicable) has been applied. Labs Laboratory Tests Test 12/18/18 09:39 12/18/18 14:05 12/18/18 14:25 12/18/18 17:30 White Blood Count 7.3 x10^3/uL (4.0-11.0) Red Blood Count 4.25 x10^6/uL (4.30-5.70) Hemoglobin 11.9 g/dL (13.0-17.5) Hematocrit 37.7 % (39.0-53.0) Mean Corpuscular Volume 89 fL (79-100) Mean Corpuscular Hemoglobin 28 pg (25-35) Mean Corpuscular Hemoglobin Concent 31 g/dL (31-37) Red Cell Distribution Width 14.6 % (11.5-14.5) Platelet Count 263 x10^3/uL (140-400) Neutrophils (%) (Auto) 71 % (31-73) Lymphocytes (%) (Auto) 16 % (24-48) Monocytes (%) (Auto) 10 % (0-9) Eosinophils (%) (Auto) 2 % (0-3) Basophils (%) (Auto) 1 % (0-3) Neutrophils # (Auto) 5.2 x10^3uL (1.8-7.7) Lymphocytes # (Auto) 1.2 x10^3/uL (1.0-4.8) Monocytes # (Auto) 0.7 x10^3/uL (0.0-1.1) Eosinophils # (Auto) 0.1 x10^3/uL (0.0-0.7) Basophils # (Auto) 0.1 x10^3/uL (0.0-0.2) Prothrombin Time 16.0 SEC (11.7-14.0) Prothromb Time International Ratio 1.3 (0.8-1.1) Sodium Level 142 mmol/L (136-145) Potassium Level 3.9 mmol/L (3.5-5.1) Chloride Level 105 mmol/L (98-107) Carbon Dioxide Level 24 mmol/L (21-32) Anion Gap 13 (6-14) Blood Urea Nitrogen 26 mg/dL (8-26) Creatinine 2.0 mg/dL (0.7-1.3) Estimated GFR (Cockcroft-Gault) 39.2 BUN/Creatinine Ratio 13 (6-20) Glucose Level 154 mg/dL (70-99) Calcium Level 9.0 mg/dL (8.5-10.1) Magnesium Level 1.7 mg/dL (1.8-2.4) Total Bilirubin 0.6 mg/dL (0.2-1.0) Aspartate Amino Transf (AST/SGOT) 17 U/L (15-37) Alanine Aminotransferase (ALT/SGPT) 19 U/L (16-63) Alkaline Phosphatase 78 U/L (46-116) Creatine Kinase 82 U/L (39-308) Troponin I Quantitative < 0.017 ng/mL (0.000-0.055) < 0.017 ng/mL (0.000-0.055) < 0.017 ng/mL (0.000-0.055) BH-Zum-K-Type Natriuretic Peptide 1977 pg/mL (0-449) Total Protein 7.3 g/dL (6.4-8.2) Albumin 3.3 g/dL (3.4-5.0) Albumin/Globulin Ratio 0.8 (1.0-1.7) Urine Color Yellow Urine Clarity Clear Urine pH 5.5 Urine Specific Trion 1.025 Urine Protein Negative mg/dL (NEG-TRACE) Urine Glucose (UA) Negative mg/dL (NEG) Urine Ketones (Stick) Negative mg/dL (NEG) Urine Blood Negative (NEG) Urine Nitrite Negative (NEG) Urine Bilirubin Small (NEG) Urine Urobilinogen Dipstick 1.0 mg/dL (0.2 mg/dL) Urine Leukocyte Esterase Trace (NEG) Urine RBC 0 /HPF (0-2) Urine WBC 1-4 /HPF (0-4) Urine Squamous Epithelial Cells Occ /LPF Urine Bacteria 0 /HPF (0-FEW) Urine Mucus Mod /LPF Test 12/19/18 03:50 White Blood Count 6.4 x10^3/uL (4.0-11.0) Red Blood Count 3.73 x10^6/uL (4.30-5.70) Hemoglobin 10.7 g/dL (13.0-17.5) Hematocrit 33.1 % (39.0-53.0) Mean Corpuscular Volume 89 fL (79-100) Mean Corpuscular Hemoglobin 29 pg (25-35) Mean Corpuscular Hemoglobin Concent 32 g/dL (31-37) Red Cell Distribution Width 14.7 % (11.5-14.5) Platelet Count 220 x10^3/uL (140-400) Neutrophils (%) (Auto) 69 % (31-73) Lymphocytes (%) (Auto) 17 % (24-48) Monocytes (%) (Auto) 9 % (0-9) Eosinophils (%) (Auto) 4 % (0-3) Basophils (%) (Auto) 1 % (0-3) Neutrophils # (Auto) 4.4 x10^3uL (1.8-7.7) Lymphocytes # (Auto) 1.1 x10^3/uL (1.0-4.8) Monocytes # (Auto) 0.6 x10^3/uL (0.0-1.1) Eosinophils # (Auto) 0.2 x10^3/uL (0.0-0.7) Basophils # (Auto) 0.1 x10^3/uL (0.0-0.2) Sodium Level 139 mmol/L (136-145) Potassium Level 3.8 mmol/L (3.5-5.1) Chloride Level 103 mmol/L (98-107) Carbon Dioxide Level 26 mmol/L (21-32) Anion Gap 10 (6-14) Blood Urea Nitrogen 28 mg/dL (8-26) Creatinine 1.7 mg/dL (0.7-1.3) Estimated GFR (Cockcroft-Gault) 47.3 Glucose Level 174 mg/dL (70-99) Calcium Level 8.5 mg/dL (8.5-10.1) Phosphorus Level 3.4 mg/dL (2.6-4.7) Albumin 2.9 g/dL (3.4-5.0) Laboratory Tests Test 12/18/18 14:05 12/18/18 14:25 12/18/18 17:30 12/19/18 03:50 Troponin I Quantitative < 0.017 ng/mL (0.000-0.055) < 0.017 ng/mL (0.000-0.055) Urine Color Yellow Urine Clarity Clear Urine pH 5.5 Urine Specific Trion 1.025 Urine Protein Negative mg/dL (NEG-TRACE) Urine Glucose (UA) Negative mg/dL (NEG) Urine Ketones (Stick) Negative mg/dL (NEG) Urine Blood Negative (NEG) Urine Nitrite Negative (NEG) Urine Bilirubin Small (NEG) Urine Urobilinogen Dipstick 1.0 mg/dL (0.2 mg/dL) Urine Leukocyte Esterase Trace (NEG) Urine RBC 0 /HPF (0-2) Urine WBC 1-4 /HPF (0-4) Urine Squamous Epithelial Cells Occ /LPF Urine Bacteria 0 /HPF (0-FEW) Urine Mucus Mod /LPF White Blood Count 6.4 x10^3/uL (4.0-11.0) Red Blood Count 3.73 x10^6/uL (4.30-5.70) Hemoglobin 10.7 g/dL (13.0-17.5) Hematocrit 33.1 % (39.0-53.0) Mean Corpuscular Volume 89 fL (79-100) Mean Corpuscular Hemoglobin 29 pg (25-35) Mean Corpuscular Hemoglobin Concent 32 g/dL (31-37) Red Cell Distribution Width 14.7 % (11.5-14.5) Platelet Count 220 x10^3/uL (140-400) Neutrophils (%) (Auto) 69 % (31-73) Lymphocytes (%) (Auto) 17 % (24-48) Monocytes (%) (Auto) 9 % (0-9) Eosinophils (%) (Auto) 4 % (0-3) Basophils (%) (Auto) 1 % (0-3) Neutrophils # (Auto) 4.4 x10^3uL (1.8-7.7) Lymphocytes # (Auto) 1.1 x10^3/uL (1.0-4.8) Monocytes # (Auto) 0.6 x10^3/uL (0.0-1.1) Eosinophils # (Auto) 0.2 x10^3/uL (0.0-0.7) Basophils # (Auto) 0.1 x10^3/uL (0.0-0.2) Sodium Level 139 mmol/L (136-145) Potassium Level 3.8 mmol/L (3.5-5.1) Chloride Level 103 mmol/L (98-107) Carbon Dioxide Level 26 mmol/L (21-32) Anion Gap 10 (6-14) Blood Urea Nitrogen 28 mg/dL (8-26) Creatinine 1.7 mg/dL (0.7-1.3) Estimated GFR (Cockcroft-Gault) 47.3 Glucose Level 174 mg/dL (70-99) Calcium Level 8.5 mg/dL (8.5-10.1) Phosphorus Level 3.4 mg/dL (2.6-4.7) Albumin 2.9 g/dL (3.4-5.0) Medications Current Medications Diltiazem HCl (Cardizem Iv Push) 20 mg 1X ONCE IVP Last administered on 12/18/18at 09:29; Start 12/18/18 at 09:30; Stop 12/18/18 at 09:31; Status DC Amiodarone HCl 900 mg/Dextrose 518 ml @ 0 mls/hr 1X ONCE IV Last administered on 12/18/18at 10:02; Start 12/18/18 at 10:00; Stop 12/18/18 at 10:01; Status DC Diltiazem HCl 125 mg/Dextrose 125 ml @ 10 mls/hr 1X ONCE IV Last administered on 12/18/18at 09:45; Start 12/18/18 at 10:00; Stop 12/18/18 at 22:29; Status DC Diltiazem HCl (Cardizem Iv Push) 25 mg STK-MED ONCE .ROUTE ; Start 12/18/18 at 0 9:24; Stop 12/18/18 at 09:25; Status DC Heparin Sodium/ Dextrose 500 ml @ 0 mls/hr CONT PRN IV SEE I/O RECORD; Start 12/18/18 at 11:00; Stop 12/18/18 at 11:00; Status Cancel Heparin Sodium/ Dextrose 500 ml @ 20 mls/hr CONT PRN IV SEE I/O RECORD Last a dministered on 12/18/18at 11:21; Start 12/18/18 at 11:00; Stop 12/18/18 at 11:49; Status DC Heparin Sodium (Porcine) (Heparin Sodium) 2,050 unit PRN Q6HRS PRN IV FOR UFH LEVEL LESS THAN 0.2; Start 12/18/18 at 11:00; Stop 12/18/18 at 11:50; Status DC Apixaban (Eliquis) 5 mg BID PO ; Start 12/18/18 at 12:30; Stop 12/18/18 at 12:30; Status DC Atorvastatin Calcium (Lipitor) 10 mg HS PO Last administered on 12/18/18at 21:51; Start 12/18/18 at 21:00 Non-Formulary Medication (Lisinopril/ Hydrochlorothiazide (Lisinopril-Hctz 20- 12.5 Mg Tab)) 1 tab DAILY PO ; Start 12/19/18 at 09:00; Status UNV Magnesium Chloride (Mag Delay) 64 mg DAILY PO Last administered on 12/19/18at 08:54; Start 12/18/18 at 12:30 Non-Formulary Medication (Metformin Hcl ) 500 mg BIDWMEALS PO ; Start 12/18/18 at 17:00; Stop 12/18/18 at 17:00; Status DC Metoprolol Tartrate (Lopressor) 100 mg BID PO Last administered on 12/19/18at 08:55; Start 12/18/18 at 12:30 Lisinopril (Prinivil) 20 mg DAILY PO Last administered on 12/19/18at 08:54; Start 12/18/18 at 12:30 Hydrochlorothiazide (Microzide) 12.5 mg DAILY PO Last administered on 12/19/18at 08:54; Start 12/18/18 at 12:30 Info (Anti-Coagulation Monitoring By Pharmacy) 1 each PRN DAILY PRN MC SEE COMMENTS; Start 12/18/18 at 12:00 Pantoprazole Sodium (Protonix) 40 mg DAILYAC PO Last administered on 12/19/18at 08:55; Start 12/18/18 at 12:00 Heparin Sodium/ Dextrose 500 ml @ 20 mls/hr CONT PRN IV SEE I/O RECORD; Start 12/18/18 at 12:00; Stop 12/18/18 at 12:47; Status DC Heparin Sodium (Porcine) (Heparin Sodium) 2,050 unit PRN Q6HRS PRN IV FOR UFH LEVEL LESS THAN 0.2; Start 12/18/18 at 12:00; Stop 12/19/18 at 09:50; Status DC Apixaban (Eliquis) 2.5 mg BID PO Last administered on 12/19/18at 08:54; Start 12/18/18 at 21:00 Furosemide (Lasix) 20 mg 1X ONCE IVP Last administered on 12/18/18at 14:40; Start 12/18/18 at 14:15; Stop 12/18/18 at 14:24; Status DC Magnesium Sulfate 50 ml @ 25 mls/hr 1X ONCE IV Last administered on 12/18/18at 14:43; Start 12/18/18 at 15:00; Stop 12/18/18 at 16:59; Status DC Diltiazem HCl 125 mg/Dextrose 125 ml @ 5 mls/hr CONT PRN IV SEE I/O RECORD Last administered on 12/18/18at 22:22; Start 12/18/18 at 22:00 Amiodarone HCl 450 mg/Dextrose 259 ml @ 17.26 mls/ hr CONT PRN IV SEE I/O RECORD; Start 12/19/18 at 05:00 Active Scripts Active Reported Diltiazem 24HR Cd (Diltiazem Hcl) 180 Mg Cap.er.24h 240 Mg PO DAILY Metoprolol Tartrate 100 Mg Tablet 1 Tab PO BID Lisinopril-Hctz 20-12.5 Mg Tab (Lisinopril/Hydrochlorothiazide) 1 Each Tablet 1 Tab PO DAILY Eliquis (Apixaban) 5 Mg Tablet 5 Mg PO BID Atorvastatin Calcium 10 Mg Tablet 10 Mg PO HS Metformin Hcl 500 Mg Tablet 500 Mg PO BIDWMEALS Vitals/I & O Vital Sign - Last 24 Hours 12/18/18 12/18/18 12/18/18 12/18/18 10:52 12:06 13:28 14:54 Temp 97.6 97.5 97.6 97.5 Pulse 97 97 89 Resp 18 18 B/P (MAP) 107/55 (72) 107/55 106/54 (71) Pulse Ox 92 91 O2 Delivery Nasal Cannula Nasal Cannula Nasal Cannula O2 Flow Rate 2.0 2.0 2.0 12/18/18 12/18/18 12/18/18 12/18/18 19:20 20:00 21:51 23:00 Temp 97.7 97.7 97.7 97.7 Pulse 63 64 64 Resp 24 22 B/P (MAP) 127/60 (82) 127/60 125/68 (87) Pulse Ox 95 94 O2 Delivery Nasal Cannula Nasal Cannula Nasal Cannula O2 Flow Rate 2.0 2.0 2.0 12/19/18 12/19/18 12/19/18 12/19/18 03:45 07:00 08:54 08:55 Temp 97.8 97.6 97.8 97.6 Pulse 58 66 70 70 Resp 24 20 B/P (MAP) 107/58 (74) 99/62 (74) 128/71 128/71 Pulse Ox 94 99 O2 Delivery Nasal Cannula Nasal Cannula O2 Flow Rate 2.0 2.0 Intake and Output 12/18/18 12/18/18 12/19/18 14:59 22:59 06:59 Intake Total 500 ml 200 ml Output Total 450 ml 200 ml Balance 50 ml 0 ml ABIDA VARGAS MD December 19, 2018 10:10
[2018-12-19] MEDS: dilTIAZem INJ 125 MG in IV DEXTROSE 5% 100ML 100 ML IV PRN (10:28)
--- NOTE | 2018-12-19 10:45 | PDOC ---
PROGRESS NOTES Subjective Subjective Feeling better today. Denied any chest pain or palpitations. Objective Objective Vital Signs Date Time Temp Pulse Resp B/P (MAP) Pulse Ox O2 Delivery O2 Flow Rate FiO2 12/19/18 08:55 70 128/71 12/19/18 07:00 97.6 20 99 Nasal Cannula 2.0 97.6 Intake and Output 12/19/18 07:00 Intake Total 700 ml Output Total 650 ml Balance 50 ml Intake Oral 700 ml Output Urine Total 650 ml Physical Exam Abdomen: Soft Heart: Regular rate Extremities: No edema General: Oriented X3, Cooperative HEENT: Atraumatic, Mucous membr. moist/pink Lungs: Normal air movement Neuro: Normal speech Psych/Mental Status: Mental status NL, Mood NL Assessment Assessment 1. PAFIB/a-flutter with RVR: Presently back in sinus rhythm. Change amiodarone and Cardizem to PO. Possible DC home tomorrow. 2. Acute on chronic diastolic CHF: Recent EF at 50%. Better compensated. Plan for cardiac catheterization as an outpatient. 3. SSS s/p PPM ([employer]), DDD-CLS, recent device check showed normal function 4. Hypertension: Controlled 5. DM2/HLP: Per IM 6. 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 Tobaccoism; discussed/encouraged cessation Plan Plan of Care Problems Medical Problems: (1) Anemia Status: Acute (2) Atrial flutter with rapid ventricular response Status: Acute (3) CHF (congestive heart failure) Status: Acute (4) Hypomagnesemia Status: Acute (5) Renal insufficiency Status: Acute (6) Shortness of breath Status: Acute Comment Review of Relevant I have reviewed the following items jacquelin (where applicable) has been applied. Labs Laboratory Tests Test 12/18/18 14:05 12/18/18 14:25 12/18/18 17:30 12/19/18 03:50 Troponin I Quantitative < 0.017 ng/mL (0.000-0.055) < 0.017 ng/mL (0.000-0.055) Urine Color Yellow Urine Clarity Clear Urine pH 5.5 Urine Specific [place] 1.025 Urine Protein Negative mg/dL (NEG-TRACE) Urine Glucose (UA) Negative mg/dL (NEG) Urine Ketones (Stick) Negative mg/dL (NEG) Urine Blood Negative (NEG) Urine Nitrite Negative (NEG) Urine Bilirubin Small (NEG) Urine Urobilinogen Dipstick 1.0 mg/dL (0.2 mg/dL) Urine Leukocyte Esterase Trace (NEG) Urine RBC 0 /HPF (0-2) Urine WBC 1-4 /HPF (0-4) Urine Squamous Epithelial Cells Occ /LPF Urine Bacteria 0 /HPF (0-FEW) Urine Mucus Mod /LPF White Blood Count 6.4 x10^3/uL (4.0-11.0) Red Blood Count 3.73 x10^6/uL (4.30-5.70) Hemoglobin 10.7 g/dL (13.0-17.5) Hematocrit 33.1 % (39.0-53.0) Mean Corpuscular Volume 89 fL (79-100) Mean Corpuscular Hemoglobin 29 pg (25-35) Mean Corpuscular Hemoglobin Concent 32 g/dL (31-37) Red Cell Distribution Width 14.7 % (11.5-14.5) Platelet Count 220 x10^3/uL (140-400) Neutrophils (%) (Auto) 69 % (31-73) Lymphocytes (%) (Auto) 17 % (24-48) Monocytes (%) (Auto) 9 % (0-9) Eosinophils (%) (Auto) 4 % (0-3) Basophils (%) (Auto) 1 % (0-3) Neutrophils # (Auto) 4.4 x10^3uL (1.8-7.7) Lymphocytes # (Auto) 1.1 x10^3/uL (1.0-4.8) Monocytes # (Auto) 0.6 x10^3/uL (0.0-1.1) Eosinophils # (Auto) 0.2 x10^3/uL (0.0-0.7) Basophils # (Auto) 0.1 x10^3/uL (0.0-0.2) Sodium Level 139 mmol/L (136-145) Potassium Level 3.8 mmol/L (3.5-5.1) Chloride Level 103 mmol/L (98-107) Carbon Dioxide Level 26 mmol/L (21-32) Anion Gap 10 (6-14) Blood Urea Nitrogen 28 mg/dL (8-26) Creatinine 1.7 mg/dL (0.7-1.3) Estimated GFR (Cockcroft-Gault) 47.3 Glucose Level 174 mg/dL (70-99) Calcium Level 8.5 mg/dL (8.5-10.1) Phosphorus Level 3.4 mg/dL (2.6-4.7) Albumin 2.9 g/dL (3.4-5.0) Medications Current Medications Amiodarone HCl 450 mg/Dextrose 259 ml @ 17.26 mls/ hr CONT PRN IV SEE I/O RECORD; Start 12/19/18 at 05:00 Apixaban (Eliquis) 2.5 mg BID PO Last administered on 12/19/18at 08:54; Start 12/18/18 at 21:00 Apixaban (Eliquis) 5 mg BID PO ; Start 12/18/18 at 12:30; Stop 12/18/18 at 12:30; Status DC Atorvastatin Calcium (Lipitor) 10 mg HS PO Last administered on 12/18/18at 21:51; Start 12/18/18 at 21:00 Diltiazem HCl 125 mg/Dextrose 125 ml @ 5 mls/hr CONT PRN IV SEE I/O RECORD Last administered on 12/19/18at 10:28; Start 12/18/18 at 22:00 Furosemide (Lasix) 20 mg 1X ONCE IVP Last administered on 12/18/18at 14:40; Start 12/18/18 at 14:15; Stop 12/18/18 at 14:24; Status DC Heparin Sodium (Porcine) (Heparin Sodium) 2,050 unit PRN Q6HRS PRN IV FOR UFH LEVEL LESS THAN 0.2; Start 12/18/18 at 11:00; Stop 12/18/18 at 11:50; Status DC Heparin Sodium (Porcine) (Heparin Sodium) 2,050 unit PRN Q6HRS PRN IV FOR UFH LEVEL LESS THAN 0.2; Start 12/18/18 at 12:00; Stop 12/19/18 at 09:50; Status DC Heparin Sodium/ Dextrose 500 ml @ 20 mls/hr CONT PRN IV SEE I/O RECORD Last administered on 12/18/18at 11:21; Start 12/18/18 at 11:00; Stop 12/18/18 at 11:49; Status DC Heparin Sodium/ Dextrose 500 ml @ 20 mls/hr CONT PRN IV SEE I/O RECORD; Start 12/18/18 at 12:00; Stop 12/18/18 at 12:47; Status DC Heparin Sodium/ Dextrose 500 ml @ 0 mls/hr CONT PRN IV SEE I/O RECORD; Start 12/18/18 at 11:00; Stop 12/18/18 at 11:00; Status Cancel Hydrochlorothiazide (Microzide) 12.5 mg DAILY PO Last administered on 12/19/18at 08:54; Start 12/18/18 at 12:30 Info (Anti-Coagulation Monitoring By Pharmacy) 1 each PRN DAILY PRN [facility] SEE COMMENTS; Start 12/18/18 at 12:00 Lisinopril (Prinivil) 20 mg DAILY PO Last administered on 12/19/18at 08:54; Start 12/18/18 at 12:30 Magnesium Chloride (Mag Delay) 64 mg DAILY PO Last administered on 12/19/18at 08:54; Start 12/18/18 at 12:30 Magnesium Sulfate 50 ml @ 25 mls/hr 1X ONCE IV Last administered on 12/18/18at 14:43; Start 12/18/18 at 15:00; Stop 12/18/18 at 16:59; Status DC Metoprolol Tartrate (Lopressor) 100 mg BID PO Last administered on 12/19/18at 08:55; Start 12/18/18 at 12:30 Non-Formulary Medication (Lisinopril/ Hydrochlorothiazide (Lisinopril-Hctz 20- 12.5 Mg Tab)) 1 tab DAILY PO ; Start 12/19/18 at 09:00; Status UNV Non-Formulary Medication (Metformin Hcl ) 500 mg BIDWMEALS PO ; Start 12/18/18 at 17:00; Stop 12/18/18 at 17:00; Status DC Pantoprazole Sodium (Protonix) 40 mg DAILYAC PO Last administered on 12/19/18at 08:55; Start 12/18/18 at 12:00 Vitals/I & O Vital Sign - Last 24 Hours 12/18/18 12/18/18 12/18/18 12/18/18 10:52 12:06 13:28 14:54 Temp 97.6 97.5 97.6 97.5 Pulse 97 97 89 Resp 18 18 B/P (MAP) 107/55 (72) 107/55 106/54 (71) Pulse Ox 92 91 O2 Delivery Nasal Cannula Nasal Cannula Nasal Cannula O2 Flow Rate 2.0 2.0 2.0 12/18/18 12/18/18 12/18/18 12/18/18 19:20 20:00 21:51 23:00 Temp 97.7 97.7 97.7 97.7 Pulse 63 64 64 Resp 24 22 B/P (MAP) 127/60 (82) 127/60 125/68 (87) Pulse Ox 95 94 O2 Delivery Nasal Cannula Nasal Cannula Nasal Cannula O2 Flow Rate 2.0 2.0 2.0 12/19/18 12/19/18 12/19/18 12/19/18 03:45 07:00 08:54 08:55 Temp 97.8 97.6 97.8 97.6 Pulse 58 66 70 70 Resp 24 20 B/P (MAP) 107/58 (74) 99/62 (74) 128/71 128/71 Pulse Ox 94 99 O2 Delivery Nasal Cannula Nasal Cannula O2 Flow Rate 2.0 2.0 Intake and Output 12/18/18 12/18/18 12/19/18 15:00 23:00 07:00 Intake Total 500 ml 200 ml Output Total 450 ml 200 ml Balance 50 ml 0 ml CARLTON MARTINEZ MD December 19, 2018 10:45
[2018-12-19] MEDS: AMIODARONE HCL 200 MG TABLET. PO SCH (12:35)
--- NOTE | 2018-12-19 13:01 | PDOC ---
PROGRESS NOTES Subjective Subjective SEEN IN FOLLOW UP OF CKD3 Objective Objective Vital Signs Date Time Temp Pulse Resp B/P (MAP) Pulse Ox O2 Delivery O2 Flow Rate FiO2 12/19/18 12:35 64 114/64 12/19/18 11:00 97.6 20 97 Nasal Cannula 2.0 97.6 Intake and Output 12/19/18 07:00 Intake Total 700 ml Output Total 650 ml Balance 50 ml Intake Oral 700 ml Output Urine Total 650 ml Physical Exam Abdomen: Normal bowel sounds, Soft, No tenderness, No hepatosplenomegaly, No masses Heart: Regular rate, Normal S1, Normal S2, No murmurs, Gallops Extremities: No clubbing General: Alert, Oriented X3, Cooperative, No acute distress Lungs: Clear to auscultation, Normal air movement Diagnosis RENAL FAILURE: Chronic (CKD stage III) Assessment Assessment Problems Medical Problems: (1) Anemia Status: Acute (2) Atrial flutter with rapid ventricular response Status: Acute (3) CHF (congestive heart failure) Status: Acute (4) Hypomagnesemia Status: Acute (5) Renal insufficiency Status: Acute (6) Shortness of breath Status: Acute Plan Plan of Care RENAL FUNCTION IS AT BASELINE. OK TO D/C. WILL SIGN OFF Comment Review of Relevant I have reviewed the following items jacquelin (where applicable) has been applied. Labs Laboratory Tests Test 12/18/18 09:39 12/18/18 14:05 12/18/18 14:25 12/18/18 17:30 White Blood Count 7.3 x10^3/uL (4.0-11.0) Red Blood Count 4.25 x10^6/uL (4.30-5.70) Hemoglobin 11.9 g/dL (13.0-17.5) Hematocrit 37.7 % (39.0-53.0) Mean Corpuscular Volume 89 fL (79-100) Mean Corpuscular Hemoglobin 28 pg (25-35) Mean Corpuscular Hemoglobin Concent 31 g/dL (31-37) Red Cell Distribution Width 14.6 % (11.5-14.5) Platelet Count 263 x10^3/uL (140-400) Neutrophils (%) (Auto) 71 % (31-73) Lymphocytes (%) (Auto) 16 % (24-48) Monocytes (%) (Auto) 10 % (0-9) Eosinophils (%) (Auto) 2 % (0-3) Basophils (%) (Auto) 1 % (0-3) Neutrophils # (Auto) 5.2 x10^3uL (1.8-7.7) Lymphocytes # (Auto) 1.2 x10^3/uL (1.0-4.8) Monocytes # (Auto) 0.7 x10^3/uL (0.0-1.1) Eosinophils # (Auto) 0.1 x10^3/uL (0.0-0.7) Basophils # (Auto) 0.1 x10^3/uL (0.0-0.2) Prothrombin Time 16.0 SEC (11.7-14.0) Prothromb Time International Ratio 1.3 (0.8-1.1) Sodium Level 142 mmol/L (136-145) Potassium Level 3.9 mmol/L (3.5-5.1) Chloride Level 105 mmol/L (98-107) Carbon Dioxide Level 24 mmol/L (21-32) Anion Gap 13 (6-14) Blood Urea Nitrogen 26 mg/dL (8-26) Creatinine 2.0 mg/dL (0.7-1.3) Estimated GFR (Cockcroft-Gault) 39.2 BUN/Creatinine Ratio 13 (6-20) Glucose Level 154 mg/dL (70-99) Calcium Level 9.0 mg/dL (8.5-10.1) Magnesium Level 1.7 mg/dL (1.8-2.4) Total Bilirubin 0.6 mg/dL (0.2-1.0) Aspartate Amino Transf (AST/SGOT) 17 U/L (15-37) Alanine Aminotransferase (ALT/SGPT) 19 U/L (16-63) Alkaline Phosphatase 78 U/L (46-116) Creatine Kinase 82 U/L (39-308) Troponin I Quantitative < 0.017 ng/mL (0.000-0.055) < 0.017 ng/mL (0.000-0.055) < 0.017 ng/mL (0.000-0.055) AX-Kfp-G-Type Natriuretic Peptide 1977 pg/mL (0-449) Total Protein 7.3 g/dL (6.4-8.2) Albumin 3.3 g/dL (3.4-5.0) Albumin/Globulin Ratio 0.8 (1.0-1.7) Urine Color Yellow Urine Clarity Clear Urine pH 5.5 Urine Specific [place] 1.025 Urine Protein Negative mg/dL (NEG-TRACE) Urine Glucose (UA) Negative mg/dL (NEG) Urine Ketones (Stick) Negative mg/dL (NEG) Urine Blood Negative (NEG) Urine Nitrite Negative (NEG) Urine Bilirubin Small (NEG) Urine Urobilinogen Dipstick 1.0 mg/dL (0.2 mg/dL) Urine Leukocyte Esterase Trace (NEG) Urine RBC 0 /HPF (0-2) Urine WBC 1-4 /HPF (0-4) Urine Squamous Epithelial Cells Occ /LPF Urine Bacteria 0 /HPF (0-FEW) Urine Mucus Mod /LPF Test 12/19/18 03:50 White Blood Count 6.4 x10^3/uL (4.0-11.0) Red Blood Count 3.73 x10^6/uL (4.30-5.70) Hemoglobin 10.7 g/dL (13.0-17.5) Hematocrit 33.1 % (39.0-53.0) Mean Corpuscular Volume 89 fL (79-100) Mean Corpuscular Hemoglobin 29 pg (25-35) Mean Corpuscular Hemoglobin Concent 32 g/dL (31-37) Red Cell Distribution Width 14.7 % (11.5-14.5) Platelet Count 220 x10^3/uL (140-400) Neutrophils (%) (Auto) 69 % (31-73) Lymphocytes (%) (Auto) 17 % (24-48) Monocytes (%) (Auto) 9 % (0-9) Eosinophils (%) (Auto) 4 % (0-3) Basophils (%) (Auto) 1 % (0-3) Neutrophils # (Auto) 4.4 x10^3uL (1.8-7.7) Lymphocytes # (Auto) 1.1 x10^3/uL (1.0-4.8) Monocytes # (Auto) 0.6 x10^3/uL (0.0-1.1) Eosinophils # (Auto) 0.2 x10^3/uL (0.0-0.7) Basophils # (Auto) 0.1 x10^3/uL (0.0-0.2) Sodium Level 139 mmol/L (136-145) Potassium Level 3.8 mmol/L (3.5-5.1) Chloride Level 103 mmol/L (98-107) Carbon Dioxide Level 26 mmol/L (21-32) Anion Gap 10 (6-14) Blood Urea Nitrogen 28 mg/dL (8-26) Creatinine 1.7 mg/dL (0.7-1.3) Estimated GFR (Cockcroft-Gault) 47.3 Glucose Level 174 mg/dL (70-99) Calcium Level 8.5 mg/dL (8.5-10.1) Phosphorus Level 3.4 mg/dL (2.6-4.7) Albumin 2.9 g/dL (3.4-5.0) Laboratory Tests Test 12/18/18 14:05 12/18/18 14:25 12/18/18 17:30 12/19/18 03:50 Troponin I Quantitative < 0.017 ng/mL (0.000-0.055) < 0.017 ng/mL (0.000-0.055) Urine Color Yellow Urine Clarity Clear Urine pH 5.5 Urine Specific [place] 1.025 Urine Protein Negative mg/dL (NEG-TRACE) Urine Glucose (UA) Negative mg/dL (NEG) Urine Ketones (Stick) Negative mg/dL (NEG) Urine Blood Negative (NEG) Urine Nitrite Negative (NEG) Urine Bilirubin Small (NEG) Urine Urobilinogen Dipstick 1.0 mg/dL (0.2 mg/dL) Urine Leukocyte Esterase Trace (NEG) Urine RBC 0 /HPF (0-2) Urine WBC 1-4 /HPF (0-4) Urine Squamous Epithelial Cells Occ /LPF Urine Bacteria 0 /HPF (0-FEW) Urine Mucus Mod /LPF White Blood Count 6.4 x10^3/uL (4.0-11.0) Red Blood Count 3.73 x10^6/uL (4.30-5.70) Hemoglobin 10.7 g/dL (13.0-17.5) Hematocrit 33.1 % (39.0-53.0) Mean Corpuscular Volume 89 fL (79-100) Mean Corpuscular Hemoglobin 29 pg (25-35) Mean Corpuscular Hemoglobin Concent 32 g/dL (31-37) Red Cell Distribution Width 14.7 % (11.5-14.5) Platelet Count 220 x10^3/uL (140-400) Neutrophils (%) (Auto) 69 % (31-73) Lymphocytes (%) (Auto) 17 % (24-48) Monocytes (%) (Auto) 9 % (0-9) Eosinophils (%) (Auto) 4 % (0-3) Basophils (%) (Auto) 1 % (0-3) Neutrophils # (Auto) 4.4 x10^3uL (1.8-7.7) Lymphocytes # (Auto) 1.1 x10^3/uL (1.0-4.8) Monocytes # (Auto) 0.6 x10^3/uL (0.0-1.1) Eosinophils # (Auto) 0.2 x10^3/uL (0.0-0.7) Basophils # (Auto) 0.1 x10^3/uL (0.0-0.2) Sodium Level 139 mmol/L (136-145) Potassium Level 3.8 mmol/L (3.5-5.1) Chloride Level 103 mmol/L (98-107) Carbon Dioxide Level 26 mmol/L (21-32) Anion Gap 10 (6-14) Blood Urea Nitrogen 28 mg/dL (8-26) Creatinine 1.7 mg/dL (0.7-1.3) Estimated GFR (Cockcroft-Gault) 47.3 Glucose Level 174 mg/dL (70-99) Calcium Level 8.5 mg/dL (8.5-10.1) Phosphorus Level 3.4 mg/dL (2.6-4.7) Albumin 2.9 g/dL (3.4-5.0) Medications Current Medications Diltiazem HCl (Cardizem Iv Push) 20 mg 1X ONCE IVP Last administered on 12/18/18at 09:29; Start 12/18/18 at 09:30; Stop 12/18/18 at 09:31; Status DC Amiodarone HCl 900 mg/Dextrose 518 ml @ 0 mls/hr 1X ONCE IV Last administered on 12/18/18at 10:02; Start 12/18/18 at 10:00; Stop 12/18/18 at 10:01; Status DC Diltiazem HCl 125 mg/Dextrose 125 ml @ 10 mls/hr 1X ONCE IV Last administered on 12/18/18at 09:45; Start 12/18/18 at 10:00; Stop 12/18/18 at 22:29; Status DC Diltiazem HCl (Cardizem Iv Push) 25 mg STK-MED ONCE .ROUTE ; Start 12/18/18 at 09:24; Stop 12/18/18 at 09:25; Status DC Heparin Sodium/ Dextrose 500 ml @ 0 mls/hr CONT PRN IV SEE I/O RECORD; Start 12/18/18 at 11:00; Stop 12/18/18 at 11:00; Status Cancel Heparin Sodium/ Dextrose 500 ml @ 20 mls/hr CONT PRN IV SEE I/O RECORD Last administered on 12/18/18at 11:21; Start 12/18/18 at 11:00; Stop 12/18/18 at 11:49; Status DC Heparin Sodium (Porcine) (Heparin Sodium) 2,050 unit PRN Q6HRS PRN IV FOR UFH LEVEL LESS THAN 0.2; Start 12/18/18 at 11:00; Stop 12/18/18 at 11:50; Status DC Apixaban (Eliquis) 5 mg BID PO ; Start 12/18/18 at 12:30; Stop 12/18/18 at 12:30; Status DC Atorvastatin Calcium (Lipitor) 10 mg HS PO Last administered on 12/18/18at 21:51; Start 12/18/18 at 21:00 Non-Formulary Medication (Lisinopril/ Hydrochlorothiazide (Lisinopril-Hctz 20- 12.5 Mg Tab)) 1 tab DAILY PO ; Start 12/19/18 at 09:00; Status UNV Magnesium Chloride (Mag Delay) 64 mg DAILY PO Last administered on 12/19/18at 08:54; Start 12/18/18 at 12:30 Non-Formulary Medication (Metformin Hcl ) 500 mg BIDWMEALS PO ; Start 12/18/18 at 17:00; Stop 12/18/18 at 17:00; Status DC Metoprolol Tartrate (Lopressor) 100 mg BID PO Last administered on 12/19/18at 08:55; Start 12/18/18 at 12:30 Lisinopril (Prinivil) 20 mg DAILY PO Last administered on 12/19/18at 08:54; Start 12/18/18 at 12:30 Hydrochlorothiazide (Microzide) 12.5 mg DAILY PO Last administered on 12/19/18at 08:54; Start 12/18/18 at 12:30 Info (Anti-Coagulation Monitoring By Pharmacy) 1 each PRN DAILY PRN [facility] SEE COMMENTS; Start 12/18/18 at 12:00 Pantoprazole Sodium (Protonix) 40 mg DAILYAC PO Last administered on 12/19/18at 08:55; Start 12/18/18 at 12:00 Heparin Sodium/ Dextrose 500 ml @ 20 mls/hr CONT PRN IV SEE I/O RECORD; Start 12/18/18 at 12:00; Stop 12/18/18 at 12:47; Status DC Heparin Sodium (Porcine) (Heparin Sodium) 2,050 unit PRN Q6HRS PRN IV FOR UFH LEVEL LESS THAN 0.2; Start 12/18/18 at 12:00; Stop 12/19/18 at 09:50; Status DC Apixaban (Eliquis) 2.5 mg BID PO Last administered on 12/19/18at 08:54; Start 12/18/18 at 21:00 Furosemide (Lasix) 20 mg 1X ONCE IVP Last administered on 12/18/18at 14:40; Start 12/18/18 at 14:15; Stop 12/18/18 at 14:24; Status DC Magnesium Sulfate 50 ml @ 25 mls/hr 1X ONCE IV Last administered on 12/18/18at 14:43; Start 12/18/18 at 15:00; Stop 12/18/18 at 16:59; Status DC Diltiazem HCl 125 mg/Dextrose 125 ml @ 5 mls/hr CONT PRN IV SEE I/O RECORD Last administered on 12/19/18at 10:28; Start 12/18/18 at 22:00; Stop 12/19/18 at 11:48; Status DC Amiodarone HCl 450 mg/Dextrose 259 ml @ 17.26 mls/ hr CONT PRN IV SEE I/O RECORD; Start 12/19/18 at 05:00; Stop 12/19/18 at 11:48; Status DC Amiodarone HCl (Cordarone) 200 mg DAILY PO Last administered on 12/19/18at 12:35; Start 12/19/18 at 12:30 Diltiazem HCl (Cardizem 24hr Cd) 120 mg DAILY PO Last administered on 12/19/18at 12:34; Start 12/19/18 at 12:30 Active Scripts Active Reported Diltiazem 24HR Cd (Diltiazem Hcl) 180 Mg Cap.er.24h 240 Mg PO DAILY Metoprolol Tartrate 100 Mg Tablet 1 Tab PO BID Lisinopril-Hctz 20-12.5 Mg Tab (Lisinopril/Hydrochlorothiazide) 1 Each Tablet 1 Tab PO DAILY Eliquis (Apixaban) 5 Mg Tablet 5 Mg PO BID Atorvastatin Calcium 10 Mg Tablet 10 Mg PO HS Metformin Hcl 500 Mg Tablet 500 Mg PO BIDWMEALS Vitals/I & O Vital Sign - Last 24 Hours 12/18/18 12/18/18 12/18/18 12/18/18 13:28 14:54 19:20 20:00 Temp 97.5 97.7 97.5 97.7 Pulse 97 89 63 Resp 18 24 B/P (MAP) 107/55 106/54 (71) 127/60 (82) Pulse Ox 91 95 O2 Delivery Nasal Cannula Nasal Cannula Nasal Cannula O2 Flow Rate 2.0 2.0 2.0 12/18/18 12/18/18 12/19/18 12/19/18 21:51 23:00 03:45 07:00 Temp 97.7 97.8 97.6 97.7 97.8 97.6 Pulse 64 64 58 66 Resp 22 24 20 B/P (MAP) 127/60 125/68 (87) 107/58 (74) 99/62 (74) Pulse Ox 94 94 99 O2 Delivery Nasal Cannula Nasal Cannula Nasal Cannula O2 Flow Rate 2.0 2.0 2.0 12/19/18 12/19/18 12/19/18 12/19/18 08:00 08:54 08:55 11:00 Temp 97.6 97.6 Pulse 70 70 64 Resp 20 B/P (MAP) 128/71 128/71 112/67 (82) Pulse Ox 97 O2 Delivery Nasal Cannula Nasal Cannula O2 Flow Rate 2.0 2.0 12/19/18 12/19/18 12:34 12:35 Pulse 65 64 B/P (MAP) 114/64 114/64 Intake and Output 12/18/18 12/18/18 12/19/18 15:00 23:00 07:00 Intake Total 500 ml 200 ml Output Total 450 ml 200 ml Balance 50 ml 0 ml SOFY STARKEY MD December 19, 2018 13:01
[2018-12-19] MEDS: ATORVASTATIN CALCIUM 10 MG TABLET. PO SCH (22:00)
[2018-12-20 03:50] VITALS: BP 118/62
[2018-12-20 08:18] VITALS: BP 144/64
--- NOTE | 2018-12-20 09:05 | PDOC ---
PROGRESS NOTES Subjective Subjective Feeling better. Denied any chest pain Objective Objective Vital Signs Date Time Temp Pulse Resp B/P (MAP) Pulse Ox O2 Delivery O2 Flow Rate FiO2 12/20/18 08:18 97.5 68 16 144/64 (90) 94 Room Air 97.5 12/19/18 11:00 2.0 l Intake and Output 12/20/18 06:59 Intake Total 570 ml Output Total 1000 ml Balance -430 ml Intake Oral 570 ml Output Urine Total 1000 ml Physical Exam Abdomen: Normal bowel sounds, Soft Heart: Other (IRR rare 68) Extremities: No cyanosis General: Alert, Oriented X3, Cooperative, No acute distress HEENT: Atraumatic, Mucous membr. moist/pink Lungs: Clear to auscultation, Normal air movement Neuro: Normal speech Psych/Mental Status: Mental status NL, Mood NL Skin: No rashes Diagnosis RENAL FAILURE: Chronic (CKD stage III) Assessment Assessment 1. PAFIB/a-flutter with RVR: Presently back in sinus rhythm. Continue amiodarone for rhythm maintenance and eliquis for stroke prophylaxis. 2. Acute on chronic diastolic CHF: Recent EF at 50%. Better compensated. Due to recurrent episodes of CHF, patient was initially recommended outpatient cardiac catheterization but he stated today that he would like to finish this procedure this admission. Plan for this tomorrow. Risks and benefits were explained. 3. SSS s/p PPM (Biotronik), DDD-CLS, recent device check showed normal function 4. Hypertension: Controlled 5. DM2/HLP: Per IM 6. 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 Tobaccoism; discussed/encouraged cessation Plan Plan of Care Problems Medical Problems: (1) Anemia Status: Acute (2) Atrial flutter with rapid ventricular response Status: Acute (3) CHF (congestive heart failure) Status: Acute (4) Hypomagnesemia Status: Acute (5) Renal insufficiency Status: Acute (6) Shortness of breath Status: Acute Comment Review of Relevant I have reviewed the following items jacquelin (where applicable) has been applied. Medications Current Medications Amiodarone HCl (Cordarone) 200 mg DAILY PO Last administered on 12/19/18at 12:35; Start 12/19/18 at 12:30 Diltiazem HCl (Cardizem 24hr Cd) 120 mg DAILY PO Last administered on 12/19/18at 12:34; Start 12/19/18 at 12:30 Vitals/I & O Vital Sign - Last 24 Hours 12/19/18 12/19/18 12/19/18 12/19/18 09:47 10:47 11:00 11:47 Temp 97.6 97.6 Pulse 70 62 64 64 Resp 20 B/P (MAP) 107/66 (80) 114/64 (81) 112/67 (82) 114/64 (81) Pulse Ox 97 O2 Delivery Nasal Cannula O2 Flow Rate 2.0 12/19/18 12/19/18 12/19/18 12/19/18 12:34 12:35 12:47 13:47 Pulse 65 64 62 62 B/P (MAP) 114/64 114/64 111/86 (94) 113/68 (83) 12/19/18 12/19/18 12/19/18 12/19/18 14:28 19:20 20:00 22:01 Temp 97.8 97.8 Pulse 66 66 78 Resp 21 B/P (MAP) 125/56 (79) 144/77 (99) 144/77 Pulse Ox 92 O2 Delivery Room Air Room Air 12/19/18 12/20/18 12/20/18 23:05 03:50 08:18 Temp 98.0 98.2 97.5 98.0 98.2 97.5 Pulse 65 63 68 Resp 22 21 16 B/P (MAP) 114/60 (78) 118/62 (80) 144/64 (90) Pulse Ox 92 92 94 O2 Delivery Room Air Room Air Room Air Intake and Output 12/19/18 12/19/18 12/20/18 14:59 22:59 06:59 Intake Total 180 ml 180 ml 210 ml Output Total 300 ml 700 ml Balance 180 ml -120 ml -490 ml CARLTON MARTINEZ MD December 20, 2018 09:05
[2018-12-20] MEDS: MAGNESIUM CHLORIDE ER 64 MG TABLET.ER PO SCH (09:24)
[2018-12-20] MEDS: APIXABAN 2.5 MG TABLET. PO SCH ×2 (09:24→21:18)
[2018-12-20] MEDS: PANTOPRAZOLE 40 MG TABLET.DR. PO SCH (09:24)
[2018-12-20] MEDS: AMIODARONE HCL 200 MG TABLET. PO SCH (09:25)
[2018-12-20] MEDS: METOPROLOL TART IMMED RELEASE 50 MG TABLET. PO SCH ×2 (09:26→21:19)
--- NOTE | 2018-12-20 09:32 | PDOC ---
PROGRESS NOTES History of Present Illness History of Present Illness VTE Prophylaxis Ordered VTE Prophylaxis Devices: Yes VTE Pharmacological Prophylaxi: Yes Assessment/Plan Assessment/Plan IMPRESSION: Worsening of pulmonary edema/infiltrate A. fib ///flutter with RVR Left ventricle systolic function is low normal. recent echo The Ejection Fraction is 50%. Grade I-abnormal relaxation pattern. Pacer lead noted in RV/RA. Mild tricuspid regurgitation. moderate pulmonary hypertension. PA pressure was estimated at 55 mmHg. POORNIMA, vasomotor CKD STAGE 3-4 Plan , THEN 200MG PO DAILY AMIODARONE LOADING DOSE Biotronik to interrogate device BB for rate control TSH Eliquis for stroke prophylaxis heparin drip iv Cardizem drip consult cardiology DVT prophylaxis Full code Serial enzymes Serial EKGs Home meds d/c metformin due to CKD GI prophylaxis NEPHROLOGY CONSULT PT/OT 27 min pt exam, chart review, > 50% of time with exam, chart review, pt care coordination Vitals Vitals Vital Signs Date Time Temp Pulse Resp B/P (MAP) Pulse Ox O2 Delivery O2 Flow Rate FiO2 12/20/18 09:26 65 133/72 12/20/18 08:18 97.5 16 94 Room Air 97.5 12/19/18 11:00 2.0 Physical Exam General: Alert, Oriented X3, Cooperative, No acute distress Heart: Other (IRR rare 68) Lungs: Clear Abdomen: Normal bowel sounds, Soft Extremities: No cyanosis Skin: No rashes Assessment and Plan Assessmemt and Plan Problems Medical Problems: (1) Anemia Status: Acute (2) Atrial flutter with rapid ventricular response Status: Acute (3) CHF (congestive heart failure) Status: Acute (4) Hypomagnesemia Status: Acute (5) Renal insufficiency Status: Acute (6) Shortness of breath Status: Acute Comment Review of Relevant I have reviewed the following items jacquelin (where applicable) has been applied. Labs Laboratory Tests Test 12/18/18 09:39 12/18/18 14:05 12/18/18 14:25 12/18/18 17:30 White Blood Count 7.3 x10^3/uL (4.0-11.0) Red Blood Count 4.25 x10^6/uL (4.30-5.70) Hemoglobin 11.9 g/dL (13.0-17.5) Hematocrit 37.7 % (39.0-53.0) Mean Corpuscular Volume 89 fL (79-100) Mean Corpuscular Hemoglobin 28 pg (25-35) Mean Corpuscular Hemoglobin Concent 31 g/dL (31-37) Red Cell Distribution Width 14.6 % (11.5-14.5) Platelet Count 263 x10^3/uL (140-400) Neutrophils (%) (Auto) 71 % (31-73) Lymphocytes (%) (Auto) 16 % (24-48) Monocytes (%) (Auto) 10 % (0-9) Eosinophils (%) (Auto) 2 % (0-3) Basophils (%) (Auto) 1 % (0-3) Neutrophils # (Auto) 5.2 x10^3uL (1.8-7.7) Lymphocytes # (Auto) 1.2 x10^3/uL (1.0-4.8) Monocytes # (Auto) 0.7 x10^3/uL (0.0-1.1) Eosinophils # (Auto) 0.1 x10^3/uL (0.0-0.7) Basophils # (Auto) 0.1 x10^3/uL (0.0-0.2) Prothrombin Time 16.0 SEC (11.7-14.0) Prothromb Time International Ratio 1.3 (0.8-1.1) Sodium Level 142 mmol/L (136-145) Potassium Level 3.9 mmol/L (3.5-5.1) Chloride Level 105 mmol/L (98-107) Carbon Dioxide Level 24 mmol/L (21-32) Anion Gap 13 (6-14) Blood Urea Nitrogen 26 mg/dL (8-26) Creatinine 2.0 mg/dL (0.7-1.3) Estimated GFR (Cockcroft-Gault) 39.2 BUN/Creatinine Ratio 13 (6-20) Glucose Level 154 mg/dL (70-99) Calcium Level 9.0 mg/dL (8.5-10.1) Magnesium Level 1.7 mg/dL (1.8-2.4) Total Bilirubin 0.6 mg/dL (0.2-1.0) Aspartate Amino Transf (AST/SGOT) 17 U/L (15-37) Alanine Aminotransferase (ALT/SGPT) 19 U/L (16-63) Alkaline Phosphatase 78 U/L (46-116) Creatine Kinase 82 U/L (39-308) Troponin I Quantitative < 0.017 ng/mL (0.000-0.055) < 0.017 ng/mL (0.000-0.055) < 0.017 ng/mL (0.000-0.055) WH-Yko-A-Type Natriuretic Peptide 1977 pg/mL (0-449) Total Protein 7.3 g/dL (6.4-8.2) Albumin 3.3 g/dL (3.4-5.0) Albumin/Globulin Ratio 0.8 (1.0-1.7) Urine Color Yellow Urine Clarity Clear Urine pH 5.5 Urine Specific [place] 1.025 Urine Protein Negative mg/dL (NEG-TRACE) Urine Glucose (UA) Negative mg/dL (NEG) Urine Ketones (Stick) Negative mg/dL (NEG) Urine Blood Negative (NEG) Urine Nitrite Negative (NEG) Urine Bilirubin Small (NEG) Urine Urobilinogen Dipstick 1.0 mg/dL (0.2 mg/dL) Urine Leukocyte Esterase Trace (NEG) Urine RBC 0 /HPF (0-2) Urine WBC 1-4 /HPF (0-4) Urine Squamous Epithelial Cells Occ /LPF Urine Bacteria 0 /HPF (0-FEW) Urine Mucus Mod /LPF Test 12/19/18 03:50 White Blood Count 6.4 x10^3/uL (4.0-11.0) Red Blood Count 3.73 x10^6/uL (4.30-5.70) Hemoglobin 10.7 g/dL (13.0-17.5) Hematocrit 33.1 % (39.0-53.0) Mean Corpuscular Volume 89 fL (79-100) Mean Corpuscular Hemoglobin 29 pg (25-35) Mean Corpuscular Hemoglobin Concent 32 g/dL (31-37) Red Cell Distribution Width 14.7 % (11.5-14.5) Platelet Count 220 x10^3/uL (140-400) Neutrophils (%) (Auto) 69 % (31-73) Lymphocytes (%) (Auto) 17 % (24-48) Monocytes (%) (Auto) 9 % (0-9) Eosinophils (%) (Auto) 4 % (0-3) Basophils (%) (Auto) 1 % (0-3) Neutrophils # (Auto) 4.4 x10^3uL (1.8-7.7) Lymphocytes # (Auto) 1.1 x10^3/uL (1.0-4.8) Monocytes # (Auto) 0.6 x10^3/uL (0.0-1.1) Eosinophils # (Auto) 0.2 x10^3/uL (0.0-0.7) Basophils # (Auto) 0.1 x10^3/uL (0.0-0.2) Sodium Level 139 mmol/L (136-145) Potassium Level 3.8 mmol/L (3.5-5.1) Chloride Level 103 mmol/L (98-107) Carbon Dioxide Level 26 mmol/L (21-32) Anion Gap 10 (6-14) Blood Urea Nitrogen 28 mg/dL (8-26) Creatinine 1.7 mg/dL (0.7-1.3) Estimated GFR (Cockcroft-Gault) 47.3 Glucose Level 174 mg/dL (70-99) Calcium Level 8.5 mg/dL (8.5-10.1) Phosphorus Level 3.4 mg/dL (2.6-4.7) Albumin 2.9 g/dL (3.4-5.0) Medications Current Medications Diltiazem HCl (Cardizem Iv Push) 20 mg 1X ONCE IVP Last administered on 12/18/18at 09:29; Start 12/18/18 at 09:30; Stop 12/18/18 at 09:31; Status DC Amiodarone HCl 900 mg/Dextrose 518 ml @ 0 mls/hr 1X ONCE IV Last administered on 12/18/18at 10:02; Start 12/18/18 at 10:00; Stop 12/18/18 at 10:01; Status DC Diltiazem HCl 125 mg/Dextrose 125 ml @ 10 mls/hr 1X ONCE IV Last administered on 12/18/18at 09:45; Start 12/18/18 at 10:00; Stop 12/18/18 at 22:29; Status DC Diltiazem HCl (Cardizem Iv Push) 25 mg STK-MED ONCE .ROUTE ; Start 12/18/18 at 09:24; Stop 12/18/18 at 09:25; Status DC Heparin Sodium/ Dextrose 500 ml @ 0 mls/hr CONT PRN IV SEE I/O RECORD; Start 12/18/18 at 11:00; Stop 12/18/18 at 11:00; Status Cancel Heparin Sodium/ Dextrose 500 ml @ 20 mls/hr CONT PRN IV SEE I/O RECORD Last administered on 12/18/18at 11:21; Start 12/18/18 at 11:00; Stop 12/18/18 at 11:49; Status DC Heparin Sodium (Porcine) (Heparin Sodium) 2,050 unit PRN Q6HRS PRN IV FOR UFH LEVEL LESS THAN 0.2; Start 12/18/18 at 11:00; Stop 12/18/18 at 11:50; Status DC Apixaban (Eliquis) 5 mg BID PO ; Start 12/18/18 at 12:30; Stop 12/18/18 at 12:30; Status DC Atorvastatin Calcium (Lipitor) 10 mg HS PO Last administered on 12/19/18at 22:00; Start 12/18/18 at 21:00 Non-Formulary Medication (Lisinopril/ Hydrochlorothiazide (Lisinopril-Hctz 20- 12.5 Mg Tab)) 1 tab DAILY PO ; Start 12/19/18 at 09:00; Status UNV Magnesium Chloride (Mag Delay) 64 mg DAILY PO Last administered on 12/20/18at 09:24; Start 12/18/18 at 12:30 Non-Formulary Medication (Metformin Hcl ) 500 mg BIDWMEALS PO ; Start 12/18/18 at 17:00; Stop 12/18/18 at 17:00; Status DC Metoprolol Tartrate (Lopressor) 100 mg BID PO Last administered on 12/20/18at 09:26; Start 12/18/18 at 12:30 Lisinopril (Prinivil) 20 mg DAILY PO Last administered on 12/19/18at 08:54; Start 12/18/18 at 12:30 Hydrochlorothiazide (Microzide) 12.5 mg DAILY PO Last administered on 12/19/18at 08:54; Start 12/18/18 at 12:30 Info (Anti-Coagulation Monitoring By Pharmacy) 1 each PRN DAILY PRN MC SEE COMMENTS; Start 12/18/18 at 12:00 Pantoprazole Sodium (Protonix) 40 mg DAILYAC PO Last administered on 12/20/18at 09:24; Start 12/18/18 at 12:00 Heparin Sodium/ Dextrose 500 ml @ 20 mls/hr CONT PRN IV SEE I/O RECORD; Start 12/18/18 at 12:00; Stop 12/18/18 at 12:47; Status DC Heparin Sodium (Porcine) (Heparin Sodium) 2,050 unit PRN Q6HRS PRN IV FOR UFH LEVEL LESS THAN 0.2; Start 12/18/18 at 12:00; Stop 12/19/18 at 09:50; Status DC Apixaban (Eliquis) 2.5 mg BID PO Last administered on 12/20/18at 09:24; Start 12/18/18 at 21:00 Furosemide (Lasix) 20 mg 1X ONCE IVP Last administered on 12/18/18at 14:40; Start 12/18/18 at 14:15; Stop 12/18/18 at 14:24; Status DC Magnesium Sulfate 50 ml @ 25 mls/hr 1X ONCE IV Last administered on 12/18/18at 14:43; Start 12/18/18 at 15:00; Stop 12/18/18 at 16:59; Status DC Diltiazem HCl 125 mg/Dextrose 125 ml @ 5 mls/hr CONT PRN IV SEE I/O RECORD Last administered on 12/19/18at 10:28; Start 12/18/18 at 22:00; Stop 12/19/18 at 11:48; Status DC Amiodarone HCl 450 mg/Dextrose 259 ml @ 17.26 mls/ hr CONT PRN IV SEE I/O RECORD; Start 12/19/18 at 05:00; Stop 12/19/18 at 11:48; Status DC Amiodarone HCl (Cordarone) 200 mg DAILY PO Last administered on 12/20/18at 09:25; Start 12/19/18 at 12:30 Diltiazem HCl (Cardizem 24hr Cd) 120 mg DAILY PO Last administered on 12/20/18at 09:25; Start 12/19/18 at 12:30 Active Scripts Active Reported Diltiazem 24HR Cd (Diltiazem Hcl) 180 Mg Cap.er.24h 240 Mg PO DAILY Metoprolol Tartrate 100 Mg Tablet 1 Tab PO BID Lisinopril-Hctz 20-12.5 Mg Tab (Lisinopril/Hydrochlorothiazide) 1 Each Tablet 1 Tab PO DAILY Eliquis (Apixaban) 5 Mg Tablet 5 Mg PO BID Atorvastatin Calcium 10 Mg Tablet 10 Mg PO HS Metformin Hcl 500 Mg Tablet 500 Mg PO BIDWMEALS Vitals/I & O Vital Sign - Last 24 Hours 12/19/18 12/19/18 12/19/18 12/19/18 09:47 10:47 11:00 11:47 Temp 97.6 97.6 Pulse 70 62 64 64 Resp 20 B/P (MAP) 107/66 (80) 114/64 (81) 112/67 (82) 114/64 (81) Pulse Ox 97 O2 Delivery Nasal Cannula O2 Flow Rate 2.0 12/19/18 12/19/18 12/19/18 12/19/18 12:34 12:35 12:47 13:47 Pulse 65 64 62 62 B/P (MAP) 114/64 114/64 111/86 (94) 113/68 (83) 12/19/18 12/19/18 12/19/18 12/19/18 14:28 19:20 20:00 22:01 Temp 97.8 97.8 Pulse 66 66 78 Resp 21 B/P (MAP) 125/56 (79) 144/77 (99) 144/77 Pulse Ox 92 O2 Delivery Room Air Room Air 12/19/18 12/20/18 12/20/18 12/20/18 23:05 03:50 08:18 09:25 Temp 98.0 98.2 97.5 98.0 98.2 97.5 Pulse 65 63 68 63 Resp 22 21 16 B/P (MAP) 114/60 (78) 118/62 (80) 144/64 (90) 133/72 Pulse Ox 92 92 94 O2 Delivery Room Air Room Air Room Air 12/20/18 12/20/18 09:25 09:26 Pulse 64 65 B/P (MAP) 133/72 133/72 Intake and Output 12/19/18 12/19/18 12/20/18 14:59 22:59 06:59 Intake Total 180 ml 180 ml 210 ml Output Total 300 ml 700 ml Balance 180 ml -120 ml -490 ml FULBRIGHT,ABIDA W MD December 20, 2018 09:32
[2018-12-20 11:06] VITALS: BP 138/56
[2018-12-20] MEDS: LISINOPRIL 20 MG TABLET PO SCH (11:12)
[2018-12-20] MEDS: hydroCHLOROthiazide 12.5 MG CAPSULE PO SCH (11:12)
[2018-12-20 15:10] VITALS: BP 130/64
[2018-12-20 19:20] VITALS: BP 139/67
[2018-12-20] MEDS: ATORVASTATIN CALCIUM 10 MG TABLET. PO SCH (21:18)
[2018-12-20 23:10] VITALS: BP 127/68
[2018-12-21] VITALS (7 sets, daily range): BP systolic 116–140; BP diastolic 52–82
[2018-12-21 04:48] LABS: BASO % 1 % (0-3); EOS # 0.2 x10^3/uL (0.0-0.7); EOS % 3 % (0-3); HEMATOCRIT 35.7 % (39.0-53.0); HEMOGLOBIN 11.3 g/dL (13.0-17.5); LYMPH # 1.1 x10^3/uL (1.0-4.8); LYMPH % 17 % (24-48); MEAN CORPUSCULAR HEMOGLOBIN 28 pg (25-35); MEAN CORPUSCULAR HGB CONC 32 g/dL (31-37); MEAN CORPUSCULAR VOLUME 88 fL (79-100); MONO # 0.7 x10^3/uL (0.0-1.1); MONO % 10 % (0-9); NEUT # 4.4 x10^3uL (1.8-7.7); NEUT % 69 % (31-73); PLATELET COUNT 232 x10^3/uL (140-400); RED BLOOD COUNT 4.04 x10^6/uL (4.30-5.70); RED CELL DISTRIBUTION WIDTH 14.5 % (11.5-14.5); WHITE BLOOD COUNT 6.4 x10^3/uL (4.0-11.0)
[2018-12-21 05:33] LABS: ALBUMIN/GLOBULIN RATIO 0.8 (1.0-1.7); CALCIUM 8.7 mg/dL (8.5-10.1); CREATININE 1.4 mg/dL (0.7-1.3); GFR 59.2; POTASSIUM 3.8 mmol/L (3.5-5.1); TOTAL BILIRUBIN 0.4 mg/dL (0.2-1.0); TOTAL PROTEIN 6.8 g/dL (6.4-8.2)
[2018-12-21] MEDS ORDERED: LIDOCAINE 1% PF 2 ML VIAL. ONE (09:00)
[2018-12-21] MEDS ORDERED: IODIXANOL 320 MG/ML 100 ML VIAL. ONE (09:00)
[2018-12-21] MEDS ORDERED: HEPARIN for IV BOLUS 10,000 UNIT/10 ML VIAL. ONE (09:03)
[2018-12-21] MEDS ORDERED: VERAPAMIL 5 MG/2 ML VIAL. ONE (09:03)
[2018-12-21] MEDS ORDERED: MIDAZOLAM HCL/PF 2 MG/2 ML VIAL. ONE (09:03)
[2018-12-21] MEDS ORDERED: fentaNYL PF VIAL 100 MCG/2 ML VIAL ONE (09:03)
[2018-12-21] MEDS ORDERED: NITROGLYCERIN 200 MCG/2 ML SYRINGE FOR CATH/VASC LAB. ONE (09:03)
[2018-12-21] MEDS ORDERED: LIDOCAINE 1% PF 2 ML VIAL. INJ ONE (09:45)
[2018-12-21] MEDS ORDERED: HEPARIN for IV BOLUS 10,000 UNIT/10 ML VIAL. IART ONE (09:45)
[2018-12-21] MEDS ORDERED: fentaNYL PF VIAL 100 MCG/2 ML VIAL IV ONE (09:45)
[2018-12-21] MEDS ORDERED: MIDAZOLAM HCL/PF 2 MG/2 ML VIAL. IV ONE (09:45)
[2018-12-21] MEDS ORDERED: NITROGLYCERIN 200 MCG/2 ML SYRINGE FOR CATH/VASC LAB. IART ONE (09:45)
[2018-12-21] MEDS ORDERED: CONTRAST GIVEN. MC PRN (09:45)
[2018-12-21] MEDS ORDERED: IODIXANOL 320 MG/ML 100 ML VIAL. IART ONE (09:45)
[2018-12-21] MEDS ORDERED: VERAPAMIL 5 MG/2 ML VIAL. IART ONE (09:45)
--- NOTE | 2018-12-21 09:48 | PDOC ---
MODERATE SEDATION ASSESSMENT RISKS/ALTERNATIVES Risks/Alternatives Risks and alternatives of this type of sedation and procedure discussed with: RISK/ALTERNATIVES: Patient H & P ON CHART H & P H & P on chart and reviewed for co-morbid conditions and appropriate labs. H&P ON CHART: Yes STATUS PREG STATUS ASSESSED: N/A MEDS/ALLERGIES REVIEWED Meds/Allergies Reviewed Medications and Allergies including time and route of recently administered narcotics and sedatives. MEDS/ALLERGIES REVIEWED: Yes ASA RATING ASA RATING: III AIRWAY ASSESSMENT Airway Assessment Airway patency, oral function limitations, presence of caps, crowns, dentures, partials, and ability to extend neck assessed. AIRWAY ASSESSMENT: Yes MALLAMPATI SCORE MALLAMPATI SCORE: II PRE-SEDATION ASSESSMENT PRE-SEDATION ASSESSMENT: Yes CARLTON MARTINEZ MD December 21, 2018 09:48
--- NOTE | 2018-12-21 09:53 | CARD ---
MR#: [id number] Date of Study: 12/21/2018 Ordering Physician: CARLTON NELSON, Referring Physician: ABIDA VARGAS, Tech: RT Michelle (R) JOSE APPROVED REPORT Technologist: RT Michelle (R) JOSE Nurse: Nan Rivera R.N. Procedure(s) performed: Left heart catheterization, selective coronary angiography via right transrad ial approach Fluoro time 2.7 mins Dose 31.8669 Gycm2 Contrast 36 ml Visipaque Moderate sedation 18 MINUTES INDICATION The indication(s) include : Recurrent acute on chronic diastolic heart failure. [facility] Clinical Frailty Scale [facility] Clinical Frailty Scale: Managing Well Heart Failure Heart Failure: Yes If Yes, Newly Diagnosed: No If Yes, HF Type: Diastolic If Yes, NYHA Class: Class II PROCEDURE NARRATIVE After explaining the risks, benefits and alternative options, informed consent was obtained from ricardo ent. Patient was brought to the cardiac Valve Repairer and right wrist was prepped and draped in the usual fashion after confirming a positive modified Michael's test. Arterial access was obtained in the righ t radial artery and a 6 [place] sheath was inserted. 6 [place] Shola catheter was used to perform frida ective angiography of the left and right coronary arteries. LVEDP and transaortic gradients were esther ured. Left ventriculography was not performed due to elevated creatinine. Patient tolerated the proce dure well. Hemostasis was achieved using TR band. There were no immediate complications. The follo wing findings were noted. FINDINGS 1. Hemodynamics: Left ventricular end-diastolic pressure of 14 mmHg. No pullback gradient across th e aortic valve. 2. Coronary angiography: a. The left main coronary artery arose from the left sinus of Valsalva, gave rise to the left anteri or descending and left circumflex arteries and did not show any significant stenosis. b. The left anterior descending artery did not show any significant stenosis. c. The left circumflex artery did not show any significant stenosis. d. The right coronary artery was a large and dominant vessel arising from the right sinus of Valsalv a that did not show any significant stenosis. Conclusion No significant coronary artery disease Recommendations Medical Therapy Signed by : Carlton Nelson, Electronically Approved : 12/21/2018 09:53:31
--- NOTE | 2018-12-21 09:56 | PDOC ---
PROGRESS NOTES History of Present Illness History of Present Illness VTE Prophylaxis Ordered VTE Prophylaxis Devices: Yes VTE Pharmacological Prophylaxi: Yes Assessment/Plan Assessment/Plan IMPRESSION: Worsening of pulmonary edema/infiltrate A. fib ///flutter with RVR Left ventricle systolic function is low normal. recent echo The Ejection Fraction is 50%. Grade I-abnormal relaxation pattern. Pacer lead noted in RV/RA. Mild tricuspid regurgitation. moderate pulmonary hypertension. PA pressure was estimated at 55 mmHg. POORNIMA, vasomotor CKD STAGE 3-4 Plan , THEN 200MG PO DAILY AMIODARONE LOADING DOSE Biotronik to interrogate device BB for rate control TSH Eliquis for stroke prophylaxis heparin drip iv Cardizem drip consult cardiology DVT prophylaxis Full code Serial enzymes Serial EKGs Home meds d/c metformin due to CKD GI prophylaxis NEPHROLOGY CONSULT PT/OT 37 min pt exam, chart review, > 50% of time with exam, chart review, pt care coordination Vitals Vitals Vital Signs Date Time Temp Pulse Resp B/P (MAP) Pulse Ox O2 Delivery O2 Flow Rate FiO2 12/21/18 09:45 80 16 96 Room Air 12/21/18 07:00 97.6 131/65 (87) 97.6 Physical Exam General: Alert, Oriented X3, Cooperative, No acute distress Heart: Other (IRR rare 68) Lungs: Clear Abdomen: Normal bowel sounds, Soft Extremities: No cyanosis Skin: No rashes Labs LABS Dose 31.8669 Gycm2 Contrast 36 ml Visipaque Moderate sedation 18 MINUTES INDICATION The indication(s) include : Recurrent acute on chronic diastolic heart failure. [facility] Clinical Frailty Scale [facility] Clinical Frailty Scale: Managing Well Heart Failure Heart Failure: Yes If Yes, Newly Diagnosed: No If Yes, HF Type: Diastolic If Yes, NYHA Class: Class II PROCEDURE NARRATIVE After explaining the risks, benefits and alternative options, informed consent was obtained from patient. Patient was brought to the cardiac [facility] [employer] and right wrist was prepped and draped in the usual fashion after confirming a positive modified Michael's test. Arterial access was obtained in the right radial artery and a 6 Japanese sheath was inserted. 6 Japanese Shola catheter was used to perform selective angiography of the left and right coronary arteries. LVEDP and transaortic gradients were measured. Left ventriculography was not performed due to elevated creatinine. Patient tolerated the procedure well. Hemostasis was achieved using TR band. There were no immediate complications. The following findings were noted. FINDINGS 1. Hemodynamics: Left ventricular end-diastolic pressure of 14 mmHg. No pullback gradient across the aortic valve. 2. Coronary angiography: a. The left main coronary artery arose from the left sinus of Valsalva, gave rise to the left anterior descending and left circumflex arteries and did not show any significant stenosis. b. The left anterior descending artery did not show any significant stenosis. c. The left circumflex artery did not show any significant stenosis. d. The right coronary artery was a large and dominant vessel arising from the right sinus of Valsalva that did not show any significant stenosis. Conclusion No significant coronary artery disease Recommendations Medical Therapy Signed by : Chon Nelson, Electronically Approved : 12/21/2018 09:53:31 Laboratory Tests Test 12/21/18 04:10 White Blood Count 6.4 x10^3/uL (4.0-11.0) Red Blood Count 4.04 x10^6/uL (4.30-5.70) Hemoglobin 11.3 g/dL (13.0-17.5) Hematocrit 35.7 % (39.0-53.0) Mean Corpuscular Volume 88 fL (79-100) Mean Corpuscular Hemoglobin 28 pg (25-35) Mean Corpuscular Hemoglobin Concent 32 g/dL (31-37) Red Cell Distribution Width 14.5 % (11.5-14.5) Platelet Count 232 x10^3/uL (140-400) Neutrophils (%) (Auto) 69 % (31-73) Lymphocytes (%) (Auto) 17 % (24-48) Monocytes (%) (Auto) 10 % (0-9) Eosinophils (%) (Auto) 3 % (0-3) Basophils (%) (Auto) 1 % (0-3) Neutrophils # (Auto) 4.4 x10^3uL (1.8-7.7) Lymphocytes # (Auto) 1.1 x10^3/uL (1.0-4.8) Monocytes # (Auto) 0.7 x10^3/uL (0.0-1.1) Eosinophils # (Auto) 0.2 x10^3/uL (0.0-0.7) Basophils # (Auto) 0.0 x10^3/uL (0.0-0.2) Sodium Level 139 mmol/L (136-145) Potassium Level 3.8 mmol/L (3.5-5.1) Chloride Level 104 mmol/L (98-107) Carbon Dioxide Level 27 mmol/L (21-32) Anion Gap 8 (6-14) Blood Urea Nitrogen 16 mg/dL (8-26) Creatinine 1.4 mg/dL (0.7-1.3) Estimated GFR (Cockcroft-Gault) 59.2 BUN/Creatinine Ratio 11 (6-20) Glucose Level 113 mg/dL (70-99) Calcium Level 8.7 mg/dL (8.5-10.1) Total Bilirubin 0.4 mg/dL (0.2-1.0) Aspartate Amino Transf (AST/SGOT) 16 U/L (15-37) Alanine Aminotransferase (ALT/SGPT) 24 U/L (16-63) Alkaline Phosphatase 83 U/L (46-116) Total Protein 6.8 g/dL (6.4-8.2) Albumin 3.0 g/dL (3.4-5.0) Albumin/Globulin Ratio 0.8 (1.0-1.7) Assessment and Plan Assessmemt and Plan Problems Medical Problems: (1) Anemia Status: Acute (2) Atrial flutter with rapid ventricular response Status: Acute (3) CHF (congestive heart failure) Status: Acute (4) Hypomagnesemia Status: Acute (5) Renal insufficiency Status: Acute (6) Shortness of breath Status: Acute Comment Review of Relevant I have reviewed the following items jacquelin (where applicable) has been applied. Labs Laboratory Tests Test 12/21/18 04:10 White Blood Count 6.4 x10^3/uL (4.0-11.0) Red Blood Count 4.04 x10^6/uL (4.30-5.70) Hemoglobin 11.3 g/dL (13.0-17.5) Hematocrit 35.7 % (39.0-53.0) Mean Corpuscular Volume 88 fL (79-100) Mean Corpuscular Hemoglobin 28 pg (25-35) Mean Corpuscular Hemoglobin Concent 32 g/dL (31-37) Red Cell Distribution Width 14.5 % (11.5-14.5) Platelet Count 232 x10^3/uL (140-400) Neutrophils (%) (Auto) 69 % (31-73) Lymphocytes (%) (Auto) 17 % (24-48) Monocytes (%) (Auto) 10 % (0-9) Eosinophils (%) (Auto) 3 % (0-3) Basophils (%) (Auto) 1 % (0-3) Neutrophils # (Auto) 4.4 x10^3uL (1.8-7.7) Lymphocytes # (Auto) 1.1 x10^3/uL (1.0-4.8) Monocytes # (Auto) 0.7 x10^3/uL (0.0-1.1) Eosinophils # (Auto) 0.2 x10^3/uL (0.0-0.7) Basophils # (Auto) 0.0 x10^3/uL (0.0-0.2) Sodium Level 139 mmol/L (136-145) Potassium Level 3.8 mmol/L (3.5-5.1) Chloride Level 104 mmol/L (98-107) Carbon Dioxide Level 27 mmol/L (21-32) Anion Gap 8 (6-14) Blood Urea Nitrogen 16 mg/dL (8-26) Creatinine 1.4 mg/dL (0.7-1.3) Estimated GFR (Cockcroft-Gault) 59.2 BUN/Creatinine Ratio 11 (6-20) Glucose Level 113 mg/dL (70-99) Calcium Level 8.7 mg/dL (8.5-10.1) Total Bilirubin 0.4 mg/dL (0.2-1.0) Aspartate Amino Transf (AST/SGOT) 16 U/L (15-37) Alanine Aminotransferase (ALT/SGPT) 24 U/L (16-63) Alkaline Phosphatase 83 U/L (46-116) Total Protein 6.8 g/dL (6.4-8.2) Albumin 3.0 g/dL (3.4-5.0) Albumin/Globulin Ratio 0.8 (1.0-1.7) Laboratory Tests Test 12/21/18 04:10 White Blood Count 6.4 x10^3/uL (4.0-11.0) Red Blood Count 4.04 x10^6/uL (4.30-5.70) Hemoglobin 11.3 g/dL (13.0-17.5) Hematocrit 35.7 % (39.0-53.0) Mean Corpuscular Volume 88 fL (79-100) Mean Corpuscular Hemoglobin 28 pg (25-35) Mean Corpuscular Hemoglobin Concent 32 g/dL (31-37) Red Cell Distribution Width 14.5 % (11.5-14.5) Platelet Count 232 x10^3/uL (140-400) Neutrophils (%) (Auto) 69 % (31-73) Lymphocytes (%) (Auto) 17 % (24-48) Monocytes (%) (Auto) 10 % (0-9) Eosinophils (%) (Auto) 3 % (0-3) Basophils (%) (Auto) 1 % (0-3) Neutrophils # (Auto) 4.4 x10^3uL (1.8-7.7) Lymphocytes # (Auto) 1.1 x10^3/uL (1.0-4.8) Monocytes # (Auto) 0.7 x10^3/uL (0.0-1.1) Eosinophils # (Auto) 0.2 x10^3/uL (0.0-0.7) Basophils # (Auto) 0.0 x10^3/uL (0.0-0.2) Sodium Level 139 mmol/L (136-145) Potassium Level 3.8 mmol/L (3.5-5.1) Chloride Level 104 mmol/L (98-107) Carbon Dioxide Level 27 mmol/L (21-32) Anion Gap 8 (6-14) Blood Urea Nitrogen 16 mg/dL (8-26) Creatinine 1.4 mg/dL (0.7-1.3) Estimated GFR (Cockcroft-Gault) 59.2 BUN/Creatinine Ratio 11 (6-20) Glucose Level 113 mg/dL (70-99) Calcium Level 8.7 mg/dL (8.5-10.1) Total Bilirubin 0.4 mg/dL (0.2-1.0) Aspartate Amino Transf (AST/SGOT) 16 U/L (15-37) Alanine Aminotransferase (ALT/SGPT) 24 U/L (16-63) Alkaline Phosphatase 83 U/L (46-116) Total Protein 6.8 g/dL (6.4-8.2) Albumin 3.0 g/dL (3.4-5.0) Albumin/Globulin Ratio 0.8 (1.0-1.7) Medications Current Medications Diltiazem HCl (Cardizem Iv Push) 20 mg 1X ONCE IVP Last administered on 12/18/18at 09:29; Start 12/18/18 at 09:30; Stop 12/18/18 at 09:31; Status DC Amiodarone HCl 900 mg/Dextrose 518 ml @ 0 mls/hr 1X ONCE IV Last administered on 12/18/18at 10:02; Start 12/18/18 at 10:00; Stop 12/18/18 at 10:01; Status DC Diltiazem HCl 125 mg/Dextrose 125 ml @ 10 mls/hr 1X ONCE IV Last administered on 12/18/18at 09:45; Start 12/18/18 at 10:00; Stop 12/18/18 at 22:29; Status DC Diltiazem HCl (Cardizem Iv Push) 25 mg STK-MED ONCE .ROUTE ; Start 12/18/18 at 09:24; Stop 12/18/18 at 09:25; Status DC Heparin Sodium/ Dextrose 500 ml @ 0 mls/hr CONT PRN IV SEE I/O RECORD; Start 12/18/18 at 11:00; Stop 12/18/18 at 11:00; Status Cancel Heparin Sodium/ Dextrose 500 ml @ 20 mls/hr CONT PRN IV SEE I/O RECORD Last administered on 12/18/18at 11:21; Start 12/18/18 at 11:00; Stop 12/18/18 at 11:49; Status DC Heparin Sodium (Porcine) (Heparin Sodium) 2,050 unit PRN Q6HRS PRN IV FOR UFH LEVEL LESS THAN 0.2; Start 12/18/18 at 11:00; Stop 12/18/18 at 11:50; Status DC Apixaban (Eliquis) 5 mg BID PO ; Start 12/18/18 at 12:30; Stop 12/18/18 at 12:30; Status DC Atorvastatin Calcium (Lipitor) 10 mg HS PO Last administered on 12/20/18at 21:18; Start 12/18/18 at 21:00 Non-Formulary Medication (Lisinopril/ Hydrochlorothiazide (Lisinopril-Hctz 20- 12.5 Mg Tab)) 1 tab DAILY PO ; Start 12/19/18 at 09:00; Status UNV Magnesium Chloride (Mag Delay) 64 mg DAILY PO Last administered on 12/20/18at 09:24; Start 12/18/18 at 12:30 Non-Formulary Medication (Metformin Hcl ) 500 mg BIDWMEALS PO ; Start 12/18/18 at 17:00; Stop 12/18/18 at 17:00; Status DC Metoprolol Tartrate (Lopressor) 100 mg BID PO Last administered on 12/20/18at 21 :19; Start 12/18/18 at 12:30 Lisinopril (Prinivil) 20 mg DAILY PO Last administered on 12/20/18at 11:12; Start 12/18/18 at 12:30 Hydrochlorothiazide (Microzide) 12.5 mg DAILY PO Last administered on 12/20/18at 11:12; Start 12/18/18 at 12:30 Info (Anti-Coagulation Monitoring By Pharmacy) 1 each PRN DAILY PRN MC SEE COMMENTS; Start 12/18/18 at 12:00 Pantoprazole Sodium (Protonix) 40 mg DAILYAC PO Last administered on 12/20/18at 09:24; Start 12/18/18 at 12:00 Heparin Sodium/ Dextrose 500 ml @ 20 mls/hr CONT PRN IV SEE I/O RECORD; Start 12/18/18 at 12:00; Stop 12/18/18 at 12:47; Status DC Heparin Sodium (Porcine) (Heparin Sodium) 2,050 unit PRN Q6HRS PRN IV FOR UFH LEVEL LESS THAN 0.2; Start 12/18/18 at 12:00; Stop 12/19/18 at 09:50; Status DC Apixaban (Eliquis) 2.5 mg BID PO Last administered on 12/20/18at 21:18; Start 12/18/18 at 21:00 Furosemide (Lasix) 20 mg 1X ONCE IVP Last administered on 12/18/18at 14:40; Start 12/18/18 at 14:15; Stop 12/18/18 at 14:24; Status DC Magnesium Sulfate 50 ml @ 25 mls/hr 1X ONCE IV Last administered on 12/18/18at 14:43; Start 12/18/18 at 15:00; Stop 12/18/18 at 16:59; Status DC Diltiazem HCl 125 mg/Dextrose 125 ml @ 5 mls/hr CONT PRN IV SEE I/O RECORD Last administered on 12/19/18at 10:28; Start 12/18/18 at 22:00; Stop 12/19/18 at 11:48; Status DC Amiodarone HCl 450 mg/Dextrose 259 ml @ 17.26 mls/ hr CONT PRN IV SEE I/O RECORD; Start 12/19/18 at 05:00; Stop 12/19/18 at 11:48; Status DC Amiodarone HCl (Cordarone) 200 mg DAILY PO Last administered on 12/20/18at 09:25; Start 12/19/18 at 12:30 Diltiazem HCl (Cardizem 24hr Cd) 120 mg DAILY PO Last administered on 12/20/18at 09:25; Start 12/19/18 at 12:30 Iodixanol (Visipaque 320) 100 ml STK-MED ONCE .ROUTE ; Start 12/21/18 at 09:00; Stop 12/21/18 at 09:01; Status DC Lidocaine HCl (Xylocaine-Mpf 1% 2ml Vial) 2 ml STK-MED ONCE .ROUTE ; Start 12/21/18 at 09:00; Stop 12/21/18 at 09:01; Status DC Heparin Sodium/ Sodium Chloride 500 ml @ As Directed STK-MED ONCE .ROUTE ; Start 12/21/18 at 09:00; Stop 12/21/18 at 09:01; Status DC Fentanyl Citrate (Fentanyl 2ml Vial) 100 mcg STK-MED ONCE .ROUTE ; Start 12/21/18 at 09:03; Stop 12/21/18 at 09:04; Status DC Midazolam HCl (Versed) 2 mg STK-MED ONCE .ROUTE ; Start 12/21/18 at 09:03; Stop 12/21/18 at 09:04; Status DC Heparin Sodium (Porcine) (Heparin Sodium) 10,000 unit STK-MED ONCE .ROUTE ; Start 12/21/18 at 09:03; Stop 12/21/18 at 09:04; Status DC Verapamil HCl (Verapamil) 5 mg STK-MED ONCE .ROUTE ; Start 12/21/18 at 09:03; Stop 12/21/18 at 09:04; Status DC Nitroglycerin (Nitroglycerin) 200 mcg STK-MED ONCE .ROUTE ; Start 12/21/18 at 09:03; Stop 12/21/18 at 09:04; Status DC Nitroglycerin (Nitroglycerin) 200 mcg 1X ONCE IART Last administered on 12/21/18at 09:43; Start 12/21/18 at 09:45; Stop 12/21/18 at 09:46; Status DC Verapamil HCl (Verapamil) 2.5 mg 1X ONCE IART Last administered on 12/21/18at 09:43; Start 12/21/18 at 09:45; Stop 12/21/18 at 09:46; Status DC Heparin Sodium (Porcine) (Heparin Sodium) 2,500 unit 1X ONCE IART Last administered on 12/21/18at 09:45; Start 12/21/18 at 09:45; Stop 12/21/18 at 09:46; Status DC Heparin Sodium/ Sodium Chloride (HEPARIN for ARTERIAL LINE FLUSH) 1,000 unit 1X ONCE IART Last administered on 12/21/18at 09:43; Start 12/21/18 at 09:45; Stop 12/21/18 at 09:46; Status DC Midazolam HCl (Versed) 2 mg 1X ONCE IV Last administered on 12/21/18at 09:44; Start 12/21/18 at 09:45; Stop 12/21/18 at 09:46; Status DC Fentanyl Citrate (Fentanyl 2ml Vial) 100 mcg 1X ONCE IV Last administered on 12/21/18at 09:44; Start 12/21/18 at 09:45; Stop 12/21/18 at 09:46; Status DC Iodixanol (Visipaque 320) 36 ml 1X ONCE IART Last administered on 12/21/18at 09:43; Start 12/21/18 at 09:45; Stop 12/21/18 at 09:46; Status DC Lidocaine HCl (Xylocaine-Mpf 1% 2ml Vial) 2 ml 1X ONCE INJ Last administered on 12/21/18at 09:44; Start 12/21/18 at 09:45; Stop 12/21/18 at 09:46; Status DC Info (CONTRAST GIVEN -- Rx MONITORING) 1 each PRN DAILY PRN MC SEE COMMENTS; Start 12/21/18 at 09:45; Stop 12/23/18 at 09:44 Sodium Chloride 1,000 ml @ 60 mls/hr [id number] IV ; Start 12/21/18 at 09:48 Nitroglycerin (Nitrostat) 0.4 mg PRN Q5MIN PRN SL CHEST PAIN; Start 12/21/18 at 10:00 Active Scripts Active Reported Diltiazem 24HR Cd (Diltiazem Hcl) 180 Mg Cap.er.24h 240 Mg PO DAILY Metoprolol Tartrate 100 Mg Tablet 1 Tab PO BID Lisinopril-Hctz 20-12.5 Mg Tab (Lisinopril/Hydrochlorothiazide) 1 Each Tablet 1 Tab PO DAILY Eliquis (Apixaban) 5 Mg Tablet 5 Mg PO BID Atorvastatin Calcium 10 Mg Tablet 10 Mg PO HS Metformin Hcl 500 Mg Tablet 500 Mg PO BIDWMEALS Vitals/I & O Vital Sign - Last 24 Hours 12/20/18 12/20/18 12/20/18 12/20/18 11:06 11:12 15:10 19:20 Temp 97.8 98.2 98.8 97.8 98.2 98.8 Pulse 66 67 67 68 Resp 18 18 18 B/P (MAP) 138/56 (83) 138/57 130/64 (86) 139/67 (91) Pulse Ox 93 94 93 O2 Delivery Room Air Room Air Room Air 12/20/18 12/20/18 12/20/18 12/21/18 20:00 21:19 23:10 03:15 Temp 98.1 98.2 98.1 98.2 Pulse 68 82 74 Resp 20 20 B/P (MAP) 139/67 127/68 (87) 134/64 (87) Pulse Ox 95 95 O2 Delivery Room Air Room Air Room Air 12/21/18 12/21/18 12/21/18 12/21/18 07:00 07:30 09:43 09:44 Temp 97.6 97.6 Pulse 69 78 Resp 18 16 B/P (MAP) 131/65 (87) Pulse Ox 93 O2 Delivery Room Air Room Air Room Air 12/21/18 09:45 Pulse 80 Resp 16 Pulse Ox 96 O2 Delivery Room Air Intake and Output 12/20/18 12/20/18 12/21/18 15:00 23:00 07:00 Intake Total 360 ml 180 ml 200 ml Output Total 200 ml 1000 ml Balance 360 ml -20 ml -800 ml ABIDA VARGAS MD December 21, 2018 09:56
[2018-12-21] MEDS ORDERED: NITROGLYCERIN SUBLINGUAL 0.4 MG BOTTLE OF 25. SL PRN (10:00)
[2018-12-21] MEDS: MAGNESIUM CHLORIDE ER 64 MG TABLET.ER PO SCH (10:40)
[2018-12-21] MEDS: hydroCHLOROthiazide 12.5 MG CAPSULE PO SCH (10:40)
[2018-12-21] MEDS: IV 1/2 NORMAL SALINE 1,000 ML IV SCH (10:40)
[2018-12-21] MEDS: PANTOPRAZOLE 40 MG TABLET.DR. PO SCH (10:40)
[2018-12-21] MEDS: APIXABAN 2.5 MG TABLET. PO SCH ×2 (10:41→21:00)
[2018-12-21] MEDS: LISINOPRIL 20 MG TABLET PO SCH (10:41)
[2018-12-21] MEDS: METOPROLOL TART IMMED RELEASE 50 MG TABLET. PO SCH ×2 (10:42→21:00)
[2018-12-21] MEDS: AMIODARONE HCL 200 MG TABLET. PO SCH (10:50)
--- NOTE | 2018-12-21 11:16 | NUR ---
SS following for discharge planning. SS reviewed pt chart. Pt is from home. PT/OT recommended halfway unit. SS met with pt to discuss discharge planning and halfway unit. Pt declined halfway unit stating that he did not feel he needed it. Pt reported being agreeable to home healthcare. Pt was previously on services with [facility], ; fax [phone], and was agreeable to returning on services with [facility]. Pt's RN notified.
--- NOTE | 2018-12-21 14:25 | NUR ---
RN NOTE patients TR band removed and transparent dressing applied. patient education provided regarding use of right arm reinforcement needed. patient resting in bed with call light within reach.
[2018-12-21] MEDS: ATORVASTATIN CALCIUM 10 MG TABLET. PO SCH (21:00)
[2018-12-22] MEDS: IV 1/2 NORMAL SALINE 1,000 ML IV SCH (02:28)
[2018-12-22 03:00] VITALS: BP 137/77
[2018-12-22 07:00] VITALS: BP 129/66
[2018-12-22] MEDS: PANTOPRAZOLE 40 MG TABLET.DR. PO SCH (08:02)
[2018-12-22] MEDS: APIXABAN 2.5 MG TABLET. PO SCH (08:03)
[2018-12-22] MEDS: AMIODARONE HCL 200 MG TABLET. PO SCH (08:03)
[2018-12-22] MEDS: METOPROLOL TART IMMED RELEASE 50 MG TABLET. PO SCH (08:04)
[2018-12-22] MEDS: hydroCHLOROthiazide 12.5 MG CAPSULE PO SCH (08:04)
[2018-12-22] MEDS: MAGNESIUM CHLORIDE ER 64 MG TABLET.ER PO SCH (08:04)
[2018-12-22] MEDS: LISINOPRIL 20 MG TABLET PO SCH (08:05)
--- NOTE | 2018-12-22 09:23 | PDOC ---
PROGRESS NOTES History of Present Illness History of Present Illness VTE Prophylaxis Ordered VTE Prophylaxis Devices: Yes VTE Pharmacological Prophylaxi: Yes Assessment/Plan Assessment/Plan IMPRESSION: Worsening of pulmonary edema/infiltrate A. fib ///flutter with RVR Left ventricle systolic function is low normal. recent echo The Ejection Fraction is 50%. Grade I-abnormal relaxation pattern. Pacer lead noted in RV/RA. Mild tricuspid regurgitation. moderate pulmonary hypertension. PA pressure was estimated at 55 mmHg. POORNIMA, vasomotor CKD STAGE 3-4 Plan 200MG PO DAILY AMIODARONE Biotronik to interrogate device BB for rate control TSH Eliquis for stroke prophylaxis heparin drip iv Cardizem drip consult cardiology DVT prophylaxis Full code Serial enzymes Serial EKGs Home meds d/c metformin due to CKD GI prophylaxis NEPHROLOGY CONSULT PT/OT Technologist: Becki Santana, RT (R) Nurse: Nan Rivera R.N. Procedure(s) performed: Left heart catheterization, selective coronary angiography via right transradial approach Fluoro time 2.7 mins Dose 31.8669 Gycm2 Contrast 36 ml Visipaque Moderate sedation 18 MINUTES INDICATION The indication(s) include : Recurrent acute on chronic diastolic heart failure. [facility] Clinical Frailty Scale [facility] Clinical Frailty Scale: Managing Well Heart Failure Heart Failure: Yes If Yes, Newly Diagnosed: No If Yes, HF Type: Diastolic If Yes, NYHA Class: Class II PROCEDURE NARRATIVE After explaining the risks, benefits and alternative options, informed consent was obtained from patient. Patient was brought to the cardiac Before [facility] and right wrist was prepped and draped in the usual fashion after confirming a positive modified Michael's test. Arterial access was obtained in the right radial artery and a 6 Greenlandic sheath was inserted. 6 Green[place]ic Shola catheter was used to perform selective angiography of the left and right coronary arteries. LVEDP and transaortic gradients were measured. Left ventriculography was not performed due to elevated creatinine. Patient tolerated the procedure well. Hemostasis was achieved using TR band. There were no immediate complications. The following findings were noted. FINDINGS 1. Hemodynamics: Left ventricular end-diastolic pressure of 14 mmHg. No pullback gradient across the aortic valve. 2. Coronary angiography: a. The left main coronary artery arose from the left sinus of Valsalva, gave rise to the left anterior descending and left circumflex arteries and did not show any significant stenosis. b. The left anterior descending artery did not show any significant stenosis. c. The left circumflex artery did not show any significant stenosis. d. The right coronary artery was a large and dominant vessel arising from the right sinus of Valsalva that did not show any significant stenosis. Conclusion No significant coronary artery disease 37 min pt exam d/c planning, chart review, > 50% of time with exam, chart review, pt care coordination Vitals Vitals Vital Signs Date Time Temp Pulse Resp B/P (MAP) Pulse Ox O2 Delivery O2 Flow Rate FiO2 12/22/18 08:05 80 129/66 12/22/18 07:57 Room Air 12/22/18 07:00 98.0 18 92 98.0 Physical Exam Physical Exam Identification/Chief Complaint Chief Complaint seen in er , 78 year old male who presents with complaining of heart racing. 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 EKG showed atrial flutter with RVR and send to ER for evaluation. Patient complaining of generalized weakness without focal neuro deficit, fever and chills, chest pain, nausea and vomiting. Past Medical History Cardiovascular: AFIB, CHF, HTN, Hyperlipidemia, Other Pulmonary: COPD CENTRAL NERVOUS SYSTEM: Other GI: No pertinent hx Heme/Onc: No pertinent hx Hepatobiliary: No pertinent hx Psych: No pertinent hx Musculoskeletal: Osteoarthritis Rheumatologic: No pertinent hx Infectious disease: No pertinent hx Renal/: Chronic renal insuff Endocrine: Diabetes Past Surgical History Past Surgical History: Pacemaker Family History Family History: Coronary Artery Disease, Diabetes, High Cholestrol, Hypertension, Stroke Social History Smoke: No ALCOHOL: none Drugs: None General: Alert, Oriented X3, Cooperative, No acute distress Heart: Other (IRR rate 68) Lungs: Clear Abdomen: Normal bowel sounds, Soft Extremities: No cyanosis Skin: No rashes Labs LABS Examination: Ultrasound kidneys HISTORY: History of acute renal insufficiency and chronic kidney disease COMPARISON: None available. Findings: The right kidney measures 9.7 x 4.9 x 4.8 cm. The left kidney measures 13.0 x 4.5 x 5.4 cm. No evidence of hydronephrosis. There is a cystic structure identified in the superior pole of the left kidney measuring 6.7 cm likely a cyst. Urinary bladder is mildly distended.The prostate is moderately enlarged with prostatic calcifications. IMPRESSION: 1. No evidence of hydronephrosis. 2. 6.7 cm cyst left kidney. 3. Moderate prostatomegaly. Electronically signed by: Berto Anderson MD (12/19/2018 7:55 AM) [facility] DICTATED and SIGNED BY: BERTO ANDERSON MD DATE: 12/19/18 0758 Assessment and Plan Assessmemt and Plan Problems Medical Problems: (1) Anemia Status: Acute (2) Atrial flutter with rapid ventricular response Status: Acute (3) CHF (congestive heart failure) Status: Acute (4) Hypomagnesemia Status: Acute (5) Renal insufficiency Status: Acute (6) Shortness of breath Status: Acute Comment Review of Relevant I have reviewed the following items jacquelin (where applicable) has been applied. Labs Laboratory Tests Test 12/21/18 04:10 White Blood Count 6.4 x10^3/uL (4.0-11.0) Red Blood Count 4.04 x10^6/uL (4.30-5.70) Hemoglobin 11.3 g/dL (13.0-17.5) Hematocrit 35.7 % (39.0-53.0) Mean Corpuscular Volume 88 fL (79-100) Mean Corpuscular Hemoglobin 28 pg (25-35) Mean Corpuscular Hemoglobin Concent 32 g/dL (31-37) Red Cell Distribution Width 14.5 % (11.5-14.5) Platelet Count 232 x10^3/uL (140-400) Neutrophils (%) (Auto) 69 % (31-73) Lymphocytes (%) (Auto) 17 % (24-48) Monocytes (%) (Auto) 10 % (0-9) Eosinophils (%) (Auto) 3 % (0-3) Basophils (%) (Auto) 1 % (0-3) Neutrophils # (Auto) 4.4 x10^3uL (1.8-7.7) Lymphocytes # (Auto) 1.1 x10^3/uL (1.0-4.8) Monocytes # (Auto) 0.7 x10^3/uL (0.0-1.1) Eosinophils # (Auto) 0.2 x10^3/uL (0.0-0.7) Basophils # (Auto) 0.0 x10^3/uL (0.0-0.2) Sodium Level 139 mmol/L (136-145) Potassium Level 3.8 mmol/L (3.5-5.1) Chloride Level 104 mmol/L (98-107) Carbon Dioxide Level 27 mmol/L (21-32) Anion Gap 8 (6-14) Blood Urea Nitrogen 16 mg/dL (8-26) Creatinine 1.4 mg/dL (0.7-1.3) Estimated GFR (Cockcroft-Gault) 59.2 BUN/Creatinine Ratio 11 (6-20) Glucose Level 113 mg/dL (70-99) Calcium Level 8.7 mg/dL (8.5-10.1) Total Bilirubin 0.4 mg/dL (0.2-1.0) Aspartate Amino Transf (AST/SGOT) 16 U/L (15-37) Alanine Aminotransferase (ALT/SGPT) 24 U/L (16-63) Alkaline Phosphatase 83 U/L (46-116) Total Protein 6.8 g/dL (6.4-8.2) Albumin 3.0 g/dL (3.4-5.0) Albumin/Globulin Ratio 0.8 (1.0-1.7) Medications Current Medications Diltiazem HCl (Cardizem Iv Push) 20 mg 1X ONCE IVP Last administered on 12/18/18at 09:29; Start 12/18/18 at 09:30; Stop 12/18/18 at 09:31; Status DC Amiodarone HCl 900 mg/Dextrose 518 ml @ 0 mls/hr 1X ONCE IV Last administered on 12/18/18at 10:02; Start 12/18/18 at 10:00; Stop 12/18/18 at 10:01; Status DC Diltiazem HCl 125 mg/Dextrose 125 ml @ 10 mls/hr 1X ONCE IV Last administered on 12/18/18at 09:45; Start 12/18/18 at 10:00; Stop 12/18/18 at 22:29; Status DC Diltiazem HCl (Cardizem Iv Push) 25 mg STK-MED ONCE .ROUTE ; Start 12/18/18 at 09:24; Stop 12/18/18 at 09:25; Status DC Heparin Sodium/ Dextrose 500 ml @ 0 mls/hr CONT PRN IV SEE I/O RECORD; Start 12/18/18 at 11:00; Stop 12/18/18 at 11:00; Status Cancel Heparin Sodium/ Dextrose 500 ml @ 20 mls/hr CONT PRN IV SEE I/O RECORD Last administered on 12/18/18at 11:21; Start 12/18/18 at 11:00; Stop 12/18/18 at 11:49 ; Status DC Heparin Sodium (Porcine) (Heparin Sodium) 2,050 unit PRN Q6HRS PRN IV FOR UFH LEVEL LESS THAN 0.2; Start 12/18/18 at 11:00; Stop 12/18/18 at 11:50; Status DC Apixaban (Eliquis) 5 mg BID PO ; Start 12/18/18 at 12:30; Stop 12/18/18 at 12:30; Status DC Atorvastatin Calcium (Lipitor) 10 mg HS PO Last administered on 12/21/18at 21:00; Start 12/18/18 at 21:00 Non-Formulary Medication (Lisinopril/ Hydrochlorothiazide (Lisinopril-Hctz 20- 12.5 Mg Tab)) 1 tab DAILY PO ; Start 12/19/18 at 09:00; Status UNV Magnesium Chloride (Mag Delay) 64 mg DAILY PO Last administered on 12/22/18at 08:04; Start 12/18/18 at 12:30 Non-Formulary Medication (Metformin Hcl ) 500 mg BIDWMEALS PO ; Start 12/18/18 at 17:00; Stop 12/18/18 at 17:00; Status DC Metoprolol Tartrate (Lopressor) 100 mg BID PO Last administered on 12/22/18at 08:04; Start 12/18/18 at 12:30 Lisinopril (Prinivil) 20 mg DAILY PO Last administered on 12/22/18at 08:05; Start 12/18/18 at 12:30 Hydrochlorothiazide (Microzide) 12.5 mg DAILY PO Last administered on 12/22/18at 08:04; Start 12/18/18 at 12:30 Info (Anti-Coagulation Monitoring By Pharmacy) 1 each PRN DAILY PRN MC SEE COMM ENTS Last administered on 12/21/18at 12:39; Start 12/18/18 at 12:00 Pantoprazole Sodium (Protonix) 40 mg DAILYAC PO Last administered on 12/22/18at 08:02; Start 12/18/18 at 12:00 Heparin Sodium/ Dextrose 500 ml @ 20 mls/hr CONT PRN IV SEE I/O RECORD; Start 12/18/18 at 12:00; Stop 12/18/18 at 12:47; Status DC Heparin Sodium (Porcine) (Heparin Sodium) 2,050 unit PRN Q6HRS PRN IV FOR UFH LEVEL LESS THAN 0.2; Start 12/18/18 at 12:00; Stop 12/19/18 at 09:50; Status DC Apixaban (Eliquis) 2.5 mg BID PO Last administered on 12/22/18at 08:03; Start 12/18/18 at 21:00 Furosemide (Lasix) 20 mg 1X ONCE IVP Last administered on 12/18/18at 14:40; Start 12/18/18 at 14:15; Stop 12/18/18 at 14:24; Status DC Magnesium Sulfate 50 ml @ 25 mls/hr 1X ONCE IV Last administered on 12/18/18at 14:43; Start 12/18/18 at 15:00; Stop 12/18/18 at 16:59; Status DC Diltiazem HCl 125 mg/Dextrose 125 ml @ 5 mls/hr CONT PRN IV SEE I/O RECORD Last administered on 12/19/18at 10:28; Start 12/18/18 at 22:00; Stop 12/19/18 at 11:48; Status DC Amiodarone HCl 450 mg/Dextrose 259 ml @ 17.26 mls/ hr CONT PRN IV SEE I/O RECORD; Start 12/19/18 at 05:00; Stop 12/19/18 at 11:48; Status DC Amiodarone HCl (Cordarone) 200 mg DAILY PO Last administered on 12/22/18at 08:03; Start 12/19/18 at 12:30 Diltiazem HCl (Cardizem 24hr Cd) 120 mg DAILY PO Last administered on 12/22/18at 08:02; Start 12/19/18 at 12:30 Iodixanol (Visipaque 320) 100 ml STK-MED ONCE .ROUTE ; Start 12/21/18 at 09:00; Stop 12/21/18 at 09:01; Status DC Lidocaine HCl (Xylocaine-Mpf 1% 2ml Vial) 2 ml STK-MED ONCE .ROUTE ; Start 12/21/18 at 09:00; Stop 12/21/18 at 09:01; Status DC Heparin Sodium/ Sodium Chloride 500 ml @ As Directed STK-MED ONCE .ROUTE ; Start 12/21/18 at 09:00; Stop 12/21/18 at 09:01; Status DC Fentanyl Citrate (Fentanyl 2ml Vial) 100 mcg STK-MED ONCE .ROUTE ; Start 12/21/18 at 09:03; Stop 12/21/18 at 09:04; Status DC Midazolam HCl (Versed) 2 mg STK-MED ONCE .ROUTE ; Start 12/21/18 at 09:03; Stop 12/21/18 at 09:04; Status DC Heparin Sodium (Porcine) (Heparin Sodium) 10,000 unit STK-MED ONCE .ROUTE ; Start 12/21/18 at 09:03; Stop 12/21/18 at 09:04; Status DC Verapamil HCl (Verapamil) 5 mg STK-MED ONCE .ROUTE ; Start 12/21/18 at 09:03; Stop 12/21/18 at 09:04; Status DC Nitroglycerin (Nitroglycerin) 200 mcg STK-MED ONCE .ROUTE ; Start 12/21/18 at 09:03; Stop 12/21/18 at 09:04; Status DC Nitroglycerin (Nitroglycerin) 200 mcg 1X ONCE IART Last administered on 12/21/18at 09:43; Start 12/21/18 at 09:45; Stop 12/21/18 at 09:46; Status DC Verapamil HCl (Verapamil) 2.5 mg 1X ONCE IART Last administered on 12/21/18at 09:43; Start 12/21/18 at 09:45; Stop 12/21/18 at 09:46; Status DC Heparin Sodium (Porcine) (Heparin Sodium) 2,500 unit 1X ONCE IART Last administered on 12/21/18at 09:45; Start 12/21/18 at 09:45; Stop 12/21/18 at 09:46; Status DC Heparin Sodium/ Sodium Chloride (HEPARIN for ARTERIAL LINE FLUSH) 1,000 unit 1X ONCE IART Last administered on 12/21/18at 09:43; Start 12/21/18 at 09:45; Stop 12/21/18 at 09:46; Status DC Midazolam HCl (Versed) 2 mg 1X ONCE IV Last administered on 12/21/18at 09:44; Start 12/21/18 at 09:45; Stop 12/21/18 at 09:46; Status DC Fentanyl Citrate (Fentanyl 2ml Vial) 100 mcg 1X ONCE IV Last administered on 12/21/18at 09:44; Start 12/21/18 at 09:45; Stop 12/21/18 at 09:46; Status DC Iodixanol (Visipaque 320) 36 ml 1X ONCE IART Last administered on 12/21/18at 09:43; Start 12/21/18 at 09:45; Stop 12/21/18 at 09:46; Status DC Lidocaine HCl (Xylocaine-Mpf 1% 2ml Vial) 2 ml 1X ONCE INJ Last administered on 12/21/18at 09:44; Start 12/21/18 at 09:45; Stop 12/21/18 at 09:46; Status DC Info (CONTRAST GIVEN -- Rx MONITORING) 1 each PRN DAILY PRN MC SEE COMMENTS; Start 12/21/18 at 09:45; Stop 12/23/18 at 09:44 Sodium Chloride 1,000 ml @ 60 mls/hr [id number] IV Last administered on 12/22/18at 02:28; Start 12/21/18 at 09:48 Nitroglycerin (Nitrostat) 0.4 mg PRN Q5MIN PRN SL CHEST PAIN; Start 12/21/18 at 10:00 Active Scripts Active Reported Diltiazem 24HR Cd (Diltiazem Hcl) 180 Mg Cap.er.24h 240 Mg PO DAILY Metoprolol Tartrate 100 Mg Tablet 1 Tab PO BID Lisinopril-Hctz 20-12.5 Mg Tab (Lisinopril/Hydrochlorothiazide) 1 Each Tablet 1 Tab PO DAILY Eliquis (Apixaban) 5 Mg Tablet 5 Mg PO BID Atorvastatin Calcium 10 Mg Tablet 10 Mg PO HS Metformin Hcl 500 Mg Tablet 500 Mg PO BIDWMEALS Vitals/I & O Vital Sign - Last 24 Hours 12/21/18 12/21/18 12/21/18 12/21/18 09:43 09:44 09:45 10:41 Pulse 78 80 69 Resp 16 16 B/P (MAP) 140/82 Pulse Ox 96 O2 Delivery Room Air Room Air 12/21/18 12/21/18 12/21/18 12/21/18 10:42 10:43 10:50 11:00 Temp 97.9 97.9 Pulse 69 69 69 76 Resp 18 B/P (MAP) 140/82 140/82 140/82 140/82 (101) Pulse Ox 97 O2 Delivery Room Air 12/21/18 12/21/18 12/21/18 12/21/18 15:00 19:35 20:00 21:00 Temp 97.8 98.4 97.8 98.4 Pulse 72 67 66 Resp 18 18 B/P (MAP) 116/52 (73) 127/67 (87) 140/60 Pulse Ox 95 94 O2 Delivery Room Air Room Air Room Air 12/21/18 12/22/18 12/22/18 12/22/18 23:05 03:00 03:54 07:00 Temp 98.0 98.1 98.0 98.0 98.1 98.0 Pulse 66 69 80 Resp 18 18 18 B/P (MAP) 140/60 (86) 137/77 (97) 129/66 (87) Pulse Ox 94 94 92 O2 Delivery Room Air Room Air Room Air Room Air 12/22/18 12/22/18 12/22/18 12/22/18 07:57 08:02 08:03 08:04 Pulse 80 80 80 B/P (MAP) 129/66 129/66 129/66 O2 Delivery Room Air 12/22/18 08:05 Pulse 80 B/P (MAP) 129/66 Intake and Output 12/21/18 12/21/18 12/22/18 14:59 22:59 06:59 Intake Total 650 ml 200 ml 200 ml Output Total 1225 ml 550 ml 1650 ml Balance -575 ml -350 ml -1450 ml ABIDA VARGAS MD December 22, 2018 09:23
--- NOTE | 2018-12-22 10:44 | PDOC3 ---
Discharge Summary Date of Admission: December 18, 2018 Date of Discharge: December 22, 2018 Follow-Up: 1-2 days Admitting Diagnosis comment: DISCHARGE DX Assessment/Plan IMPRESSION: Worsening of pulmonary edema/infiltrate , acute CHF A. fib ///flutter with RVR Left ventricle systolic function is low normal. recent echo The Ejection Fraction is 50%. Grade I-abnormal relaxation pattern. Pacer lead noted in RV/RA. Mild tricuspid regurgitation. moderate pulmonary hypertension. PA pressure was estimated at 55 mmHg. POORNIMA, vasomotor CKD STAGE 3-4 Plan 200MG PO DAILY AMIODARONE Biotronik to interrogate device BB for rate control TSH Eliquis for stroke prophylaxis heparin drip iv Cardizem drip consult cardiology DVT prophylaxis Full code Serial enzymes Serial EKGs Home meds d/c metformin due to CKD GI prophylaxis NEPHROLOGY CONSULT PT/OT Technologist: Becki Santana RT (R) Nurse: Nan Rivera R.N. Procedure(s) performed: Left heart catheterization, selective coronary angiography via right transradial approach Fluoro time 2.7 mins Dose 31.8669 Gycm2 Contrast 36 ml Visipaque Moderate sedation 18 MINUTES INDICATION The indication(s) include : Recurrent acute on chronic diastolic heart failure. [facility] Clinical Frailty Scale [facility] Clinical Frailty Scale: Managing Well Heart Failure Heart Failure: Yes If Yes, Newly Diagnosed: No If Yes, HF Type: Diastolic If Yes, NYHA Class: Class II PROCEDURE NARRATIVE After explaining the risks, benefits and alternative options, informed consent was obtained from patient. Patient was brought to the cardiac Parking Lot Supervisor and right wrist was prepped and draped in the usual fashion after confirming a positive modified Michael's test. Arterial access was obtained in the right radial artery and a 6 Cymro sheath was inserted. 6 Cymro Shola catheter was used to perform selective angiography of the left and right coronary arteries. LVEDP and transaortic gradients were measured. Left ventriculography was not performed due to elevated creatinine. Patient tolerated the procedure well. Hemostasis was achieved using TR band. There were no immediate complications. The following findings were noted. FINDINGS 1. Hemodynamics: Left ventricular end-diastolic pressure of 14 mmHg. No pullback gradient across the aortic valve. 2. Coronary angiography: a. The left main coronary artery arose from the left sinus of Valsalva, gave rise to the left anterior descending and left circumflex arteries and did not show any significant stenosis. b. The left anterior descending artery did not show any significant stenosis. c. The left circumflex artery did not show any significant stenosis. d. The right coronary artery was a large and dominant vessel arising from the right sinus of Valsalva that did not show any significant stenosis. Conclusion No significant coronary artery disease 37 min pt exam d/c planning, chart review, > 50% of time with exam, chart review, pt care coordination Vitals Vitals Vital Signs Date Time Temp Pulse Resp B/P (MAP) Pulse Ox O2 Delivery O2 Flow Rate FiO2 12/22/18 08:05 80 129/66 12/22/18 07:57 Room Air 12/22/18 07:00 98.0 18 92 98.0 Physical Exam Physical Exam Identification/Chief Complaint Chief Complaint seen in er , 78 year old male who presents with complaining of heart racing. 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 EKG showed atrial flutter with RVR and send to ER for evaluation. Patient complaining of generalized weakness without focal neuro deficit, fever and chills, chest pain, nausea and vomiting. Past Medical History Cardiovascular: AFIB, CHF, HTN, Hyperlipidemia, Other Pulmonary: COPD CENTRAL NERVOUS SYSTEM: Other GI: No pertinent hx Heme/Onc: No pertinent hx Hepatobiliary: No pertinent hx Psych: No pertinent hx Musculoskeletal: Osteoarthritis Rheumatologic: No pertinent hx Infectious disease: No pertinent hx Renal/: Chronic renal insuff Endocrine: Diabetes Past Surgical History Past Surgical History: Pacemaker Family History Family History: Coronary Artery Disease, Diabetes, High Cholestrol, Hypertension, Stroke Social History Smoke: No ALCOHOL: none Drugs: None General: Alert, Oriented X3, Cooperative, No acute distress Heart: Other (IRR rate 68) Lungs: Clear Abdomen: Normal bowel sounds, Soft Extremities: No cyanosis Skin: No rashes FINAL DIAGNOSIS Problems Medical Problems: (1) Anemia Status: Acute (2) Atrial flutter with rapid ventricular response Status: Acute (3) CHF (congestive heart failure) Status: Acute (4) Hypomagnesemia Status: Acute (5) Renal insufficiency Status: Acute (6) Shortness of breath Status: Acute Brief Hospital Course Mr. Nilson is a 78 old [sex] who presented with [ ] Discharge Medications Current Medications Diltiazem HCl (Cardizem Iv Push) 20 mg 1X ONCE IVP Last administered on 12/18/18at 09:29; Start 12/18/18 at 09:30; Stop 12/18/18 at 09:31; Status DC Amiodarone HCl 900 mg/Dextrose 518 ml @ 0 mls/hr 1X ONCE IV Last administered on 12/18/18at 10:02; Start 12/18/18 at 10:00; Stop 12/18/18 at 10:01; Status DC Diltiazem HCl 125 mg/Dextrose 125 ml @ 10 mls/hr 1X ONCE IV Last administered on 12/18/18at 09:45; Start 12/18/18 at 10:00; Stop 12/18/18 at 22:29; Status DC Diltiazem HCl (Cardizem Iv Push) 25 mg STK-MED ONCE .ROUTE ; Start 12/18/18 at 09:24; Stop 12/18/18 at 09:25; Status DC Heparin Sodium/ Dextrose 500 ml @ 0 mls/hr CONT PRN IV SEE I/O RECORD; Start 12/18/18 at 11:00; Stop 12/18/18 at 11:00; Status Cancel Heparin Sodium/ Dextrose 500 ml @ 20 mls/hr CONT PRN IV SEE I/O RECORD Last administered on 12/18/18at 11:21; Start 12/18/18 at 11:00; Stop 12/18/18 at 11:49; Status DC Heparin Sodium (Porcine) (Heparin Sodium) 2,050 unit PRN Q6HRS PRN IV FOR UFH LEVEL LESS THAN 0.2; Start 12/18/18 at 11:00; Stop 12/18/18 at 11:50; Status DC Apixaban (Eliquis) 5 mg BID PO ; Start 12/18/18 at 12:30; Stop 12/18/18 at 12:30; Status DC Atorvastatin Calcium (Lipitor) 10 mg HS PO Last administered on 12/21/18at 21:00; Start 12/18/18 at 21:00 Non-Formulary Medication (Lisinopril/ Hydrochlorothiazide (Lisinopril-Hctz 20- 12.5 Mg Tab)) 1 tab DAILY PO ; Start 12/19/18 at 09:00; Status UNV Magnesium Chloride (Mag Delay) 64 mg DAILY PO Last administered on 12/22/18at 08:04; Start 12/18/18 at 12:30 Non-Formulary Medication (Metformin Hcl ) 500 mg BIDWMEALS PO ; Start 12/18/18 at 17:00; Stop 12/18/18 at 17:00; Status DC Metoprolol Tartrate (Lopressor) 100 mg BID PO Last administered on 12/22/18at 08:04; Start 12/18/18 at 12:30 Lisinopril (Prinivil) 20 mg DAILY PO Last administered on 12/22/18 08:05; Start 12/18/18 at 12:30 Hydrochlorothiazide (Microzide) 12.5 mg DAILY PO Last administered on 12/22/18at 08:04; Start 12/18/18 at 12:30 Info (Anti-Coagulation Monitoring By Pharmacy) 1 each PRN DAILY PRN MC SEE COMMENTS Last administered on 12/21/18at 12:39; Start 12/18/18 at 12:00 Pantoprazole Sodium (Protonix) 40 mg DAILYAC PO Last administered on 12/22/18at 08:02; Start 12/18/18 at 12:00 Heparin Sodium/ Dextrose 500 ml @ 20 mls/hr CONT PRN IV SEE I/O RECORD; Start 12/18/18 at 12:00; Stop 12/18/18 at 12:47; Status DC Heparin Sodium (Porcine) (Heparin Sodium) 2,050 unit PRN Q6HRS PRN IV FOR UFH LEVEL LESS THAN 0.2; Start 12/18/18 at 12:00; Stop 12/19/18 at 09:50; Status DC Apixaban (Eliquis) 2.5 mg BID PO Last administered on 12/22/18at 08:03; Start 12/18/18 at 21:00 Furosemide (Lasix) 20 mg 1X ONCE IVP Last administered on 12/18/18at 14:40; Start 12/18/18 at 14:15; Stop 12/18/18 at 14:24; Status DC Magnesium Sulfate 50 ml @ 25 mls/hr 1X ONCE IV Last administered on 12/18/18at 14:43; Start 12/18/18 at 15:00; Stop 12/18/18 at 16:59; Status DC Diltiazem HCl 125 mg/Dextrose 125 ml @ 5 mls/hr CONT PRN IV SEE I/O RECORD Last administered on 12/19/18at 10:28; Start 12/18/18 at 22:00; Stop 12/19/18 at 11:48; Status DC Amiodarone HCl 450 mg/Dextrose 259 ml @ 17.26 mls/ hr CONT PRN IV SEE I/O RECORD; Start 12/19/18 at 05:00; Stop 12/19/18 at 11:48; Status DC Amiodarone HCl (Cordarone) 200 mg DAILY PO Last administered on 12/22/18at 08:03; Start 12/19/18 at 12:30 Diltiazem HCl (Cardizem 24hr Cd) 120 mg DAILY PO Last administered on 12/22/18at 08:02; Start 12/19/18 at 12:30 Iodixanol (Visipaque 320) 100 ml STK-MED ONCE .ROUTE ; Start 12/21/18 at 09:00; Stop 12/21/18 at 09:01; Status DC Lidocaine HCl (Xylocaine-Mpf 1% 2ml Vial) 2 ml STK-MED ONCE .ROUTE ; Start 12/21/18 at 09:00; Stop 12/21/18 at 09:01; Status DC Heparin Sodium/ Sodium Chloride 500 ml @ As Directed STK-MED ONCE .ROUTE ; Start 12/21/18 at 09:00; Stop 12/21/18 at 09:01; Status DC Fentanyl Citrate (Fentanyl 2ml Vial) 100 mcg STK-MED ONCE .ROUTE ; Start 12/21/18 at 09:03; Stop 12/21/18 at 09:04; Status DC Midazolam HCl (Versed) 2 mg STK-MED ONCE .ROUTE ; Start 12/21/18 at 09:03; Stop 12/21/18 at 09:04; Status DC Heparin Sodium (Porcine) (Heparin Sodium) 10,000 unit STK-MED ONCE .ROUTE ; Start 12/21/18 at 09:03; Stop 12/21/18 at 09:04; Status DC Verapamil HCl (Verapamil) 5 mg STK-MED ONCE .ROUTE ; Start 12/21/18 at 09:03; Stop 12/21/18 at 09:04; Status DC Nitroglycerin (Nitroglycerin) 200 mcg STK-MED ONCE .ROUTE ; Start 12/21/18 at 09:03; Stop 12/21/18 at 09:04; Status DC Nitroglycerin (Nitroglycerin) 200 mcg 1X ONCE IART Last administered on 12/21/18at 09:43; Start 12/21/18 at 09:45; Stop 12/21/18 at 09:46; Status DC Verapamil HCl (Verapamil) 2.5 mg 1X ONCE IART Last administered on 12/21/18at 09:43; Start 12/21/18 at 09:45; Stop 12/21/18 at 09:46; Status DC Heparin Sodium (Porcine) (Heparin Sodium) 2,500 unit 1X ONCE IART Last administered on 12/21/18at 09:45; Start 12/21/18 at 09:45; Stop 12/21/18 at 09:46; Status DC Heparin Sodium/ Sodium Chloride (HEPARIN for ARTERIAL LINE FLUSH) 1,000 unit 1X ONCE IART Last administered on 12/21/18at 09:43; Start 12/21/18 at 09:45; Stop 12/21/18 at 09:46; Status DC Midazolam HCl (Versed) 2 mg 1X ONCE IV Last administered on 12/21/18at 09:44; Start 12/21/18 at 09:45; Stop 12/21/18 at 09:46; Status DC Fentanyl Citrate (Fentanyl 2ml Vial) 100 mcg 1X ONCE IV Last administered on 12/21/18at 09:44; Start 12/21/18 at 09:45; Stop 12/21/18 at 09:46; Status DC Iodixanol (Visipaque 320) 36 ml 1X ONCE IART Last administered on 12/21/18at 09:43; Start 12/21/18 at 09:45; Stop 12/21/18 at 09:46; Status DC Lidocaine HCl (Xylocaine-Mpf 1% 2ml Vial) 2 ml 1X ONCE INJ Last administered on 12/21/18at 09:44; Start 12/21/18 at 09:45; Stop 12/21/18 at 09:46; Status DC Info (CONTRAST GIVEN -- Rx MONITORING) 1 each PRN DAILY PRN MC SEE COMMENTS; Start 12/21/18 at 09:45; Stop 12/23/18 at 09:44 Sodium Chloride 1,000 ml @ 60 mls/hr [id number] IV Last administered on 12/22/18at 02:28; Start 12/21/18 at 09:48 Nitroglycerin (Nitrostat) 0.4 mg PRN Q5MIN PRN SL CHEST PAIN; Start 12/21/18 at 10:00 Active Scripts Active Reported Diltiazem 24HR Cd (Diltiazem Hcl) 180 Mg Cap.er.24h 240 Mg PO DAILY Metoprolol Tartrate 100 Mg Tablet 1 Tab PO BID Lisinopril-Hctz 20-12.5 Mg Tab (Lisinopril/Hydrochlorothiazide) 1 Each Tablet 1 Tab PO DAILY Eliquis (Apixaban) 5 Mg Tablet 5 Mg PO BID Atorvastatin Calcium 10 Mg Tablet 10 Mg PO HS Metformin Hcl 500 Mg Tablet 500 Mg PO BIDWMEALS Vital Signs Vital Signs Date Time Temp Pulse Resp B/P (MAP) Pulse Ox O2 Delivery O2 Flow Rate FiO2 12/22/18 08:05 80 129/66 12/22/18 07:57 Room Air 12/22/18 07:00 98.0 18 92 98.0 Labs Laboratory Tests Test 12/21/18 04:10 White Blood Count 6.4 x10^3/uL (4.0-11.0) Red Blood Count 4.04 x10^6/uL (4.30-5.70) Hemoglobin 11.3 g/dL (13.0-17.5) Hematocrit 35.7 % (39.0-53.0) Mean Corpuscular Volume 88 fL (79-100) Mean Corpuscular Hemoglobin 28 pg (25-35) Mean Corpuscular Hemoglobin Concent 32 g/dL (31-37) Red Cell Distribution Width 14.5 % (11.5-14.5) Platelet Count 232 x10^3/uL (140-400) Neutrophils (%) (Auto) 69 % (31-73) Lymphocytes (%) (Auto) 17 % (24-48) Monocytes (%) (Auto) 10 % (0-9) Eosinophils (%) (Auto) 3 % (0-3) Basophils (%) (Auto) 1 % (0-3) Neutrophils # (Auto) 4.4 x10^3uL (1.8-7.7) Lymphocytes # (Auto) 1.1 x10^3/uL (1.0-4.8) Monocytes # (Auto) 0.7 x10^3/uL (0.0-1.1) Eosinophils # (Auto) 0.2 x10^3/uL (0.0-0.7) Basophils # (Auto) 0.0 x10^3/uL (0.0-0.2) Sodium Level 139 mmol/L (136-145) Potassium Level 3.8 mmol/L (3.5-5.1) Chloride Level 104 mmol/L (98-107) Carbon Dioxide Level 27 mmol/L (21-32) Anion Gap 8 (6-14) Blood Urea Nitrogen 16 mg/dL (8-26) Creatinine 1.4 mg/dL (0.7-1.3) Estimated GFR (Cockcroft-Gault) 59.2 BUN/Creatinine Ratio 11 (6-20) Glucose Level 113 mg/dL (70-99) Calcium Level 8.7 mg/dL (8.5-10.1) Total Bilirubin 0.4 mg/dL (0.2-1.0) Aspartate Amino Transf (AST/SGOT) 16 U/L (15-37) Alanine Aminotransferase (ALT/SGPT) 24 U/L (16-63) Alkaline Phosphatase 83 U/L (46-116) Total Protein 6.8 g/dL (6.4-8.2) Albumin 3.0 g/dL (3.4-5.0) Albumin/Globulin Ratio 0.8 (1.0-1.7) Allergies Allergies Coded Allergies Type Severity Reaction Last Updated Verified No Known Drug Allergies 11/30/13 No Disposition/Orders: D/C to Home Patient Instructions D/C PLANNING 37 MIN ABIDA VARGAS MD December 22, 2018 10:44
[2018-12-22] MEDS ORDERED: AMIO200T4 PO (10:46)
[2018-12-22] MEDS ORDERED: Pantoprazole PO (10:46)
--- NOTE | 2018-12-22 10:48 | DISCH ---
DISCHARGE INSTRUCTIONS Condition on Discharge Condition on Discharge: Stable Activity After Discharge Activity Instructions for Disc: Activity as tolerated Lifting Instructions after Dis: No heavy lifting, No pulling or pushing, Do not lift >10 pounds Exercise Instruction after Dis: Progress as tolerated Weight Bearing Status after Di: As tolerated Diet after Discharge Diet after Discharge: Cardiac, Renal Non-Dialysis, Diabetic No Calorie Level Diet Texture: Regular Liquid Texture: Thin Liquid Swallowing Supervision: None needed Checks after Discharge Checks after discharge: Check blood press - daily, Check blood sugar, ac/hs, Check your Temp as needed, Weigh Yourself Daily Contacting the DR. after DC Call your doctor for: If your condition worsens Treatment/Equipment after DC Adaptive Equipment Issued: ABIDA Simmons MD December 22, 2018 10:48
[2018-12-22 10:55] VITALS: BP 150/59
--- NOTE | 2018-12-22 11:46 | SNU/HH DC ---
DISCHARGE WITH HOME HEALTH DISCHARGE INFORMATION: Final Diagnosis: Problems Medical Problems: (1) Anemia Status: Acute (2) Atrial flutter with rapid ventricular response Status: Acute (3) CHF (congestive heart failure) Status: Acute (4) Hypomagnesemia Status: Acute (5) Renal insufficiency Status: Acute (6) Shortness of breath Status: Acute Condition on Discharge: Stable CODE STATUS: Code Status: Full HOME HEALTH: Face to Face: I certify this patient is under my care and that I, or a nurse practitioner or physician's grooming assistant working with me, had a face to face encounter that meets the physician face to face encounter requirements with this patient on []. Medical Complications: HTN RN For Eval/Treatment: Yes Physical Therapy For: Evalulation/Treatment Occupational Therapy For: Evaluation/Treatment Home Health Aide For: Self-care DIRECTOR EXECUTIVE COMMUNICATIONS For: Community Resources Pt Meets Homebound Status: Unsteady balance w/ amb, POST DISCHARGE ORDERS: Activity Instructions for Disc: Activity as tolerated, Other, see below Weight Bearing Status after Di: As tolerated DIET AFTER DISCHARGE: ADA Wound/Incision Care: Other, see below Other wound/incision instructi: see instruction sheet for wrist care CHECKS AFTER DISCHARGE: Checks after discharge: Check blood press - daily, Check blood sugar, ac/hs, Check your Temp as needed, Weigh Yourself Daily FOLLOW-UP: Follow up with: Primary care Dr in 1 week Follow Up With: Dr Herrera in 1 month TREATMENT/EQUIPMENT ORDERS: Adaptive Equipment Issued: Cane CERTIFICATION STATEMENT: Certification Statement: Certification Statement: Based on the above finding, I certify that this patient is confined to the home and needs intermittent fci care, physical therapy and/or speech therapy, or continues to need occupational therapy.~ This patient is under my care, and I have initiated the establishment of the plan of care.~ This patient will be followed by myself or a community physician who will periodically review the plan of care. Home Meds Active Scripts Amiodarone Hcl (AMIODARONE HCL) 200 Mg Tablet, 200 MG PO DAILY for HEART RHYTHM for 30 Days, #30 TAB Prov:ABIDA VARGAS MD 12/22/18 [Pantoprazole] [address] Billingsley Conflict Check, 40 MG PO DAILYAC for STOMACH ACID for 30 Days, #30 Prov:ABIDA VARGAS MD 12/22/18 Reported Medications Diltiazem Hcl (DILTIAZEM 24HR CD) 180 Mg Cap.er.24h, 240 MG PO DAILY for HR, CA P.SR 12/18/18 Metoprolol Tartrate (METOPROLOL TARTRATE) 100 Mg Tablet, 1 TAB PO BID for HR/HTN, #60 TAB 5 Refills 12/11/18 Lisinopril/Hydrochlorothiazide (LISINOPRIL-HCTZ 20-12.5 MG TAB) 1 Each Tablet, 1 TAB PO DAILY for HTN 12/10/18 Apixaban (ELIQUIS) 5 Mg Tablet, 5 MG PO BID for pacemaker 12/10/18 Atorvastatin Calcium (ATORVASTATIN CALCIUM) 10 Mg Tablet, 10 MG PO HS for HDL 12/10/18 Discontinued Reported Medications Metformin Hcl (METFORMIN HCL) 500 Mg Tablet, 500 MG PO BIDWMEALS for ANTI- DIABETIC, TAB 0 Refills 12/29/17 ABIDA VARGAS MD December 22, 2018 11:46
--- NOTE | 2018-12-22 11:52 | NUR ---
Right wrist board removed. Discharge teaching provided written and verbal to pt,understanding verbalized. Dismissed to home with all belongings accompanied by his daughter in law. Transported to exit per w/c at 1140.
--- NOTE | 2018-12-22 12:00 | NUR ---
SS following up with discharge planning. Discharge orders received for home healthcare. SS phoned and faxed referral to [facility], ; fax [phone]. Pt's RN notified.
== END 2018-12-22 11:40 | disposition home health service (06) | DRG 286 ==
LOC: ER 09:10 → 2 SOUTH 09:47
PROVIDERS: ADMIT Family Medicine; ATTEND Family Medicine
PROC: 4A023N7 Measurement of Cardiac Sampling and Pressure, Left Heart, Percutaneous Approach (ICD-10-PCS; principal; 2018-12-21)
PROC: B2111ZZ Fluoroscopy of Multiple Coronary Arteries using Low Osmolar Contrast (ICD-10-PCS; 2018-12-21)
DX: I13.0 Hypertensive heart and chronic kidney disease with heart failure and stage 1 through stage 4 chronic kidney disease, or unspecified chronic kidney disease (principal); I50.33 Acute on chronic diastolic (congestive) heart failure; N17.0 Acute kidney failure with tubular necrosis; I48.92 Unspecified atrial flutter; N18.4 Chronic kidney disease, stage 4 (severe); I48.0 Paroxysmal atrial fibrillation; D64.9 Anemia, unspecified; E83.42 Hypomagnesemia; E78.5 Hyperlipidemia, unspecified; J44.9 Chronic obstructive pulmonary disease, unspecified; M19.90 Unspecified osteoarthritis, unspecified site; E11.22 Type 2 diabetes mellitus with diabetic chronic kidney disease; I07.1 Rheumatic tricuspid insufficiency; I27.20 Pulmonary hypertension, unspecified; F17.200 Nicotine dependence, unspecified, uncomplicated; I49.5 Sick sinus syndrome; Z79.01 Long term (current) use of anticoagulants; Z82.49 Family history of ischemic heart disease and other diseases of the circulatory system; Z82.3 Family history of stroke; Z83.3 Family history of diabetes mellitus; Z95.0 Presence of cardiac pacemaker; Z71.6 Tobacco abuse counseling
CPT/HCPCS: 36415; 71045; 76770; 80053; 80069; 81001; 82550; 83735; 83880; 84484; 85025; 85610; 93005; 93458; 96365; 96368; 96375; 99152; C1769; C1892; J0282; J1644; J1940; J2250; J3010; J3475; J3490; Q9967; 97116; 99285-25